=== PATIENT | male | born 1955 | race Caucasian/White ===

== ENCOUNTER → 2020-04-29 09:37 | Outpatient (BNVA) | payer MEDICARE, OTHER, SELFPAY | PROVIDERS: Visit Provider Orthopaedic Surgery | DX: M17.11 Unilateral primary osteoarthritis, right knee (principal) | CPT/HCPCS: 20610; 99212; J1040 ==

== ENCOUNTER → 2020-06-02 09:21 | Outpatient (REF) | payer MEDICARE, OTHER, SELFPAY ==
--- NOTE | 2020-06-02 09:30 | CA_ITS ---
Transthoracic Echocardiogram Patient (Last, First, Middle): Zeb Mcdonald, Gender: Male Date of : 1955 Age: 64 Procedure Date: 06/02/2020 Procedure Type: Transthoracic Echocardiogram Location: OP Height: 187.96 cm Weight: 117.03 kg BSA: 2.42 m2 Heart Rate: bpm BP: 120 / 76 mmHg Handy Man: Referring MD: Raheel York MD Symptoms: I48.0PAF, G47.30 SLEEP APNEA I10 HTN I50.32 HFpEF Study Quality: Fair ECG Rhythm: Sinus Conclusions: - The left ventricular systolic function is low normal. The visually estimated ejection fraction is between 50-55%. - There is mild calcification of the aortic valve. - Top normal ascending aortic size at 3.8 cm. Findings Left Ventricle Normal left ventricular cavity size. There is mildly increased left ventricular wall thickness. The left ventricular systolic function is low normal. The visually estimated ejection fraction is between 50-55%. There is no evidence of regional wall motion abnormalities. Diastolic function is normal for age. Right Ventricle Normal right ventricular cavity size and systolic function. Atria The left atrium is normal in size. The right atrium is normal in size. Aortic Valve There is a normal trileaflet aortic valve. There is mild calcification of the aortic valve. There is no aortic valve stenosis. There is no aortic valve regurgitation. Mitral Valve The mitral valve appears normal. There is trace mitral valve regurgitation. There is no mitral valve stenosis. Pulmonic Valve The pulmonic valve was not well visualized. Tricuspid Valve Normal tricuspid valve structure. There is trace tricuspid valve regurgitation. The pulmonary artery systolic pressure is normal. Great Vessels Top normal ascending aortic size at 3.8 cm. Venous The inferior vena cava is normal in size and collapses greater than 50% with inspiration. Pericardium/Pleural There is no evidence of pericardial effusion. Prior Study Comparison No significant change compared to prior study dated: 05/11/2019. Measurements 2D Linear Measurements RVIDd: 3.51 RVIDd Index: 1.45 IVSd: 1.19 0.6-0.9/0.6-1.0 cm LVIDd: 5.53 3.9-5.3/4.2-5.9 cm LVIDd Index: 2.29 2.4-3.2/2.2-3.1 cm/m2 LVIDs: 3.61 2.0-3.6 cm LVPWd: 1.08 0.7-1.1 cm Ao Root: 3.30 2.1-3.5 cm LA Diam: 3.90 2.7-3.8/3.0-4.0 cm LAIDs Index: 1.61 1.5-2.3 cm/m2 LV Mass: 317.66 67-162/88-224 g LV Mass Index: 131.26 43-95/49-115 g/m2 LVOT Diam: 2.30 3.0+(-)1.3 cm 2D Systolic Function EF 4C: 61.30 >55% EF 2C: 33.70 >55% EF BiP: 50.50 >55% Mitral Valve MV Pk E: 0.57 MV PK A: 0.81 MV Decel Time: 259.00 E/A: 0.70 E'Lateral: 6.09 E'Medial: 5.22 E/E' Med: 10.90 E/E' Lat: 9.30 Aortic Valve AoV Pk Watson: 1.21 AoV Mn Watson: 0.95 AoV VTI: 0.29 AoV Pk Grad: 6.00 Aov Mn Grad: 4.00 NANCY Cont.VTI: 3.41 LVOT LVOT Pk Watson: 1.20 LVOT Mn Watson: 0.80 LVOT VTI: 0.24 LVOT Pk Grad: 6.00 LVOT Mn Grad: 3.00 LVOT Diam: 2.30 LVOT Area: 4.15 Diastolic Function MV Pk E: 0.57 MV Pk A: 0.81 E/A: 0.70 E'Medial: 5.22 E/E' Med: 10.90 E' Laterial: 6.09 E/E' Lat: 9.30 Tricuspid Valve TR Pk Watson: 2.42 TR Pk Grad: 23.00 RA Press: 3.00 RVSP: 26.00 Great Vessels Aorta Ao Root-2D: 3.30 2.0-3.7 cm Ao Asc: 3.80 2.1-3.4 cm Ao Arch: 3.20 Updated in Other Vendor System with Status of Final Liang Donnelly MD electronically signed on 06/02/2020 4:36:20 PM with status of Final
== END ==
LOC: HO.CARD 09:21
PROVIDERS: Visit Provider Internal Medicine Cardiovascular Disease
DX: I48.0 Paroxysmal atrial fibrillation (principal); G47.30 Sleep apnea, unspecified; I50.32 Chronic diastolic (congestive) heart failure; I11.0 Hypertensive heart disease with heart failure
CPT/HCPCS: 93306

== ENCOUNTER → 2020-06-16 08:42 | Outpatient (BNVA) | payer MEDICARE, MEDICAID, OTHER, SELFPAY | PROVIDERS: Visit Provider Internal Medicine Cardiovascular Disease | DX: I48.0 Paroxysmal atrial fibrillation (principal); I50.32 Chronic diastolic (congestive) heart failure; I10 Essential (primary) hypertension | CPT/HCPCS: 93005; 99212 ==

== ENCOUNTER → 2020-10-28 09:29 | Outpatient (BNVA) | payer MEDICARE, OTHER, SELFPAY | PROVIDERS: Visit Provider Orthopaedic Surgery | DX: M17.11 Unilateral primary osteoarthritis, right knee (principal) | CPT/HCPCS: 20610; 99212; J1040 ==

== ENCOUNTER 2021-02-10 08:33 | Outpatient (REF) | payer MEDICARE, OTHER, SELFPAY ==
--- NOTE | ~2021-02-10 | MR_ITS ---
MRI OF THE BRAIN WITH AND WITHOUT IV CONTRAST INDICATION: TINNITUS BILATERAL COMPARISON: None available. TECHNIQUE: Multiplanar multisequence MR imaging of the brain was obtained without and following the administration of 10 ml of Gadavist without complication with dedicated IAC pulse series. FINDINGS: The inner ear structures including the cochlea, vestibules, and semicircular canals exhibit preserved CSF signal intensity with no pathologic enhancement. The vestibular aqueducts are not enlarged. Cranial nerves VII and VIII complexes are normal in morphology. No enhancing CP angle/retrocochlear lesion. There is no pathologic intracranial enhancement. Moderate chronic microangiopathy. No acute infarct on diffusion-weighted imaging. No intracranial hemorrhage on the gradient series. No hydrocephalus, extra-axial surface collection, or herniation. The midline intracranial structures are normal. Cerebellar tonsils are normally positioned. Craniocervical junction is normal. Osseous marrow signal intensity remains homogeneous. No significant soft tissue abnormality is appreciated. MR/MR head/brain wo/w con IMPRESSION: - No retrocochlear pathology. - Moderate chronic microangiopathy.
[2021-02-10 09:10] LABS: Blood Urea Nitrogen 11 mg/dL (9-16); Estimated Glomerular Filt Rate > 60
== END 2021-02-10 08:34 | disposition home or self-care (01) ==
LOC: HO.MRI 08:33
PROVIDERS: Absent Provider Internal Medicine; PCP Internal Medicine; Visit Provider Internal Medicine
DX: I10 Essential (primary) hypertension (principal); H93.13 Tinnitus, bilateral
CPT/HCPCS: 36415; 70553; 82565; 84520; A9585

== ENCOUNTER 2021-05-03 07:35 | Outpatient (REF) | payer MEDICARE, OTHER, SELFPAY ==
--- NOTE | ~2021-05-03 | XR_ITS ---
EXAMINATION: XR KNEE, RIGHT XR KNEE, BILATERAL CLINICAL INFORMATION: Pain COMPARISON: 12/02/2019 TECHNIQUE: AP standing view of both knees. Lateral and sunrise views of the right knee. FINDINGS: Right knee: No fracture or subluxation. Severe medial compartment joint space narrowing with [id number] appearance. This is similar to prior. Mild narrowing at the patellofemoral compartment. Prominent tricompartmental marginal osteophytes. No joint effusion. Vascular calcifications. Left knee: No fracture or subluxation. Mild medial compartment joint space narrowing noted. Small marginal osteophytes at the medial and lateral compartments. XR/XR knee standing BI IMPRESSION: Right knee: Advanced tricompartmental degenerative changes which are greatest at the medial compartment with severe narrowing. Left knee: Mild narrowing of the medial compartment, similar to prior.
--- NOTE | ~2021-05-03 | XR_ITS ---
EXAMINATION: XR KNEE, RIGHT XR KNEE, BILATERAL CLINICAL INFORMATION: Pain COMPARISON: 12/02/2019 TECHNIQUE: AP standing view of both knees. Lateral and sunrise views of the right knee. FINDINGS: Right knee: No fracture or subluxation. Severe medial compartment joint space narrowing with [id number] appearance. This is similar to prior. Mild narrowing at the patellofemoral compartment. Prominent tricompartmental marginal osteophytes. No joint effusion. Vascular calcifications. Left knee: No fracture or subluxation. Mild medial compartment joint space narrowing noted. Small marginal osteophytes at the medial and lateral compartments. XR/XR knee RT 2V IMPRESSION: Right knee: Advanced tricompartmental degenerative changes which are greatest at the medial compartment with severe narrowing. Left knee: Mild narrowing of the medial compartment, similar to prior.
== END 2021-05-03 07:36 | disposition home or self-care (01) ==
LOC: HO.HOSX 07:35
PROVIDERS: Visit Provider Physician Assistant
DX: M17.11 Unilateral primary osteoarthritis, right knee (principal)
CPT/HCPCS: 20610; 73560; 73565; 99212; J1040

== ENCOUNTER 2021-06-17 08:26 | Outpatient (REF) | payer MEDICARE, OTHER, SELFPAY ==
[2021-06-17 10:33] LABS: Anion Gap 10 (12-20); Blood Urea Nitrogen 13 mg/dL (9-16); Calcium 9.6 mg/dL (8.4-10.2); Carbon Dioxide 32 mmol/L (22-29); Chloride 103 mmol/L (96-108); Estimated Glomerular Filt Rate > 60; Glucose Random 92 mg/dL (60-115); Sodium 140 mmol/L (135-145)
[2021-06-17 10:44] LABS: B Type Natriuretic Peptide 41 pg/mL (<100)
== END 2021-06-17 08:27 | disposition home or self-care (01) ==
LOC: HO.LAB 08:26
PROVIDERS: PCP Internal Medicine; Visit Provider Internal Medicine Cardiovascular Disease
DX: I48.0 Paroxysmal atrial fibrillation (principal); I11.0 Hypertensive heart disease with heart failure; I50.32 Chronic diastolic (congestive) heart failure; R00.1 Bradycardia, unspecified; Z79.899 Other long term (current) drug therapy
CPT/HCPCS: 36415; 80048; 83880; 93005; 99212

== ENCOUNTER → 2021-08-09 09:22 | Outpatient (BNVA) | payer MEDICARE, OTHER, SELFPAY | PROVIDERS: PCP Internal Medicine; Visit Provider Physician Assistant | DX: M17.11 Unilateral primary osteoarthritis, right knee (principal) | CPT/HCPCS: 20610; 99212; J1040 ==

== ENCOUNTER → 2021-11-09 08:56 | Outpatient (BNVA) | payer MEDICARE, MEDICAID, SELFPAY | PROVIDERS: PCP Internal Medicine; Visit Provider Physician Assistant | DX: M17.11 Unilateral primary osteoarthritis, right knee (principal) | CPT/HCPCS: 20610; 99212; J1040 ==

== ENCOUNTER → 2022-02-11 09:12 | Outpatient (BNVA) | payer MEDICARE, MEDICAID, SELFPAY | PROVIDERS: PCP Internal Medicine; Visit Provider Physician Assistant | DX: M17.11 Unilateral primary osteoarthritis, right knee (principal) | CPT/HCPCS: 20610; 99212; J1040 ==

== ENCOUNTER → 2022-05-13 09:13 | Outpatient (BNVA) | payer MEDICARE, MEDICAID, SELFPAY | PROVIDERS: PCP Internal Medicine; Visit Provider Physician Assistant | DX: M17.11 Unilateral primary osteoarthritis, right knee (principal) | CPT/HCPCS: 20610; 99212; J1040 ==

== ENCOUNTER → 2022-06-06 08:23 | Outpatient (REF) | payer MEDICARE, MEDICAID, SELFPAY ==
--- NOTE | 2022-06-06 08:27 | CA_ITS ---
Transthoracic Echocardiogram Patient (Last, First, Middle): Zeb Mcdonald, Gender: Male Date of : 1955 Age: 66 Procedure Date: 06/06/2022 Procedure Type: Transthoracic Echocardiogram Location: OP Height: 187.96 cm Weight: 116.12 kg BSA: 2.41 m2 Heart Rate: 56 bpm BP: 134 / 68 mmHg Batch Still Operator: Referring MD: Raheel York MD Symptoms: I48.0 - Paroxysmal atrial fibrillation Study Quality: Adequate ECG Rhythm: Sinus Conclusions: - The left ventricular systolic function is normal. The calculated ejection fraction is 60% by biplane method. - No obvious valvular pathology seen on this study. - There is mild dilatation of the ascending aorta measuring 4.00 cm. Findings Left Ventricle Normal left ventricular cavity size. There is mildly increased left ventricular wall thickness. The left ventricular systolic function is normal. The calculated ejection fraction is 60% by biplane method. There is no evidence of regional wall motion abnormalities. Diastolic function is normal for age. Right Ventricle Normal right ventricular cavity size and systolic function. Atria Both atria are normal in size. Aortic Valve There is a normal trileaflet aortic valve. There is mild calcification of the aortic valve. There is no aortic valve stenosis. There is no aortic valve regurgitation. Mitral Valve The mitral valve appears normal. There is no mitral valve regurgitation. There is no mitral valve stenosis. Pulmonic Valve The pulmonic valve is likely normal. Tricuspid Valve There is trace tricuspid valve regurgitation. There is no evidence of pulmonary hypertension. Great Vessels There is mild dilatation of the ascending aorta measuring 4.00 cm. Venous The inferior vena cava is normal in size and collapses greater than 50% with inspiration. Pericardium/Pleural There is no evidence of pericardial effusion. Prior Study Comparison Changes noted compared to prior study dated: 06/02/2020. Slight change in ascending aortic size. Recommendations, Care & Conclusions No obvious valvular pathology seen on this study. Measurements 2D Linear Measurements IVSd: 1.23 0.6-0.9/0.6-1.0 cm LVIDd: 4.66 3.9-5.3/4.2-5.9 cm LVIDd Index: 1.93 2.4-3.2/2.2-3.1 cm/m2 LVIDs: 3.15 2.0-3.6 cm LVPWd: 1.24 0.7-1.1 cm Ao Root: 4.10 2.1-3.5 cm LA Diam: 3.70 2.7-3.8/3.0-4.0 cm LAIDs Index: 1.54 1.5-2.3 cm/m2 LV Mass: 271.72 67-162/88-224 g LV Mass Index: 112.75 43-95/49-115 g/m2 LVOT Diam: 2.50 3.0+(-)1.3 cm 2D Systolic Function EF 4C: 64.80 >55% EF 2C: 53.30 >55% EF BiP: 60.20 >55% Mitral Valve MV Pk E: 0.44 MV PK A: 0.79 MV Decel Time: 282.00 E/A: 0.60 E'Lateral: 7.94 E'Medial: 5.22 E/E' Med: 8.40 E/E' Lat: 5.50 PHT: 83.00 MVA PHT: 2.65 Decel [place]: 1.55 Aortic Valve AoV Pk Watson: 1.30 AoV Mn Watson: 0.83 AoV VTI: 0.23 AoV Pk Grad: 7.00 Aov Mn Grad: 3.00 NANCY Cont.VTI: 3.94 LVOT LVOT Pk Watson: 0.84 LVOT Mn Watson: 0.57 LVOT VTI: 0.19 LVOT Pk Grad: 3.00 LVOT Mn Grad: 2.00 LVOT Diam: 2.50 LVOT Area: 4.91 Diastolic Function MV Pk E: 0.44 MV Pk A: 0.79 E/A: 0.60 E'Medial: 5.22 E/E' Med: 8.40 E' Laterial: 7.94 E/E' Lat: 5.50 Right Ventricle TAPSE (mm): 26.00 TVS' Watson: 12.00 Tricuspid Valve TR Pk Watson: 1.88 TR Pk Grad: 14.00 RA Press: 3.00 RVSP: 17.00 Great Vessels Aorta Ao Root-2D: 4.10 2.0-3.7 cm Ao Asc: 4.00 2.1-3.4 cm Pulmonary Valve PV Pk Watson: 0.89 Peak PV Grad: 3.00 Updated in Other Vendor System with Status of Final Liang Donnelly MD electronically signed on 06/07/2022 8:44:18 AM with status of Final
== END ==
LOC: HO.CARD 08:23
PROVIDERS: Visit Provider Internal Medicine Cardiovascular Disease
DX: I48.0 Paroxysmal atrial fibrillation (principal)
CPT/HCPCS: 93306

== ENCOUNTER → 2022-06-20 08:42 | Outpatient (BNVA) | payer MEDICARE, MEDICAID, SELFPAY | PROVIDERS: PCP Internal Medicine; Referring Provider Internal Medicine; Visit Provider Internal Medicine Cardiovascular Disease | DX: I48.0 Paroxysmal atrial fibrillation (principal); I50.32 Chronic diastolic (congestive) heart failure; I71.20 Thoracic aortic aneurysm, without rupture, unspecified | CPT/HCPCS: 93005; 99212 ==

== ENCOUNTER → 2022-08-11 09:14 | Outpatient (BNVA) | payer MEDICARE, MEDICAID, SELFPAY | PROVIDERS: PCP Internal Medicine; Visit Provider Physician Assistant | DX: M17.11 Unilateral primary osteoarthritis, right knee (principal) | CPT/HCPCS: 20610; 99212; J1040 ==

== ENCOUNTER → 2022-11-08 09:04 | Outpatient (BNVA) | payer MEDICARE, MEDICAID, SELFPAY | PROVIDERS: PCP Internal Medicine; Visit Provider Physician Assistant | DX: M17.11 Unilateral primary osteoarthritis, right knee (principal) | CPT/HCPCS: 20610; 99212; J1040 ==

== ENCOUNTER 2023-02-10 09:19 | Outpatient (AMB) | payer MEDICARE, MEDICAID, SELFPAY ==
--- NOTE | 2023-02-10 09:26 | A.OFFVIS_ITS ---
Intake Intake Visit Reasons: OV-RT knee injection, last inject-11/08/22 Intake Note: Zeb is a 67 year old male who presents today for a follow up of right knee OA, last injection 11/08/22. Patient report his last injection helped him for 3 months. He states that he would like to repeat. Allergies No Known Allergies [No Known Allergies*] Allergy (Verified 02/10/23 09:30) HPI OV-RT knee injection, last inject-11/08/22 HPI Details 67-year-old male who presents in the off ice today for a follow up of right knee pain. The patient had a cortisone injection in the right knee on 11/08/2022. He reports 3 months of relief with the injection. He would like a repeat injection today. [facility] Medical History Chronic diastolic (congestive) heart failure Hypertension Paroxysmal atrial fibrillation Primary osteoarthritis of right knee Sleep apnea Family History Mother No problems noted. Father No problems noted. Social History Alcohol intake: current Alcohol intake frequency: a few times a week Alcohol type: wine Patient Tobacco Use Status: Current everyday Tobacco user Cigarettes Per Day: 8 Years Smoked: 50 Current occupational status: retired Current occupation: Right Handed Review of Systems Const All systems reviewed & are unremarkable except as noted in HPI and below Physical Exam Const General: cooperative, healthy appearing and no acute distress Resp Effort & Inspection: normal respiratory effort and able to speak in complete sentences Cardio Rate: regular rate Peripheral pulses: Peripheral pulses 2+ throughout GI Palpation (GI): Soft to palpation Skin Lesions: no lesions Rashes: no rashes Extrem Other: Right knee normal to inspection. No ecchymosis, redness or joint effusion. Patient is able to demonstrate full knee flexion extension. Crepitus felt with knee range of motion. Negative Lanie. NVI. Office Procedures Joint Injection/Drain Joint Injection/Drain Primary Site: right knee Prep: site was prepped using aseptic technique, ethochloride spray was applied and injection warnings given Injected: 80 mg of, DepoMedrol, with 8 mL of ( 2% plain lido ) and in the joint Approach Used: anterolateral Procedure: The patient tolerated the procedure well, but had some pain with the injection and there was some relief with the local anesthesia Coding - Large joint Procedure code (CPT) selection complete Assessment & Plan Assessment & Plan (1) Primary osteoarthritis of right knee: Code(s): M17.11 - Unilateral primary osteoarthritis, right knee Plan Mr. Mcdonald is a 67-year-old male who presents in the office today for a follow up of right knee pain. The patient had a cortisone injection in the right knee on 11/08/2022. He reports 3 months of relief with the injection. He would like a repeat injection today. The patient was offered a cortisone injection in the right knee with 80 mg of DepoMedrol. The patient was explained the risk, benefits, and alternatives to re ceiving this injection. After receiving consent for the injection, the patient had the procedure done while in office today. The patient tolerated the procedure well with no complications. Follow up will be PRN, or sooner if needed. Patient Instructions: Scribed for Marta Murray PA-C by Marcia Medina medical secretary receptionist, on 02/10/2023 at 9:21 am EST. Coding Level of Care Code Est Pt Level 3 (96802) Diagnoses Primary osteoarthritis of right knee M17.11 CPT Codes Coding - Large joint: 32966 - Large joint ([id number])
== END 2023-02-10 09:38 | disposition home or self-care (01) ==
PROVIDERS: PCP Internal Medicine; Visit Provider Physician Assistant
DX: M17.11 Unilateral primary osteoarthritis, right knee (principal)
CPT/HCPCS: 20610; 99213

== ENCOUNTER → 2023-02-10 09:19 | Outpatient (BNVA) | payer MEDICARE, MEDICAID, SELFPAY | PROVIDERS: PCP Internal Medicine; Visit Provider Physician Assistant | DX: M17.11 Unilateral primary osteoarthritis, right knee (principal) | CPT/HCPCS: 20610; 99212; J1040 ==

== ENCOUNTER 2023-02-21 09:51 | Outpatient (REF) | payer MEDICARE, MEDICAID, SELFPAY ==
[2023-02-21 15:19] LABS: Alanine Aminotransferase 29 U/L (0-40); Albumin Level 4.3 g/dL (3.5-5.0); Alkaline Phosphatase 82 U/L (39-117); Anion Gap 11 (12-20); Aspartate Amino Transferase 23 U/L (5-37); Bilirubin Direct 0.2 mg/dL (0.0-0.5); Bilirubin Total 0.6 mg/dL (0.0-1.0); Blood Urea Nitrogen 14 mg/dL (9-16); Calcium 9.5 mg/dL (8.4-10.2); Carbon Dioxide 26 mmol/L (22-29); Chloride 103 mmol/L (96-108); Cholesterol 155 mg/dL (<200); Estimated Glomerular Filt Rate > 60; Glucose Fasting 88 mg/dL (60-99); HDL Cholesterol 39 mg/dL (>40); LDL Cholesterol Calculated 102 mg/dL (<100); Potassium 4.2 mmol/L (3.3-5.1); Sodium 136 mmol/L (135-145); Total Protein 7.5 g/dL (6.5-8.0); Triglycerides 72 mg/dL (<150)
[2023-02-21 15:32] LABS: Estimated Average Glucose 120 mg/dL; Hemoglobin A1c % 5.8 % (<6.0); Prostate Specific Antigen 1.21 ng/mL (<0.05-4.0)
[2023-02-21 15:36] LABS: TSH reflex Free T4 1.58 uIU/mL (0.32-4.0)
[2023-02-22 04:20] LABS: ~HepC Num1 13.04 S/CO (0.00-0.79); ~Hepatitis C Antibody Reactive (Nonreactive)
[2023-02-25 21:38] LABS: HIV RNA PCR Qn Copies Not Detected Copies/mL; HIV RNA PCR Qn Log Copies Not Detected Log cps/mL
== END 2023-02-21 09:52 | disposition home or self-care (01) ==
LOC: HO.CHCLDS 09:51
PROVIDERS: Visit Provider Internal Medicine
DX: Z12.5 Encounter for screening for malignant neoplasm of prostate (principal); I48.21 Permanent atrial fibrillation; I10 Essential (primary) hypertension; E78.2 Mixed hyperlipidemia; N42.9 Disorder of prostate, unspecified; E88.81 Metabolic syndrome and other insulin resistance
CPT/HCPCS: 36415; 80048; 80061; 80076; 83036; 84153; 84443; 86803; 87522; 87536; 87900

== ENCOUNTER 2023-05-12 09:24 | Outpatient (AMB) | payer MEDICARE, MEDICAID, SELFPAY ==
--- NOTE | 2023-05-12 09:34 | A.OFFVIS_ITS ---
Intake Intake Visit Reasons: OV-RT knee injection, last inject-02/10/23 Intake Note: Zeb is a 67 year old male who presents today for a follow up of right knee OA, last injection 02/10/23. Patient report Allergies No Known Allergies [No Known Allergies*] Allergy (Verified 02/10/23 09:30) HPI OV-RT knee injection, last inject-02/10/23 HPI Details 67-year-old male who presents in the off ice today for a follow up of right knee pain. I last saw the patient in the office on 02/10/2023 where he received a cortisone injection in the right knee. [facility] Medical History Chronic diastolic (congestive) heart failure Hypertension Paroxysmal atrial fibrillation Primary osteoarthritis of right knee Sleep apnea Family History Mother No problems noted. Father No problems noted. Social History Alcohol intake: current Alcohol intake frequency: a few times a week Alcohol type: wine Patient Tobacco Use Status: Current everyday Tobacco user Cigarettes Per Day: 8 Years Smoked: 50 Current occupational status: retired Current occupation: Right Handed Review of Systems Const All systems reviewed & are unremarkable except as noted in HPI and below Physical Exam Const General: cooperative, healthy appearing and no acute distress Resp Effort & Inspection: normal respiratory effort and able to speak in complete sentences Cardio Rate: regular rate Peripheral pulses: Peripheral pulses 2+ throughout GI Palpation (GI): Soft to palpation Skin Lesions: no lesions Rashes: no rashes Extrem Other: Right knee normal to inspection. No ecchymosis, redness or joint effusion. Patient is able to demonstrate full knee flexion extension. Crepitus felt with knee range of motion. Negative Lanie. NVI. Office Procedures Joint Injection/Drain Joint Injection/Drain Primary Site: right knee Prep: site was prepped using aseptic technique, ethochloride spray was applied and injection warnings given Injected: 80 mg of, DepoMedrol, with 8 mL of (2% plain lido ) and in the joint Approach Used: anterolateral Procedure: The patient tolerated the procedure well, but had some pain with the injection and there was some relief with the local anesthesia Coding 79440 - Large joint Procedure code (CPT) selection complete Assessment & Plan Assessment & Plan (1) Primary osteoarthritis of right knee: Code(s): M17.11 - Unilateral primary osteoarthritis, right knee Plan Mr. Mcdonald is a 67-year-old male who presents in the office today for a follow up of right knee pain. I last saw the patient in the office on 02/10/2023 where he received a cortisone injection in the right knee. The patient was offered a cortisone injection in the right knee with 80 mg of DepoMedrol. The patient was explained the risk, benefits, and alternatives to receiving this injection. After receiving consent for the injection, the patient had the procedure done while in office today. The patient tolerated the procedure well with no complications. Follow up will be PRN, or sooner if needed. Patient Instructions: Scribed for Marta Murray PA-C by Marcia Medina medical collections specialist, on 05/12/2023 at 9:25 am, EST. Coding Level of Care Code Est Pt Level 3 (39832) Diagnoses Primary osteoarthritis of right knee M17.11 CPT Codes Coding - 34276 Large joint: 07235 - Large joint ([id number])
== END 2023-05-12 09:44 | disposition home or self-care (01) ==
PROVIDERS: PCP Internal Medicine; Visit Provider Physician Assistant
DX: M17.11 Unilateral primary osteoarthritis, right knee (principal)
CPT/HCPCS: 20610

== ENCOUNTER → 2023-05-12 09:24 | Outpatient (BNVA) | payer MEDICARE, MEDICAID, SELFPAY | PROVIDERS: PCP Internal Medicine; Visit Provider Physician Assistant | DX: M17.11 Unilateral primary osteoarthritis, right knee (principal) | CPT/HCPCS: 20610; J1040 ==

== ENCOUNTER → 2023-06-07 10:02 | Outpatient (REF) | payer MEDICARE, MEDICAID, SELFPAY ==
--- NOTE | 2023-06-07 10:05 | CA_ITS ---
Transthoracic Echocardiogram Patient (Last, First, Middle): Zeb Mcdonald, Gender: Male Date of : 1955 Age: 67 Procedure Date: 06/07/2023 Procedure Type: Transthoracic Echocardiogram Location: OP Height: 187.96 cm Weight: 115.67 kg BSA: 2.41 m2 Heart Rate: 80 bpm BP: 128 / 80 mmHg Drafter [employer] Layout: [email or web address] Referring MD: Raheel York MD Vehicle Maintenance Supervisor: Raheel York MD Symptoms: I71.20 - Thoracic aortic aneurysm, without rupture, unspecified Study Quality: Fair but adequate ECG Rhythm: Bradycardia Conclusions: - 1. Normal LV ejection fraction of 60-65% with impaired relaxation filling pattern 2. Normal cardiac valvular Doppler 3. Mildly dilated ascending aorta at 4.2 cm 4. No gross pericardial effusion Findings Left Ventricle Normal left ventricular size, thickness, and systolic function. The visually estimated ejection fraction is between 60-65%. Spectral Doppler is indicative of an impaired relaxation filling pattern. E/E prime ratio is between 8 and 15 consistent with indeterminate filling pressures. Right Ventricle Normal right ventricular cavity size and systolic function. Atria The left atrium is likely dilated. There is lipomatous hypertrophy of the interatrial septum. There is no evidence of interatrial shunt. The right atrium was not well visualized. Aortic Valve The aortic valve was not well visualized. There is mild calcification of the aortic valve. There is no aortic valve stenosis. There is no aortic valve regurgitation. Mitral Valve There is mild anterior and posterior mitral leaflet thickening. There is trace mitral valve regurgitation. There is no mitral valve stenosis. Tricuspid Valve Likely normal tricuspid valve structure and function. Tricuspid regurgitation envelope is inadequate for calculation of right ventricular systolic pressure. Normal right atrial pressure. Great Vessels The pulmonary artery was not well visualized. There is mild dilatation of the ascending aorta measuring 4.20 cm. Venous The inferior vena cava is normal in size and collapses greater than 50% with inspiration. Pericardium/Pleural There is no evidence of pericardial effusion. Prior Study Comparison Changes noted compared to prior study dated: 06/06/2022. ascending aorta is minimally enlarged compared to prior study with measured size at 4.2 cm Measurements 2D Linear Measurements IVSd: 1.01 0.6-0.9/0.6-1.0 cm LVIDd: 5.44 3.9-5.3/4.2-5.9 cm LVIDd Index: 2.26 2.4-3.2/2.2-3.1 cm/m2 LVIDs: 4.20 2.0-3.6 cm LVPWd: 0.92 0.7-1.1 cm LA Diam: 3.80 2.7-3.8/3.0-4.0 cm LAIDs Index: 1.58 1.5-2.3 cm/m2 LV Mass: 280.33 67-162/88-224 g LV Mass Index: 116.32 43-95/49-115 g/m2 LVOT Diam: 2.30 3.0+(-)1.3 cm 2D Systolic Function EF 4C: 65.20 >55% EF 2C: 68.60 >55% EF BiP: 65.20 >55% Mitral Valve MV Pk E: 0.50 MV PK A: 0.75 MV Decel Time: 227.00 E/A: 0.70 E'Lateral: 6.85 E'Medial: 5.44 E/E' Med: 9.10 E/E' Lat: 7.30 PHT: 66.00 MVA PHT: 3.33 Decel [place]: 2.19 Aortic Valve AoV Pk Watson: 0.98 AoV Pk Grad: 4.00 NANCY: 3.90 LVOT LVOT Pk Watson: 0.90 LVOT Mn Watson: 0.61 LVOT VTI: 0.19 LVOT Pk Grad: 3.00 LVOT Mn Grad: 2.00 LVOT Diam: 2.30 LVOT Area: 4.15 Diastolic Function MV Pk E: 0.50 MV Pk A: 0.75 E/A: 0.70 E'Medial: 5.44 E/E' Med: 9.10 E' Laterial: 6.85 E/E' Lat: 7.30 Right Ventricle TAPSE (mm): 18.00 TVS' Watson: 10.00 Tricuspid Valve RA Press: 3.00 Great Vessels Aorta Sinus of Valsalva: 4.30 2.0-3.5 cm Ao Asc: 4.20 2.1-3.4 cm Ao Arch: 3.40 Pulmonary Veins Pulm Vein S/D 1.80 Pulmonary Valve PV Pk Watson: 0.90 Peak PV Grad: 3.00 Updated in Other Vendor System with Status of Final Raheel York MD electronically signed on 06/08/2023 11:22:40 AM with status of Final
== END ==
LOC: HO.CARD 10:02
PROVIDERS: PCP Internal Medicine; Visit Provider Internal Medicine Cardiovascular Disease
DX: I71.20 Thoracic aortic aneurysm, without rupture, unspecified (principal)
CPT/HCPCS: 93306

== ENCOUNTER → 2023-06-07 10:05 | Outpatient (BNV) | payer MEDICARE, MEDICAID, SELFPAY | PROVIDERS: PCP Internal Medicine; Visit Provider Internal Medicine Cardiovascular Disease | DX: I35.8 Other nonrheumatic aortic valve disorders (principal); I34.89 Other nonrheumatic mitral valve disorders | CPT/HCPCS: 93306 ==

== ENCOUNTER 2023-06-15 10:07 | Outpatient (AMB) | payer MEDICARE, MEDICAID, SELFPAY ==
[2023-06-15 10:23] VITALS: BP 122/76; PULSE 55; BMI 34.0
--- NOTE | 2023-06-15 10:23 | MHC.OFFVIS ---
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 He has been doing well from cardiac perspective. Denies any prolonged palpitations, irregular heartbeat, fast heart rate. Blood pressure is generally well controlled. Denies exertional chest pain or shortness of breath. Denies any orthopnea, PND, leg edema. No bleeding issues or neurologic events. Recent echocardiogram shows stable ascending aortic aneurysm at 4.2 cm, with normal LV systolic function with impaired relaxation filling pattern [facility] Medical History Primary osteoarthritis of right knee Chronic diastolic (congestive) heart failure Hypertension Sleep apnea Paroxysmal atrial fibrillation Family History Mother No problems noted. Father No problems noted. Social History Alcohol intake: current Alcohol intake frequency: a few times a week Alcohol type: wine Patient Tobacco Use Status: Current everyday Tobacco user Cigarettes Per Day: 8 Years Smoked: 50 Current occupational status: retired Current occupation: Right Handed Review of Systems Const Denies chills, Denies fatigue, Denies fever(s), Denies frequent falls, Denies weakness, Denies weight gain and Denies weight loss ENT Denies dizziness Card Denies chest pain, Denies leg edema, Denies lightheadedness, Denies palpitations, Denies dyspnea, Denies dyspnea on exertion, Denies orthopnea and Denies other (loss of consciousness) Resp Denies cough, Denies dyspnea and Denies dyspnea on exertion GI Denies hematochezia and Denies change in stool character Musc Denies abnormal gait, Denies muscle weakness, Denies numbness, Denies radiating pain into limb and Denies tingling Neuro Denies abnormal gait, Denies dizziness, Denies frequent falls, Denies numbness, Denies tingling and Denies weakness Endo Denies fatigue and Denies palpitations Physical Exam Vital Signs: Last Vital Signs Pulse 55 06/15/23 10:23 BP 122/76 06/15/23 10:23 BMI result Body Mass Index 34.0 Const General: cooperative, comfortable, alert and awake Nutritional Appearance: obese Orientation/consciousness: patient oriented x3 Limitations: no limitations HEENT Head: Yes normocephalic and Yes atraumatic Neck Neck: Yes trachea midline, Yes supple and Yes no JVD Chest Chest palpation & inspection: normal inspection of the chest Resp Effort & Inspection: normal respiratory effort Auscultation: clear to auscultation bilaterally Cardio Jugular venous distension: no JVD Palpation: normal PMI Rate: regular rate Rhythm: regular rhythm Heart sounds: S1 normal heart sound present, S2 normal heart sound present and Other heart sounds present (Soft S4) GI Auscultation: normal bowel sounds Skin General skin exam: no rashes or lesions noted Neuro General: patient oriented x3 and no focal motor deficits Extrem General: Yes no clubbing, cyanosis or edema Psych Appearance: grossly normal Office Procedures EKG Details: EKG shows sinus bradycardia 55 beats per minute with low-voltage QRS with poor R-wave progression most likely due to body habitus 43681-[id number], Complete Assessment & Plan Assessment & Plan (1) Paroxysmal atrial fibrillation: Code(s): I48.0 - Paroxysmal atrial fibrillation Plan: Paroxysmal atrial fibrillation which has remained suppressed and has done well with rhythm control approach. Continue pursue rhythm control approach. Continue metoprolol therapy. Advised to call me with new symptoms. No indication for antiarrhythmic drug therapy. Continue aggressive control blood pressure. CHADSVASc score of 3. Continue full oral anticoagulation, currently on Xarelto. Semi annual renal function test should be pursued. (2) Chronic diastolic (congestive) heart failure: Code(s): I50.32 - Chronic diastolic (congestive) heart failure Plan: Heart failure in the setting of atrial fibrillation. Has done well with rhythm control approach will continue pursue rhythm control approach. Continue aggressive control blood pressure which is well optimized. Signs and symptoms of heart failure were discussed. Daily weight monitoring avoidance of salt loading was discussed. Continue spironolactone for neurohormonal modulation. No indication for loop diuretics at clinically appears to be euvolemic and well compensated. (3) Thoracic aortic aneurysm: Code(s): I71.20 - Thoracic aortic aneurysm, without rupture, unspecified Plan: Thoracic aortic aneurysm which has remained stable 4.2 cm. Continue monitor annually by echocardiogram. Continue aggressive blood pressure control as above. Target goal blood pressure less than 130/84. Advised to avoid sudden strenuous isometric exercise. No indication for surgical intervention. Will follow up in the clinic in 1 year's time, sooner p.r.n.. Thank you for allowing me to partake in his care Orders: Orders Basic Metabolic Panel Today I48.0 - Paroxysmal atrial fibrillation Complete Blood Count no Diff Today I48.0 - Paroxysmal atrial fibrillation CA echo transthoracic complete 50 Weeks I71.20 - Thoracic aortic aneurysm, without rupture, unspecified Coding Level of Care Code Est Pt Level 4 (01740) Diagnoses Paroxysmal atrial fibrillation I48.0 Chronic diastolic (congestive) heart failure I50.32 Thoracic aortic aneurysm I71.20 CPT Codes EKG - CPT: 93349-[id number], Complete ([id number])
== END 2023-06-15 10:44 | disposition home or self-care (01) ==
PROVIDERS: PCP Internal Medicine; Visit Provider Internal Medicine Cardiovascular Disease
DX: I48.0 Paroxysmal atrial fibrillation (principal); I50.32 Chronic diastolic (congestive) heart failure; I71.20 Thoracic aortic aneurysm, without rupture, unspecified
CPT/HCPCS: 93010; 99214

== ENCOUNTER 2023-06-15 10:07 | Outpatient (REF) | payer MEDICARE, MEDICAID, SELFPAY ==
[2023-06-15 11:33] LABS: Hematocrit 46.7 % (42.0-52.0); Hemoglobin 16.2 g/dl (14.0-18.0); Mean Corpuscular HGB Conc 34.7 g/dl (31.0-36.0); Mean Corpuscular Hemoglobin 31.8 pg (27.0-33.0); Mean Corpuscular Volume 91.6 fL (80.0-98.0); Mean Platelet Volume 9.1 fL (9.4-12.4); Platelet Count 191 X10*3/uL (160-400); Red Cell Distribution Width 12.8 % (11.0-16.0); White Blood Count 9.6 X10*3/uL (4.8-10.8)
[2023-06-15 11:54] LABS: Anion Gap 12 (12-20); Blood Urea Nitrogen 14 mg/dL (9-16); Calcium 9.8 mg/dL (8.4-10.2); Carbon Dioxide 28 mmol/L (22-29); Chloride 104 mmol/L (96-108); Estimated Glomerular Filt Rate > 60; Glucose Random 88 mg/dL (60-115); Potassium 4.6 mmol/L (3.3-5.1); Sodium 139 mmol/L (135-145)
== END 2023-06-15 10:08 | disposition home or self-care (01) ==
LOC: HO.LAB 10:07
PROVIDERS: PCP Internal Medicine; Visit Provider Internal Medicine Cardiovascular Disease
DX: I48.0 Paroxysmal atrial fibrillation (principal); I50.32 Chronic diastolic (congestive) heart failure; I71.20 Thoracic aortic aneurysm, without rupture, unspecified
CPT/HCPCS: 36415; 80048; 85027; 93005; 99212

== ENCOUNTER 2023-08-15 09:17 | Outpatient (AMB) | payer MEDICARE, MEDICAID, SELFPAY ==
--- NOTE | 2023-08-15 09:20 | A.OFFVIS_ITS ---
Intake Intake Visit Reasons: OV-RT knee injection, last inject 05/12/23 Intake Note: Zeb is a 67 year old male who presents today for a follow up of right knee OA, last injection 05/12/23. Patient reports his last injection gave him 3 months of relief. He would like to repeat. Allergies No Known Allergies [No Known Allergies*] Allergy (Verified 08/15/23 09:22) HPI OV-RT knee injection, last inject 05/12/23 HPI Details 67-year-old male who presents in the off ice today for a follow up of right knee pain. I last saw the patient in the office on 05/12/2023 where he received a cortisone injection in the right knee. While in the office today the patient reports the last injection gave him 3 months of relief and he would like to repeat the injection today. [facility] Medical History Primary osteoarthritis of right knee Chronic diastolic (congestive) heart failure Hypertension Sleep apnea Paroxysmal atrial fibrillation Family History Mother No problems noted. Father No problems noted. Social History Alcohol intake: current Alcohol intake frequency: a few times a week Alcohol type: wine Patient Tobacco Use Status: Current everyday Tobacco user Cigarettes Per Day: 8 Years Smoked: 50 Current occupational status: retired Current occupation: Right Handed Review of Systems Const All systems reviewed & are unremarkable except as noted in HPI and below Physical Exam Const General: cooperative, healthy appearing and no acute distress Resp Effort & Inspection: normal respiratory effort and able to speak in complete sentences Cardio Rate: regular rate Peripheral pulses: Peripheral pulses 2+ throughout GI Palpation (GI): Soft to palpation Skin Lesions: no lesions Rashes: no rashes Extrem Other: Right knee normal to inspection. No ecchymosis, redness or joint effusion. Patient is able to demonstrate full knee flexion extension. Crepitus felt with knee range of motion. Negative Lanie. NVI. Office Procedures Joint Injection/Drain Joint Injection/Drain Primary Site: right knee Prep: site was prepped using aseptic technique, ethochloride spray was applied and injection warnings given Injected: 80 mg of, DepoMedrol, with 8 mL of (2% plain lido ) and in the joint Approach Used: anterolateral Procedure: The patient tolerated the procedure well, but had some pain with the injection and there was some relief with the local anesthesia Coding - Large joint Procedure code (CPT) selection complete Assessment & Plan Assessment & Plan (1) Primary osteoarthritis of right knee: Code(s): M17.11 - Unilateral primary osteoarthritis, right knee Plan Mr. Mcdonald is a 67-year-old male who presents in the office today for a follow up of right knee pain. I last saw the patient in the office on 05/12/2023 where he received a cortisone injection in the right knee. While in the office today the patient reports the last injection gave him 3 months of relief and he would like to repeat the injection today. The patient was offered a cortisone injection in the right knee with 80 mg of DepoMedrol. The patient was explained the risk, benefits, and alternatives to receiving this injection. After receiving consent for the injection, the patient had the procedure done while in office today. The patient tolerated the procedure well with no complications. Follow up will be PRN, or sooner if needed. Patient Instructions: Scribed by Marcia Medina medical physics researcher, for Marta Murray PA-C on 08/15/2023 at 9:25 am, EST. Coding Level of Care Code Est Pt Level 3 (76564) Diagnoses Primary osteoarthritis of right knee M17.11 CPT Codes Coding - Large joint: 74818 - Large joint ([id number])
== END 2023-08-15 09:53 | disposition home or self-care (01) ==
PROVIDERS: PCP Internal Medicine; Visit Provider Physician Assistant
DX: M17.11 Unilateral primary osteoarthritis, right knee (principal)
CPT/HCPCS: 20610; 99213

== ENCOUNTER → 2023-08-15 09:17 | Outpatient (BNVA) | payer MEDICARE, MEDICAID, SELFPAY | PROVIDERS: PCP Internal Medicine; Visit Provider Physician Assistant | DX: M17.11 Unilateral primary osteoarthritis, right knee (principal) | CPT/HCPCS: 20610; 99212; J1040 ==

== ENCOUNTER 2023-11-06 12:56 | Outpatient (AMB) | payer MEDICARE, MEDICAID, SELFPAY ==
--- NOTE | 2023-11-06 13:10 | MHC.OFFVIS ---
Intake Visit Reasons: OV-RT knee injection, last inject 08/15/2023 Intake Note: Zeb is a 68 year old male who presents today for a repeat injection for his right knee, last injection was on 08/15/23. Patient reports his last injection gave him a good amount relief. Allergies No Known Allergies [No Known Allergies*] Allergy (Verified 11/06/23 13:12) HPI HPI OV-RT knee injection, last inject 08/15/2023: Details: 68-year-old male who presents in the office today for a follow-up of right knee osteoarthritis. I last saw the patient in the office on 08/15/2023 when he was given a cortisone injection in the right knee. While in the office today the patient reports his last cortisone injection gave him a good amount of relief. He would like to repeat the injection today. [facility] Medical History Primary osteoarthritis of right knee Chronic diastolic (congestive) heart failure Hypertension Sleep apnea Paroxysmal atrial fibrillation Family History Mother No problems noted. Father No problems noted. Social History Alcohol intake: current Alcohol intake frequency: a few times a week Alcohol type: wine Patient Tobacco Use Status: Current everyday Tobacco user Cigarettes Per Day: 8 Years Smoked: 50 Current occupational status: retired Current occupation: Right Handed Review of Systems Const All systems reviewed & are unremarkable except as noted in HPI and below Physical Exam Const General: cooperative, healthy appearing and no acute distress Resp Effort & Inspection: normal respiratory effort and able to speak in complete sentences Cardio Rate: regular rate Peripheral pulses: Peripheral pulses 2+ throughout GI Palpation (GI): Soft to palpation Skin Lesions: no lesions Rashes: no rashes Extrem Other: Right knee: Normal to inspection. No ecchymosis, redness or joint effusion. Patient is able to demonstrate full knee flexion extension. Crepitus felt with knee range of motion. Negative Lanie. NVI. Office Procedures Joint Injection/Drain Joint Injection/Drain Primary Site: right knee Prep: site was prepped using aseptic technique, ethochloride spray was applied and injection warnings given Injected: 80 mg of, DepoMedrol, with 8 mL of (2% plain lido) and in the joint Approach Used: anterolateral Procedure: The patient tolerated the procedure well, but had some pain with the injection and there was some relief with the local anesthesia Coding - Large joint Procedure code (CPT) selection complete Assessment & Plan Assessment & Plan (1) Primary osteoarthritis of right knee: Code(s): M17.11 - Unilateral primary osteoarthritis, right knee Category: Medical Plan Mr. Mcdonald is a 68-year-old male who presents in the office today for a follow-up of right knee osteoarthritis. I last saw the patient in the office on 08/15/2023 when he was given a cortisone injection in the right knee. While in the office today the patient reports his last cortisone injection gave him a good amount of relief. He would like to repeat the injection today. The patient was offered a cortisone injection in the right knee with 80 mg of DepoMedrol. The patient was explained the risk, benefits, and alternatives to receiving this injection. After receiving consent for the injection, the patient had the procedure done while in the office today. The patient tolerated the procedure well with no complications. Follow up will be PRN, or sooner if needed. Patient Instructions: Scribed by Marcia Medina certified court/medical interpreter, for Marta Murray PA-C on 11/06/2023 at 12:57 pm, EST. Coding Level of Care Code Est Pt Level 3 (41939) Diagnoses Primary osteoarthritis of right knee M17.11 CPT Codes Coding - Large joint: 22791 - Large joint ([id number])
== END 2023-11-06 13:22 | disposition home or self-care (01) ==
LOC: HO.HOS 12:56
PROVIDERS: PCP Internal Medicine; Visit Provider Physician Assistant
DX: M17.11 Unilateral primary osteoarthritis, right knee (principal)
CPT/HCPCS: 20610; 99213

== ENCOUNTER → 2023-11-06 12:56 | Outpatient (BNVA) | payer MEDICARE, MEDICAID, SELFPAY | PROVIDERS: PCP Internal Medicine; Visit Provider Physician Assistant | DX: M17.11 Unilateral primary osteoarthritis, right knee (principal) | CPT/HCPCS: 20610; 99212; J1010 ==

== ENCOUNTER 2023-12-27 09:38 | Outpatient (REF) | payer MEDICARE, MEDICAID, SELFPAY ==
[2023-12-27 14:39] LABS: MANUAL DIFF FLAG NO
[2023-12-27 14:43] LABS: Basophils Absolute Auto 0.1 X10*3/uL (0.0-0.2); Basophils Percent Auto 0.8 % (0-2); Eosinophils Absolute Auto 0.2 X10*3/uL (0.0-0.4); Hematocrit 49.8 % (42.0-52.0); Hemoglobin 17.1 g/dl (14.0-18.0); Imm Gran Abs Auto 0.07 X10*3/uL (0.00-0.03); Imm Gran Pct Auto 0.8 % (0.0-0.4); Lymphocytes Absolute Auto 1.9 X10*3/uL (1.2-4.9); Lymphocytes Percent Auto 21.1 % (20-40); Mean Corpuscular HGB Conc 34.3 g/dl (31.0-36.0); Mean Corpuscular Hemoglobin 31.3 pg (27.0-33.0); Mean Corpuscular Volume 91.2 fL (80.0-98.0); Mean Platelet Volume 9.7 fL (9.4-12.4); Monocytes Absolute Auto 0.8 X10*3/uL (0.1-1.2); Monocytes Percent Auto 8.6 % (2-11); Neutrophils Absolute Auto 6.1 x10*3/uL (2.0-8.3); Neutrophils Percent Auto 66.7 % (45-73); Platelet Count 199 X10*3/uL (160-400); Red Blood Count 5.46 X10*6/uL (4.60-5.80); Red Cell Distribution Width 12.8 % (11.0-16.0); White Blood Count 9.1 X10*3/uL (4.8-10.8)
[2023-12-27 15:01] LABS: Alanine Aminotransferase 23 U/L (0-40); Albumin Level 4.2 g/dL (3.5-5.0); Alkaline Phosphatase 67 U/L (39-117); Anion Gap 11 (12-20); Aspartate Amino Transferase 23 U/L (5-37); Bilirubin Total 0.8 mg/dL (0.0-1.0); Blood Urea Nitrogen 11 mg/dL (9-16); Calcium 10.1 mg/dL (8.4-10.2); Carbon Dioxide 28 mmol/L (22-29); Chloride 98 mmol/L (96-108); Cholesterol 200 mg/dL (<200); Estimated Glomerular Filt Rate > 60; Glucose Random 96 mg/dL (60-115); HDL Cholesterol 38 mg/dL (>40); LDL Cholesterol Calculated 142 mg/dL (<100); Potassium 4.3 mmol/L (3.3-5.1); Sodium 133 mmol/L (135-145); Total Protein 7.3 g/dL (6.5-8.0); Triglycerides 101 mg/dL (<150)
[2023-12-27 15:18] LABS: TSH reflex Free T4 1.38 uIU/mL (0.32-4.0)
== END 2023-12-27 09:39 | disposition home or self-care (01) ==
LOC: HO.CHCLDS 09:38
PROVIDERS: Visit Provider Internal Medicine
DX: I10 Essential (primary) hypertension (principal)
CPT/HCPCS: 36415; 80053; 80061; 84443; 85025

== ENCOUNTER 2024-02-13 09:05 | Outpatient (AMB) | payer MEDICARE, MEDICAID, SELFPAY ==
--- NOTE | 2024-02-13 09:08 | MHC.OFFVIS ---
Intake Visit Reasons: right knee injection, last inj 11/06/23 Intake Note: Zeb is a 68 year old male who presents today for a repeat injection for his right knee, last injection was on 11/06/23. Patient reports his last injection gave him 2 months and a half of relief. He mentions that he might think about getting gel injections if this cortisone doesnt work. Allergies No Known Allergies [No Known Allergies*] Allergy (Verified 02/13/24 09:14) [facility] right knee injection, last inj 11/06/23: Details: 68-year-old male who presents in the office today for a follow-up of right knee osteoarthritis. I last saw the patient in the office on 11/06/23 when he received a cortisone injection in the right knee. ? ?? While in the office today, the patient reports his last injection gave him two months and a half of relief. He is interested in discussing injection options today if another cortisone injection does work.? [facility] Medical History Primary osteoarthritis of right knee Chronic diastolic (congestive) heart failure Hypertension Sleep apnea Paroxysmal atrial fibrillation Family History Mother No problems noted. Father No problems noted. Social History Alcohol intake: current Alcohol intake frequency: a few times a week Alcohol type: wine Patient Tobacco Use Status: Current everyday Tobacco user Cigarettes Per Day: 8 Years Smoked: 50 Current occupational status: retired Current occupation: Right Handed Review of Systems Const All systems reviewed & are unremarkable except as noted in HPI and below Physical Exam Const General: cooperative, healthy appearing and no acute distress Resp Effort & Inspection: normal respiratory effort and able to speak in complete sentences Cardio Rate: regular rate Peripheral pulses: Peripheral pulses 2+ throughout GI Palpation (GI): Soft to palpation Skin Lesions: no lesions Rashes: no rashes Extrem Other: Right knee: Normal to inspection. No ecchymosis, redness or joint effusion. Patient is able to demonstrate full knee flexion extension. Crepitus felt with knee range of motion. Negative Lanie. NVI. Office Procedures Joint Injection/Aspiration Joint Injection/Aspiration Primary Site: right knee Prep: site was prepped using aseptic technique, ethochloride spray was applied and injection warnings given Injected: 80 mg of, DepoMedrol, with 8 mL of (2% plain lido ) and in the joint Approach Used: anterolateral Procedure: The patient tolerated the procedure well, but had some pain with the injection and there was some relief with the local anesthesia Coding - Large joint Procedure code (CPT) selection complete Assessment & Plan Assessment & Plan (1) Primary osteoarthritis of right knee: Code(s): M17.11 - Unilateral primary osteoarthritis, right knee Category: Medical Plan Mr. Mcdonald is a 68-year-old male who presents in the office today for a follow-up of right knee osteoarthritis. I last saw the patient in the office on 11/06/23 when he received a cortisone injection in the right knee. ? ?? While in the office today, the patient reports his last injection gave him two months and a half of relief. He is interested in discussing injection options today if another cortisone injection does work.? ?? The patient was offered a cortisone injection in the right knee with 80 mg of DepoMedrol. The patient was explained the risk, benefits, and alternatives to receiving this injection. After receiving consent for the injection, the patient had the procedure done while in the office today. The patient tolerated the procedure well with no complications.? ? Follow-up will be PRN, or sooner if needed.?? Patient Instructions: Scribed by Marcia Medina medical research scientist, for Marta Murray PA-C on 02/13/2024 at 9:12 am, EST.? Coding Level of Care Code Est Pt Level 3 (91665) Complex EM visit Add On G2211 Diagnoses Primary osteoarthritis of right knee M17.11 CPT Codes Coding - Large joint: 23513 - Large joint ([id number])
== END 2024-02-13 09:30 | disposition home or self-care (01) ==
PROVIDERS: PCP Internal Medicine; Visit Provider Physician Assistant
DX: M17.11 Unilateral primary osteoarthritis, right knee (principal)
CPT/HCPCS: 20610; 99213

== ENCOUNTER → 2024-02-13 09:05 | Outpatient (BNVA) | payer MEDICARE, MEDICAID, SELFPAY | PROVIDERS: PCP Internal Medicine; Visit Provider Physician Assistant | DX: M17.11 Unilateral primary osteoarthritis, right knee (principal) | CPT/HCPCS: 20610; 99212; J1010 ==

== ENCOUNTER 2024-05-14 09:04 | Outpatient (AMB) | payer MEDICARE, MEDICAID, SELFPAY ==
--- NOTE | 2024-05-14 09:08 | MHC.OFFVIS ---
Intake Visit Reasons: right knee injection, last inj 02/13/24 Intake Note: Zeb is a 68 year old male who presents to the office today for a right knee injection, last injection was 02/13/24. Pt states it gave him relief and would like to repeat. Allergies No Known Allergies [No Known Allergies*] Allergy (Verified 05/14/24 09:10) HPI HPI right knee injection, last inj 02/13/24: Details: 68-year-old male who presents in the office today for a follow-up of right knee injection. I last saw the patient in the office on 02/13/24, when he was offered a cortisone injection in the right knee. While in the office today, the patient reports ongoing right knee pain. He mentions that his last cortisone injection provided him relief. He is interested in having a repeat injection today. [facility] Medical History Primary osteoarthritis of right knee Chronic diastolic (congestive) heart failure Hypertension Sleep apnea Paroxysmal atrial fibrillation Family History Mother No problems noted. Father No problems noted. Social History Alcohol intake: current Alcohol intake frequency: a few times a week Alcohol type: wine Patient Tobacco Use Status: Current everyday Tobacco user Cigarettes Per Day: 8 Years Smoked: 50 Current occupational status: retired Current occupation: Right Handed Review of Systems Const All systems reviewed & are unremarkable except as noted in HPI and below Physical Exam Const General: cooperative, healthy appearing and no acute distress Resp Effort & Inspection: normal respiratory effort and able to speak in complete sentences Cardio Rate: regular rate Peripheral pulses: Peripheral pulses 2+ throughout GI Palpation (GI): Soft to palpation Skin Lesions: no lesions Rashes: no rashes Extrem Other: Right knee: Normal to inspection. No ecchymosis, redness or joint effusion. Patient is able to demonstrate full knee flexion extension. Crepitus felt with knee range of motion. Negative Lanie. NVI. Office Procedures AMB Joint Injection/Aspiration Joint Injection/Aspiration Primary Site: right knee Prep: site was prepped using aseptic technique, ethochloride spray was applied and injection warnings given Injected: 80 mg of, DepoMedrol, with 8 mL of (2% plain lido ) and in the joint Approach Used: anterolateral Procedure: The patient tolerated the procedure well, but had some pain with the injection and there was some relief with the local anesthesia Coding 61942 - Large joint Procedure code (CPT) selection complete Assessment & Plan Assessment & Plan (1) Primary osteoarthritis of right knee: Code(s): M17.11 - Unilateral primary osteoarthritis, right knee Category: Medical Plan Mr. Mcdonald is a 68-year-old male who presents in the office today for a follow-up of right knee injection. I last saw the patient in the office on 02/13/24, when he was offered a cortisone injection in the right knee. While in the office today, the patient reports ongoing right knee pain. He mentions that his last cortisone injection provided him relief. He is interested in having a repeat injection today. The patient was offered a cortisone injection in the right knee with 80 mg of DepoMedrol. The patient was explained the risks, benefits, and alternatives to receiving this injection. After receiving consent for the injection, the patient had the procedure done while in the office today. The patient tolerated the procedure well with no complications. Follow-up will be PRN, or sooner if needed. Patient Instructions: Scribed by Roseline Gold manager medical device, for Marta Murray PA-C on 05/14/24 at 10:15 am EST. Coding Level of Care Code Est Pt Level 3 (57910) Diagnoses Primary osteoarthritis of right knee M17.11 CPT Codes Coding - 85221 Large joint: 51464 - Large joint ([id number])
== END 2024-05-14 09:17 | disposition home or self-care (01) ==
PROVIDERS: PCP Internal Medicine; Visit Provider Physician Assistant
DX: M17.11 Unilateral primary osteoarthritis, right knee (principal)
CPT/HCPCS: 20610; 99213

== ENCOUNTER → 2024-05-14 10:29 | Outpatient (REF) | payer MEDICARE, MEDICAID, SELFPAY ==
--- NOTE | 2024-05-14 10:31 | CA_ITS ---
Transthoracic Echocardiogram Patient (Last, First, Middle): Zeb Mcdonald, Gender: Male Date of : 1955 Age: 68 Procedure Date: 05/14/2024 Procedure Type: Transthoracic Echocardiogram Location: OP Height: 187.96 cm Weight: 113.4 kg BSA: 2.39 m2 Heart Rate: 61 bpm BP: 124 / 78 mmHg Salt Washer: JERICHO Referring MD: Raheel York MD Symptoms: I71.20 - Thoracic aortic aneurysm, without rupture, unspecified Study Quality: Fair but adequate ECG Rhythm: Sinus Conclusions: - The left ventricular systolic function is normal. The visually estimated ejection fraction is between 55-60%. - No obvious valvular pathology seen on this study. - There is mild dilatation of the sinuses of Valsalva measuring 4.10 cm and mild dilatation of the ascending aorta measuring 4.10 cm. Findings Procedure Information The quality of the study was technically difficult. The study quality is limited by patients body habitus. Left Ventricle Normal left ventricular cavity size. The left ventricular systolic function is normal. The visually estimated ejection fraction is between 55-60%. There is no evidence of regional wall motion abnormalities. Diastolic function is normal for age. There is mild septal asymmetric hypertrophy. Right Ventricle Normal right ventricular cavity size and systolic function. Atria Both atria are normal in size. Aortic Valve There is a normal trileaflet aortic valve. There is mild calcification of the aortic valve. There is no aortic valve stenosis. There is no aortic valve regurgitation. Mitral Valve The mitral valve appears normal. There is no mitral valve regurgitation. There is no mitral valve stenosis. Pulmonic Valve The pulmonic valve is likely normal. Tricuspid Valve There is trace tricuspid valve regurgitation. There is no evidence of pulmonary hypertension. Great Vessels There is mild dilatation of the sinuses of Valsalva measuring 4.10 cm and mild dilatation of the ascending aorta measuring 4.10 cm. Small plaque is seen in the sino tubular ridge. Venous The inferior vena cava is mildly dilated and collapses less than 50% with inspiration. Pericardium/Pleural There is no evidence of pericardial effusion. Prior Study Comparison No significant change compared to prior study dated: 06/07/2023. Recommendations, Care & Conclusions No obvious valvular pathology seen on this study. Measurements 2D Linear Measurements IVSd: 1.12 0.6-0.9/0.6-1.0 cm LVIDd: 4.83 3.9-5.3/4.2-5.9 cm LVIDd Index: 2.02 2.4-3.2/2.2-3.1 cm/m2 LVIDs: 2.87 2.0-3.6 cm LA Diam: 3.50 2.7-3.8/3.0-4.0 cm LAIDs Index: 1.46 1.5-2.3 cm/m2 LVOT Diam: 2.50 3.0+(-)1.3 cm 2D Systolic Function EF 4C: 49.10 >55% EF 2C: 56.90 >55% EF BiP: 53.00 >55% Mitral Valve MV Pk E: 0.51 MV PK A: 0.58 MV Decel Time: 261.00 E/A: 0.90 E'Lateral: 5.77 E'Medial: 5.44 E/E' Med: 9.30 E/E' Lat: 8.80 PHT: 76.00 MVA PHT: 2.89 Decel Lassen: 1.94 Aortic Valve AoV Pk Watson: 1.06 AoV Pk Grad: 4.00 NANCY: 4.30 LVOT LVOT Pk Watson: 0.91 LVOT Mn Watson: 0.66 LVOT VTI: 0.20 LVOT Pk Grad: 3.00 LVOT Mn Grad: 2.00 LVOT Diam: 2.50 LVOT Area: 4.91 Diastolic Function MV Pk E: 0.51 MV Pk A: 0.58 E/A: 0.90 E'Medial: 5.44 E/E' Med: 9.30 E' Laterial: 5.77 E/E' Lat: 8.80 Right Ventricle TAPSE (mm): 22.80 TVS' Watson: 14.60 Tricuspid Valve TR Pk Watson: 2.44 TR Pk Grad: 24.00 RA Press: 3.00 RVSP: 27.00 Great Vessels Aorta Sinus of Valsalva: 4.10 2.0-3.5 cm Ao Asc: 4.10 2.1-3.4 cm Pulmonary Valve PV Pk Watson: 0.92 Peak PV Grad: 3.00 Updated in Other Vendor System with Status of Final Liang Donnelly MD electronically signed on 05/16/2024 12:29:43 PM with status of Final
== END ==
LOC: HO.CARD 10:29
PROVIDERS: PCP Internal Medicine; Visit Provider Internal Medicine Cardiovascular Disease
DX: I71.20 Thoracic aortic aneurysm, without rupture, unspecified (principal)
CPT/HCPCS: 93306

== ENCOUNTER → 2024-05-14 10:31 | Outpatient (BNV) | payer MEDICARE, MEDICAID, SELFPAY | PROVIDERS: PCP Internal Medicine; Visit Provider Internal Medicine | DX: I42.2 Other hypertrophic cardiomyopathy (principal); I35.8 Other nonrheumatic aortic valve disorders; I71.21 Aneurysm of the ascending aorta, without rupture | CPT/HCPCS: 93306 ==

== ENCOUNTER 2024-06-06 09:50 | Outpatient (AMB) | payer MEDICARE, MEDICAID, SELFPAY ==
[2024-06-06 09:54] VITALS: BP 120/80; PULSE 66; BMI 32.6
--- NOTE | 2024-06-06 09:54 | MHC.OFFVIS ---
Vital Signs 06/06/24 09:54 Height 6 ft 1 in Weight 246 lb 14.684 oz BMI 32.6 BP 120/80 Blood Pressure Location Lt brachial Position Sitting Pulse 66 Intake Visit Reasons: 1 year after echo Intake Note: 1 year follow-up with ekg after echo feeling good Clinical Social Work Aide Required: No Allergies No Known Allergies [No Known Allergies*] Allergy (Verified 05/14/24 09:10) Medication List - Last Reconciled 06/06/24 by Raheel York MD atorvastatin 10 mg PO DAILY ibuprofen mg PO metoprolol tartrate 50 mg PO BID 90 days rivaroxaban (Xarelto) 20 mg PO DAILY spironolactone 25 mg PO DAILY tramadol 50 mg PO BID PRN HPI Comments Details: Zeb comes for follow-up. He has been doing very well from cardiac perspective. He is accompanied by his . Has cut down his smoking significantly. He denies any symptoms of chest pain. No symptoms of progressive irregular heartbeat or palpitations or prolonged palpitations. Denies any heart failure symptoms. No orthopnea, PND, leg edema. Taking all his medications. Blood pressure is well optimized. No bleeding issues or neurologic events. COUNT INCLUDES THE [facility] Medical History Primary osteoarthritis of right knee Chronic diastolic (congestive) heart failure Hypertension Sleep apnea Paroxysmal atrial fibrillation Family History Mother No problems noted. Father No problems noted. Social History Alcohol intake: current Alcohol intake frequency: a few times a week Alcohol type: wine Patient Tobacco Use Status: Current everyday Tobacco user Cigarettes Per Day: 8 Years Smoked: 50 Current occupational status: retired Current occupation: Right Handed Review of Systems Const Denies chills, Denies fatigue, Denies fever(s), Denies frequent falls, Denies weakness, Denies weight gain and Denies weight loss ENT Denies dizziness Card Denies chest pain, Denies leg edema, Denies lightheadedness, Denies palpitations, Denies dyspnea, Denies dyspnea on exertion, Denies orthopnea and Denies other (loss of consciousness) Resp Denies cough, Denies dyspnea and Denies dyspnea on exertion GI Denies hematochezia and Denies change in stool character Musc Denies abnormal gait, Denies muscle weakness, Denies numbness, Denies radiating pain into limb and Denies tingling Neuro Denies abnormal gait, Denies dizziness, Denies frequent falls, Denies numbness, Denies tingling and Denies weakness Endo Denies fatigue and Denies palpitations Physical Exam Vital Signs: Last Vital Signs Pulse 66 06/06/24 09:54 BP 120/80 06/06/24 09:54 BMI result Body Mass Index 32.6 Const General: cooperative, comfortable, alert and awake Nutritional Appearance: obese Orientation/consciousness: patient oriented x3 Limitations: no limitations HEENT Head: Yes normocephalic and Yes atraumatic Neck Neck: Yes trachea midline, Yes supple and Yes no JVD Chest Chest palpation & inspection: normal inspection of the chest Resp Effort & Inspection: normal respiratory effort Auscultation: clear to auscultation bilaterally Cardio Jugular venous distension: no JVD Palpation: normal PMI Rate: regular rate Rhythm: regular rhythm Heart sounds: S1 normal heart sound present, S2 normal heart sound present and Other heart sounds present (Soft S4) GI Auscultation: normal bowel sounds Skin General skin exam: no rashes or lesions noted Neuro General: patient oriented x3 and no focal motor deficits Extrem General: Yes no clubbing, cyanosis or edema Psych Appearance: grossly normal Office Procedures EKG Details: EKG shows normal sinus rhythm with low-voltage QRS with poor R-wave progression most likely lead placement body habitus. 85200-[id number], Complete Assessment & Plan Assessment & Plan (1) Chronic diastolic (congestive) heart failure: Code(s): I50.32 - Chronic diastolic (congestive) heart failure Category: Medical Plan: Chronic heart failure preserved ejection fraction clinically euvolemic and well compensated has done well with rhythm control approach as well as control of his blood pressure. He has increase his salt intake and I have advised to kind of cut back on his salt intake. Also advised to cut back on his water intake given his low sodium levels. Continue current spironolactone therapy for neurohormonal modulation. Does not require loop diuretic therapy. There was no clear increased wall thickness on echocardiogram that would suggest infiltrative disorder. Will continue monitor for the same. (2) Paroxysmal atrial fibrillation: Code(s): I48.0 - Paroxysmal atrial fibrillation Category: Medical Plan: Paroxysmal atrial fibrillation has maintain rhythm since cardioversion. Has done well with rhythm control approach will continue pursue rhythm control approach. No indication for antiarrhythmic drug therapy at this point time. Avoidance of stimulants was discussed. Advised to call me with new symptoms. Continue full oral anticoagulation, currently on Xarelto 20 mg daily. Semi annual renal function test should be pursued. (3) Thoracic aortic aneurysm: Code(s): I71.20 - Thoracic aortic aneurysm, without rupture, unspecified Category: Medical Plan: Mild thoracic aortic aneurysm doing well. Clinically no interventions from surgical perspective required. Continue aggressive vascular risk factor modification. Continue aggressive blood pressure control. Advised to avoid sudden strenuous isometric exercise. Will follow up in the clinic in 1 year's time after an echocardiogram. Thank you for allowing me to partake in his care Orders: Orders CA echo transthoracic complete 1 Year I71.20 - Thoracic aortic aneurysm, without rupture, unspecified Coding Level of Care Code Est Pt Level 4 (29024) Complex EM visit Add On G2211 Diagnoses Chronic diastolic (congestive) heart failure I50.32 Paroxysmal atrial fibrillation I48.0 Thoracic aortic aneurysm I71.20 CPT Codes EKG - CPT: 38324-[id number], Complete ([id number])
== END 2024-06-06 10:44 | disposition home or self-care (01) ==
PROVIDERS: PCP Internal Medicine; Visit Provider Internal Medicine Cardiovascular Disease
DX: I50.32 Chronic diastolic (congestive) heart failure (principal); I48.0 Paroxysmal atrial fibrillation; I71.20 Thoracic aortic aneurysm, without rupture, unspecified
CPT/HCPCS: 93010; 99214; G2211

== ENCOUNTER → 2024-06-06 09:50 | Outpatient (BNVA) | payer MEDICARE, MEDICAID, SELFPAY | PROVIDERS: PCP Internal Medicine; Visit Provider Internal Medicine Cardiovascular Disease | DX: I50.32 Chronic diastolic (congestive) heart failure (principal); I48.0 Paroxysmal atrial fibrillation; I71.20 Thoracic aortic aneurysm, without rupture, unspecified | CPT/HCPCS: 93005; 99212 ==

== ENCOUNTER 2024-07-16 09:08 | Outpatient (REF) | payer MEDICARE, MEDICAID, SELFPAY ==
--- OUTSIDE RECORDS SUMMARY | 2024-07-16 09:44 | XMS_ITS | Encounter Summary ---
Author Organization [employer] Address [address] [facility] 7 [place] [address] Care Team Providers Care Inspector Barrel Name Role Phone Tremaine Renee MD Primary Care Prov ider Reason for Visit * Reason Onset Date Comments Med Refill 07/29/2022 Encounter Details Date Type Department Care Team ([facility] st Contact Info) Description 07/29/2022 Telephone [facility] MEDICINE [address] [place] [address] Tremaine Renee MD [address] [place] [address] Med Refill Social History Tobacco Use Types Packs/Day Years Used Date Smoking Tobacco: Every Day Cigarettes 0.5 40 Smokeless Tobacco: Never Alcohol Use Standard Drinks/Week Comments Yes 0 (1 standard drink = 0.6 oz pur e alcohol) occasional Sex and Gender Information Value Date Recorded Sex Assigned at Male 03/28/2022 10:36 AM EDT Legal Sex Male 10:36 AM EDT Gender Identity Male 03/28/2022 10:36 AM EDT Sexual Orientation Straight 03/28/2022 10 :36 AM EDT COVID-19 Exposure Response Date Recorded In the last 10 days, have yo u been in contact with someone who was confirmed or suspected to have Coronavirus/COVID-19? No / Unsure 07/20/2022 9:26 AM EST documented as of this encounter Miscellaneous Notes * Telephone Encounter - Dominic Trejo - 07/29/2022 3:57 PM EST Tc from pt requesting med refill Tramadol 50 mg documented in this encounter Plan of Treatment Upcoming Encounters Date Type Department Care Team (Late st Contact Info) Description 07/23/2024 9:45 AM EST Telemedicine [facility] MED & PEDS [address] [place] [address] Tremaine Renee MD [address] [place] [address] 08/22/2024 9:00 AM EDT Clinical Support [facility] MED & PEDS [address] [place] [address] Deena Prince, SHI [address] [place] [address] documented as of this encounter Visit Diagnoses Not on filedocumented in this encounter Care Teams Inspector Barrel Relationship Specialty Start Date End Date Tremaine Renee MD [address] [place] [address] PCP - General Internal Medicine 05/20/19 documented as of this encounter
--- OUTSIDE RECORDS SUMMARY | 2024-07-16 09:45 | XMS_ITS | Encounter Summary ---
Author Organization [employer] Address [address] [facility] 7 [place] [address] Care Team Providers Care Clinical Program Director Name Role Phone Tremaine Renee MD Primary Care Prov ider Reason for Visit * Reason Onset Date Comments Med Refill 06/13/2024 Encounter Details Date Type Department Care Team ([facility] st Contact Info) Description 06/13/2024 Refill [facility] MED & PEDS [address] [place] [address] Tremaine Renee MD [address] [place] [address] Primary osteoarthritis of right knee Social History Tobacco Use Types Packs/Day Years Used Date Smoking Tobacco: Every Day Cigarettes 0.5 40 Smokeless Tobacco: Never Alcohol Use Standard Drinks/Week Comments Yes 0 (1 standard drink = 0.6 oz pur e alcohol) occasional Depression Answer Date Recorded Patient Health Questionnaire-9 Score 0 12/26/2022 Housing Stability Answer Date Recorded What is your housing situation today? I have austin rinaldi 03/13/[address] you li ve. Do you have problems with any of the following? None of the above 03/13/2023 Food Insecurity Answer Date Recorded Within the past 12 months, y ou worried that your food would run out before you got money to buy more: Never True 03/13/2023 Within the past 12 months,th e food you bought just didn't last and you didn't have enough money to get more: Never True Transportation Answer Date Recorded In the past 12 months, has l ack of transportation kept you from medical appts, meetings, work or from getting things needed for daily living? No 03/13/2023 Utilities Answer Date Recorded In the past 12 months, has t he electric, gas, oil or water company threatened to shut off services in your home? No 03/13/2023 Depression Answer Date Recorded Patient Health Questionnaire-2 Score 0 12/26/2022 Sex and Gender Information Value Date Recorded Sex Assigned at Male 03/28/2022 10:36 AM EDT Legal Sex Male 10:36 AM EDT Gender Identity Male 03/28/2022 10:36 AM EDT Sexual Orientation Straight 03/28/2022 10 :36 AM EDT documented as of this encounter Plan of Treatment Upcoming Encounters Date Type Department Care Team (Late st Contact Info) Description 07/23/2024 9:45 AM EST Telemedicine [facility] MED & PEDS [address] [place] [address] Tremaine Renee MD [address] [place] [address] 08/22/2024 9:00 AM EDT Clinical Support [facility] MED & PEDS [address] [place] [address] Deena Prince, SHI [address] [place] [address] documented as of this encounter Visit Diagnoses Diagnosis Primary osteoarthritis of right knee documented in this encounter Additional Health Concerns Assessment Noted Time PHQ-9 Depression Total Score: 0 12/27/19 23 9:36 AM EDT documented as of this encounter Care Teams Clinical Program Director Relationship Specialty Start Date End Date Tremaine Renee MD [address] [place] [address] PCP - General Internal Medicine 05/20/19 documented as of this encounter
--- OUTSIDE RECORDS SUMMARY | 2024-07-16 09:45 | XMS_ITS | Encounter Summary ---
Author Organization [employer] Address [address] [facility] 7 [place] [address] Care Team Providers Care Continuous Washer Operator Name Role Phone Tremaine Renee MD Primary Care Prov ider Reason for Visit * Reason Onset Date Comments Med Refill 07/03/2024 Encounter Details Date Type Department Care Team ([facility] st Contact Info) Description 07/03/2024 Refill [facility] MED & PEDS [address] [place], [place] [phone] Tremaine Renee MD [address] [place] [address] Permanent atrial fibrillation (CMS/HCC) Social History Tobacco Use Types Packs/Day Years [...] Info) Description 07/23/2024 9:45 AM EST Telemedicine [facility] MED & PEDS [address] [place] [address] Tremaine Renee MD [address] [place] [address] 08/22/2024 9:00 AM EDT Clinical Support [facility] MED & PEDS [address] [place] [address] Deena Prince, SHI [address] [place] [address] documented as of this encounter Visit Diagnoses Diagnosis Permanent atrial fibrillation (CMS/HCC) Atrial fibrillation documented in this encounter Additional Health Concerns Assessment Noted Time PHQ-9 Depression Total Score: 0 12/27/19 23 9:36 AM EDT documented as of this encounter Care Teams Continuous Washer Operator Relationship Specialty Start Date End Date Tremaine Renee MD [address] [place] [address] PCP - General Internal Medicine 05/20/19 documented as of this encounter
--- OUTSIDE RECORDS SUMMARY | 2024-07-16 09:45 | XMS_ITS | Encounter Summary ---
Author Organization [employer] Address [address] [facility] [address]t [place] [address] Care Team Providers Care Textile Knitter Name Role Phone Tremaine Renee MD Primary Care Prov ider Reason for Visit * Reason Onset Date Comments medical clearance 11/17/2023 Encounter Details Date Type Department Care Team ([facility] st Contact Info) Description 11/17/2023 Telephone [facility] ADULT DENTAL [address] [place], [place] [phone] Manjit Horvath DDS [address] [place] [address] medical clearance Social History Tobacco Use Types Packs/Day Years Used Date Smoking Tobacco: Every Day Cigarettes 0.5 40 Smokeless Tobacco: Never Alcohol Use Standard Drinks/Week Comments Yes 0 (1 standard drink = 0.6 oz pur e alcohol) occasional Depression Answer Date Recorded Patient Health Questionnaire-9 Score 0 12/26/2022 Housing Stability Answer Date Recorded What is your housing situation today? I have austin rinadli 03/13/[address] you li [...] AM EDT documented as of this encounter Miscellaneous Notes * Telephone Encounter - Opal Graham - 11/17/2023 8:47 AM EDT Patient states that he has not been scheduled. He understands that medical clearance was sent to provider. However, we have not received back from provider. When I informed the patient, he stated that PCP is in the same building. Patient informed that although it is in the same building, the PCP brand s have to fill out and return to us. Can this be resent? Or is it in office and not scanned in? documented in this encounter Plan of Treatment Upcoming Encounters Date Type Department Care Team (Late st Contact Info) Description 07/23/2024 9:45 AM EST Telemedicine [facility] MED & PEDS [address] [place] [address] Tremaine Renee MD [address] [place] [address] 08/22/2024 9:00 AM EDT Clinical Support [facility] MED & PEDS [address] [place] [address] Deena Prince RN [address] [place] [address] documented as of this encounter Visit Diagnoses Not on filedocumented in this encounter Additional Health Concerns Assessment Noted Time PHQ-9 Depression Total Score: 0 12/27/19 9:36 AM EDT documented as of this encounter Care Teams Textile Knitter Relationship Specialty Start Date End Date DohertyTremaine Hawkins MD [address] [place] [address] PCP - General Internal Medicine 05/20/19 documented as of this encounter
--- OUTSIDE RECORDS SUMMARY | 2024-07-16 09:45 | XMS_ITS | Encounter Summary ---
Author Organization [employer] Address [address] [facility] 7t [place] [address] Care Team Providers Care Dining Manager Name Role Phone Tremaine Renee MD Primary Care Prov ider Reason for Visit * Reason Comments Med Refill Encounter Details Date Type Department Care Team ([facility] st Contact Info) Description 06/21/2024 Refill [facility] MED & PEDS [address] [place], [place] [phone] Tremaine Renee MD [address] [place] [address] Essential hypertension Social History Tobacco Use Types Packs/Day Years [...] Description 07/23/2024 9:45 AM EST Telemedicine [facility] MED & PEDS [address] [place] [address] Tremaine Renee MD [address] [place] [address] 08/22/2024 9:00 AM EDT Clinical Support [facility] MED & PEDS [address] [place] [address] Deena Prince RN [address] [place] [address] documented as of this encounter Visit Diagnoses Diagnosis Essential hypertension Unspecified essential hypertension documented in this encounter Additional Health Concerns Assessment Noted Time PHQ-9 Depression Total Score: 0 12/27/19 23 9:36 AM EDT documented as of this encounter Care Teams Dining Manager Relationship Specialty Start Date End Date Tremaine Renee MD [address] [place] [address] PCP - General Internal Medicine 05/20/19 documented as of this encounter
--- OUTSIDE RECORDS SUMMARY | 2024-07-16 09:45 | XMS_ITS | Encounter Summary ---
Author Organization [employer] Address [address] [facility] [address]t [place] [address] Care Team Providers Care Grease Rack Worker Name Role Phone Tremaine Renee MD Primary Care Prov ider Reason for Visit * Reason Comments Med Refill Encounter Details Date Type Department Care Team (Late st Contact Info) Description 07/03/2023 Refill [facility] MEDICINE [address] [place] [address] Tremaine Renee MD [address] [place], [place] [phone] Primary osteoarthritis of right knee Social History [...] Info) Description 07/23/2024 9:45 AM EST Telemedicine [facility] MED & PEDS [address] [place] [address] Tremaine Renee MD [address] [place] [address] 08/22/2024 9:00 AM EDT Clinical Support [facility] MED & PEDS [address] [place] [address] Deena Prince RN [address] [place] [address] documented as of this encounter Visit Diagnoses Diagnosis Primary osteoarthritis of right knee documented in this encounter Additional Health Concerns Assessment Noted Time PHQ-9 Depression Total Score: 0 12/27/19 23 9:36 AM EDT documented as of this encounter Care Teams Grease Rack Worker Relationship Specialty Start Date End Date Tremaine Renee MD [address] [place] [address] PCP - General Internal Medicine 05/20/19 documented as of this encounter
--- OUTSIDE RECORDS SUMMARY | 2024-07-16 09:45 | XMS_ITS | Encounter Summary ---
Author Organization [employer] Address [address] [facility] 7 [place] [address] Care Team Providers Care Rope Maker Name Role Phone Tremaine Renee MD Primary Care Prov ider Reason for Visit * Reason Onset Date Comments Med Refill 04/11/2023 Encounter Details Date Type Department Care Team ([facility] st Contact Info) Description 04/11/2023 Telephone [facility] MEDICINE [address] [place] [address] Tremaine Renee MD [address] [place] [address] Med Refill Social History Tobacco Use Types [...] encounter Miscellaneous Notes * Telephone Encounter - Amado Chou - 04/11/2023 8:30 AM EST Tc from patient requesting medication refill for traMADol (Ultram) 50 MG tablet. documented in this encounter Plan of Treatment Upcoming Encounters Date Type Department Care Team (Late st Contact Info) Description 07/23/2024 9:45 AM EST Telemedicine [facility] MED & PEDS [address] [place] [address] Tremaine Renee MD [address] [place] [address] 08/22/2024 9:00 AM EDT Clinical Support [facility] MED & PEDS [address] [place] [address] Deena Prince, SHI [address] [place] [address] documented as of this encounter Visit Diagnoses Not on filedocumented in this encounter Additional Health Concerns Assessment Noted Time PHQ-9 Depression Total Score: 0 12/27/19 9:36 AM EDT documented as of this encounter Care Teams Rope Maker Relationship Specialty Start Date End Date Tremaine Renee MD [address] [place] [address] PCP - General Internal Medicine 05/20/19 documented as of this encounter
--- OUTSIDE RECORDS SUMMARY | 2024-07-16 09:45 | XMS_ITS | Encounter Summary ---
Author Organization [employer] Address 75 [facility] 7 [place] [address] Care Team Providers Care Licensed Mortician Name Role Phone Tremaine Renee MD Primary Care Prov ider Reason for Visit * Reason Onset Date Comments Med Refill 02/02/2024 Encounter Details Date Type Department Care Team (Late st Contact Info) Description 02/02/2024 Telephone [facility] MEDICINE [address] [place] [address] Tremaine Renee MD [address] [place] [address] Med Refill Social History Tobacco Use Types [...] * Telephone Encounter - Amado Chou - 02/02/2024 8:19 AM EDT TC from pt requesting medication refill. Medications needing refill : traMADol (Ultram) 50 MG tablet To be sent to: [facility]/pharmacy #[id number] - [place], [place] - [address] documented in this encounter Plan of Treatment Upcoming Encounters Date Type Department Care Team (Late st Contact Info) Description 07/23/2024 9:45 AM EST Telemedicine [facility] MED & PEDS [address] [place] [address] Tremaine Renee MD [address] [place] [address] 08/22/2024 9:00 AM EDT Clinical Support [facility] MED & PEDS [address] [place] [address] Deena Prince RN [address] [place] [address] documented as of this encounter Visit Diagnoses Not on filedocumented in this encounter Additional Health Concerns Assessment Noted Time PHQ-9 Depression Total Score: 0 12/27/19 23 9:36 AM EDT documented as of this encounter Care Teams Licensed Mortician Relationship Specialty Start Date End Date Tremaine Renee MD [address] [place] [address] PCP - General Internal Medicine 05/20/19 documented as of this encounter
--- OUTSIDE RECORDS SUMMARY | 2024-07-16 09:45 | XMS_ITS | Encounter Summary ---
Author Organization [employer] Address 75 [facility] 7 [place] [address] Care Team Providers Care Torch Brazer Name Role Phone Trmeaine Renee MD Primary Care Prov ider Reason for Visit * Reason Onset Date Comments Paperwork/Forms 11/23/2023 Encounter Details Date Type Department Care Team ([facility] st Contact Info) Description 11/23/2023 Telephone [facility] CHC MED & PEDS [address] [place], [place] [phone] Tremaine Renee MD [address] [place] [address] Paperwork/Forms Social History Tobacco Use Types Packs/Day Years [...] encounter Miscellaneous Notes * Telephone Encounter - Olivia Connell - 11/23/2023 11:14 AM EDT Tc from pt requesting status on medical clearance form sent by [facility] dental. Please contact pt at [phone] documented in this encounter Plan of Treatment Upcoming Encounters Date Type Department Care Team (Late st Contact Info) Description 07/23/2024 9:45 AM EST Telemedicine [facility] MED & PEDS [address] [place] [address] Tremaine Renee MD [address] [place] [address] 08/22/2024 9:00 AM EDT Clinical Support [facility] MED & PEDS [address] [place] [address] Deena Prince, SHI [address] [place] [address] documented as of this encounter Visit Diagnoses Not on filedocumented in this encounter Additional Health Concerns Assessment Noted Time PHQ-9 Depression Total Score: 0 12/27/19 23 9:36 AM EDT documented as of this encounter Care Teams Torch Brazer Relationship Specialty Start Date End Date Tremaine Renee MD [address] [place] [address] PCP - General Internal Medicine 05/20/19 documented as of this encounter
--- OUTSIDE RECORDS SUMMARY | 2024-07-16 09:45 | XMS_ITS | Encounter Summary ---
Author Organization [employer] Address 75 [facility] 7t [place] [address] Care Team Providers Care Brush Machine Setter Name Role Phone Tremaine Renee MD Primary Care Prov ider Reason for Visit * Reason Onset Date Comments Med Refill 07/11/2024 Encounter Details Date Type Department Care Team (Late st Contact Info) Description 07/11/2024 Refill [facility] MEDICINE [address] [place] [address] Tremaine Renee MD [address] [place] [address] Primary osteoarthritis of right knee Social History [...] encounter Miscellaneous Notes * Telephone Encounter - Reshma Kamara - 07/11/2024 11:55 AM EST TC from pt requesting medication refill. Medications needing refill : traMADol (Ultram) 50 MG tablet To be sent to: [facility]/pharmacy #[id number] [facility], [place] - [address] documented in this encounter Plan of Treatment Upcoming Encounters Date Type Department Care Team (Late st Contact Info) Description 07/23/2024 9:45 AM EST Telemedicine [facility] MED & PEDS [address] [place] [address] Tremaine Renee MD [address] [place] [address] 08/22/2024 9:00 AM EDT Clinical Support [facility] MED & PEDS [address] [place] [address] Deena Prince RN [address] [place] [address] documented as of this encounter Visit Diagnoses Diagnosis Primary osteoarthritis of right knee documented in this encounter Additional Health Concerns Assessment Noted Time PHQ-9 Depression Total Score: 0 12/27/19 23 9:36 AM EDT documented as of this encounter Care Teams Brush Machine Setter Relationship Specialty Start Date End Date Tremaine Renee MD [address] [place] [address] PCP - General Internal Medicine 05/20/19 documented as of this encounter
--- OUTSIDE RECORDS SUMMARY | 2024-07-16 09:45 | XMS_ITS | Encounter Summary ---
Author Organization [employer] Address 75 [facility] 7 [place] [address] Care Team Providers Care Hydroelectric Component Machinist Name Role Phone Tremaine Renee MD Primary Care Prov ider Reason for Visit * Reason Onset Date Comments Med Refill 07/08/2024 Encounter Details Date Type Department Care Team ([facility] st Contact Info) Description 07/08/2024 Refill [facility] CHC MED & PEDS [address] [place], [place] [phone] Tremaine Renee MD [address] [place] [address] Permanent atrial fibrillation (CMS/HCC) Social History Tobacco [...] Description 07/23/2024 9:45 AM EST Telemedicine [facility] MED & PEDS [address] [place] [address] Tremaine Renee MD [address] [place] [address] 08/22/2024 9:00 AM EDT Clinical Support [facility] MED & PEDS [address] [place] [address] Deena Prince, SHI [address] [place] [address] documented as of this encounter Visit Diagnoses Diagnosis Permanent atrial fibrillation (CMS/HCC) Atrial fibrillation documented in this encounter Additional Health Concerns Assessment Noted Time PHQ-9 Depression Total Score: 0 12/27/19 23 9:36 AM EDT documented as of this encounter Care Teams Hydroelectric Component Machinist Relationship Specialty Start Date End Date Tremaine Renee MD [address] [place] [address] PCP - General Internal Medicine 05/20/19 documented as of this encounter
--- OUTSIDE RECORDS SUMMARY | 2024-07-16 09:45 | XMS_ITS | Encounter Summary ---
Author Organization [employer] Address 75 [facility] 7t [place] [address] Care Team Providers Care President Finance Company Name Role Phone Tremaine Renee MD Primary Care Prov ider Reason for Visit * Reason Comments Med Refill Encounter Details Date Type Department Care Team (Late st Contact Info) Description 06/03/2023 Refill [facility] MEDICINE [address] [place] [address] Tremaine Renee MD [address] [place], [place] [phone] Primary osteoarthritis of right knee Social History [...] Info) Description 07/23/2024 9:45 AM EST Telemedicine [facility] MED & PEDS [address] [place] [address] Tremaine Renee MD [address] [place] [address] 08/22/2024 9:00 AM EDT Clinical Support [facility] MED & PEDS [address] [place] [address] Deena Prince RN [address] [place] [address] documented as of this encounter Visit Diagnoses Diagnosis Primary osteoarthritis of right knee documented in this encounter Additional Health Concerns Assessment Noted Time PHQ-9 Depression Total Score: 0 12/27/19 23 9:36 AM EDT documented as of this encounter Care Teams President Finance Company Relationship Specialty Start Date End Date Tremaine Renee MD [address] [place] [address] PCP - General Internal Medicine 05/20/19 documented as of this encounter
--- OUTSIDE RECORDS SUMMARY | 2024-07-16 09:45 | XMS_ITS | Encounter Summary ---
Author Organization [employer] Address 75 [facility] 7 [place] [address] Care Team Providers Care Special Forces Engineer Sergeant Name Role Phone Tremaine Renee MD Primary Care Prov ider Reason for Visit * Reason Comments Med Refill Encounter Details Date Type Department Care Team ([facility] st Contact Info) Description 07/01/2024 Refill [facility] CHC MED & PEDS [address], [place] [phone] Tremaine Renee MD [address] [place] [address] Permanent atrial fibrillation (CMS/HCC) Social History Tobacco [...] Info) Description 07/23/2024 9:45 AM EST Telemedicine [facility] MED & PEDS [address] [place] [address] Tremaine Renee MD [address] [place] [address] 08/22/2024 9:00 AM EDT Clinical Support [facility] MED & PEDS [address] [place] [address] Deena Prince RN [address] [place] [address] documented as of this encounter Visit Diagnoses Diagnosis Permanent atrial fibrillation (CMS/HCC) Atrial fibrillation documented in this encounter Additional Health Concerns Assessment Noted Time PHQ-9 Depression Total Score: 0 12/27/19 23 9:36 AM EDT documented as of this encounter Care Teams Special Forces Engineer Sergeant Relationship Specialty Start Date End Date Tremaine Renee MD [address] [place] [address] PCP - General Internal Medicine 05/20/19 documented as of this encounter
--- OUTSIDE RECORDS SUMMARY | 2024-07-16 09:45 | XMS_ITS | Encounter Summary ---
Author Organization [employer] Address 75 [facility] 7 [place] [address] Care Team Providers Care Sub Arc Operator Name Role Phone Tremaine Renee MD Primary Care Prov ider Reason for Visit * Reason Onset Date Comments Med Refill 07/11/2024 Encounter Details Date Type Department Care Team ([facility] st Contact Info) Description 07/11/2024 Refill [facility] CHC MED & PEDS [address] [place] [address] Tremaine Renee MD [address] [place] [address] Primary osteoarthritis of right knee Social History [...] Description 07/23/2024 9:45 AM EST Telemedicine [facility] MED & PEDS [address] [place] [address] Tremaine Renee MD [address] [place] [address] 08/22/2024 9:00 AM EDT Clinical Support [facility] MED & PEDS [address] [place] [address] Deena Prince, SHI [address] [place] [address] documented as of this encounter Visit Diagnoses Diagnosis Primary osteoarthritis of right knee documented in this encounter Additional Health Concerns Assessment Noted Time PHQ-9 Depression Total Score: 0 12/27/19 23 9:36 AM EDT documented as of this encounter Care Teams Sub Arc Operator Relationship Specialty Start Date End Date Tremaine Renee MD [address] [place] [address] PCP - General Internal Medicine 05/20/19 documented as of this encounter
--- OUTSIDE RECORDS SUMMARY | 2024-07-16 09:45 | XMS_ITS | Encounter Summary ---
Author Organization [employer] Address 75 [facility] 7t [place] [address] Care Team Providers Care Motor Operator Name Role Phone Tremaine Renee MD Primary Care Prov ider Encounter Details Date Type Department Care Team ([facility] st Contact Info) Description 07/12/2024 Orders Only [facility] CHC MED & PEDS [address] [place], [place] [phone] Tremaine Renee MD [address] [place] [address] Social History Tobacco Use Types Packs/Day Years [...] Info) Description 07/23/2024 9:45 AM EST Telemedicine [facility] MED & PEDS [address] [place] [address] Tremaine Renee MD [address] [place] [address] 08/22/2024 9:00 AM EDT Clinical Support [facility] MED & PEDS [address] [place] [address] Deena Prince, SHI [address] [place] [address] documented as of this encounter Visit Diagnoses Not on filedocumented in this encounter Additional Health Concerns Assessment Noted Time PHQ-9 Depression Total Score: 0 12/27/19 23 9:36 AM EDT documented as of this encounter Care Teams Motor Operator Relationship Specialty Start Date End Date Tremaine Renee MD [address] [place] [address] PCP - General Internal Medicine 05/20/19 documented as of this encounter
--- OUTSIDE RECORDS SUMMARY | 2024-07-16 09:45 | XMS_ITS | Clinical Summary ---
Author Organization [employer] Address [address] [place] [address] 7t [place] [address] Care Team Providers Care Legislative Analyst Name Role Phone Tremaine Renee MD Primary Care Prov ider Allergies No known active allergies Medications naloxone (Narcan) 4 mg/0.1 mL nasal spray Administer 0.1 mL into affected nostril(s). 022 Active metoprolol tartrate (Lopressor) 50 MG tablet TAKE 1 TABLET BY MOUTH EVERY 12 HOURS. 180 tablet 3 024 Active albuterol 108 (90 Base) MCG/ACT inhaler INHALE 2 PUFFS EVERY 4 HOURS IF NEEDED FOR WHEEZING. 18 g 3 024 Active chlorhexidine (Peridex) 0.12 % solution Please use 15 ml orally as mouthwash twice daily. Swish for 60 seconds and spit. Do not rinse. 473 mL 1 024 Active Additional Information Patient not taking.Reported on 02/21/2024 azithromycin (Zithromax) 250 MG tablet Take 2 tabs orally on day 1, then 1 tab orally daily x 4 more days 6 tablet 024 Active atorvastatin (Lipitor) 10 MG tabletIndications :Mixed hyperlipidemia TAKE 1 TABLET BY MOUTH EVERY DAY IN THE MORNING 90 tablet 024 Active ibuprofen 400 MG tablet Take 1 tablet (400 mg) by mouth every 6 (six) hours if needed (pain or fever). 60 tablet 025 Active spironolactone (Aldactone) 25 MG tabletIndications :Essential hypertension TAKE 1 TABLET BY MOUTH EVERY DAY IN THE MORNING 90 tablet 1 025 Active rivaroxaban (Xarelto) 20 MG tabletIndications :Permanent atrial fibrillation (CMS/HCC) Take 1 tablet (20 mg) by mouth at bedtime. Take with food. 90 tablet 2 025 Active traMADol (Ultram) 50 MG tabletIndications :Primary osteoarthritis of right knee Take 1 tablet (50 mg) by mouth every 12 (twelve) hours if needed for severe pain for up to 28 days. 56 tablet 025 2024 Active rivaroxaban (Xarelto) 20 MG tabletIndications :Permanent atrial fibrillation (CMS/HCC) Take 1 tablet (20 mg) by mouth at bedtime. Take with food. 90 tablet 2 024 2024 Discontinued(R eorder (will not trigger notification to Pharmacy)) spironolactone (Aldactone) 25 MG tabletIndications :Essential hypertension TAKE 1 TABLET BY MOUTH EVERY DAY IN THE MORNING 90 tablet 1 024 2024 Discontinued traMADol (Ultram) 50 MG tabletIndications :Primary osteoarthritis of right knee Take 1 tablet (50 mg) by mouth every 12 (twelve) hours if needed for severe pain for up to 28 days. 56 tablet 025 2024 Discontinued(R eorder (will not trigger notification to Pharmacy)) Active Problems Problem Noted Date Diagnosed Date Viral URI 09/14/2023 Assessment & Plan (09/14/2023 9:38 AM EDT): Patient refers symptoms started last Monday, complains of cough/congestion, denied current fever/chills, will send rx for prednisone and albuterol inhaler, call back if worsening Smoker 03/16/2023 Assessment & Plan (03/16/2023 1:54 PM EDT): Will start on nicotine patches, he is currently smoking 5-6 cig a day, discussed importance of smoking cessation Hyperopia of both eyes 12/26/2022 Assessment & Plan (12/26/2022 10:17 AM EDT): Patient refers having far sighted eye vision loss, refers having headaches, last eye exam done about 4 years ago, will place referal for to [facility] eye care Screening for lung cancer 06/16/2022 Assessment & Plan (05/31/2023 10:28 AM EST): Will refer for lung cancer screening Screening for prostate cancer 06/16/2022 Atrial fibrillation 04/12/2022 Assessment & Plan (09/14/2023 9:33 AM EDT): Followed by cardiology, on xarelto, no changes will be made Assessment & Plan (09/06/2022 9:13 AM EDT): Followed by cardiology on xarelto, no bleeding episode reported, continue current management Assessment & Plan (06/16/2022 9:22 AM EST): Patient had echocardiogram done past week, has appointment with parts expediter 06/17/22, on Xarelto, no reported episode of bleeding, continue same treatment Essential hypertension 04/12/2022 Assessment & Plan (01/30/2024 12:05 AM EDT): Controlled, continue spironolactone, metoprolol, follow up cardiology, continue low sodium diet, new labs will be ordered for further evaluation Assessment & Plan (09/14/2023 9:33 AM EDT): Controlled, on spironolactone and metoprolol, keep low sodium diet and exercise as tolerated Assessment & Plan (05/31/2023 10:28 AM EST): Controlled, on metoprolol and spironolactone, no chest pain/shortness of breath reported, will leave on current therapy, reinforced importance of low sodium diet and exercise as tolerated, will follow up in 3-4 months bp target< 140/90 Assessment & Plan (03/16/2023 1:53 PM EDT): Controlled, no changes will be made, encouraged low sodium diet and exercise as tolerated Assessment & Plan (09/06/2022 9:13 AM EDT): Controlled, reinforced low sodium diet and exercise as tolerated, continue current treatment Assessment & Plan (06/16/2022 9:21 AM EST): Controlled, his bp ranges in the 120-130's over 75-85's, no changes will be made, reinforced , low sodium diet and exercise as tolerated. Will order new blood work for follow up, will see him in 3 months Hyperlipidemia 04/12/2022 Assessment & Plan (09/14/2023 9:34 AM EDT): On atorvastatin, continue same treatment, last lipid result were WNL Assessment & Plan (03/16/2023 1:53 PM EDT): Controlled last ldl was 102, continue atorvastatin 10mg Assessment & Plan (09/06/2022 9:14 AM EDT): Labs ordered previously, pending, continue atorvastatin, will follow results for guidance of therapy Assessment & Plan (06/16/2022 9:22 AM EST): Will order new labs for guidance of therapy Primary osteoarthritis of right knee 04/12/2022 Resolved Problems Problem Noted Date Diagnosed Date Resolved Date Screening for prostate cancer 06/16/2022 06/16/2022 Encounters Date Type Department Care Team Description 07/12/2024 Orders Only [facility] MED & PEDS [address] [place] [address] Tremaine Renee MD 07/11/2024 Refill [facility] MED [facility] PEDS [address] [place] [address] Tremaine Renee MD Primary osteoarthritis of right knee 07/11/2024 Refill [facility] MEDICINE [address] [place] [address] Tremaine Renee MD Primary osteoarthritis of right knee 07/08/2024 Refill [facility] MED & PEDS [address] [place] [address] Tremaine Renee MD Permanent atrial fibrillation (CMS/HCC) 07/04/2024 Telephone [facility] MEDICINE [address] [place] [address] Tremaine Renee MD Medication Question 07/03/2024 Refill [facility] [address] [place] [address] Tremaine Renee MD Permanent atrial fibrillation ([facility]) 07/01/2024 Refill [facility] [address] [place] [address] Tremaine Renee MD Permanent atrial fibrillation ([facility]) 06/21/2024 Refill [facility] [address] [place] [address] Tremaine Renee MD Essential hypertension 06/14/2024 Refill [facility] [address] [place] [address] Mirlande Gonzalez, CASTING PLUG ASSEMBLER 06/14/2024 Refill [facility] [address] [place] [address] Tremaine Renee MD Primary osteoarthritis of right knee 06/13/2024 Refill [facility] [address] [place] [address] Tremaine Renee MD Primary osteoarthritis of right knee 06/12/2024 Refill [facility] [address] [place] [address] Tremaine Renee MD Primary osteoarthritis of right knee 05/27/2024 9:00 AM EST Telemedicine [facility] [address] [place] [address] Deena Prince RN Back pain, unspecified back location, unspecified back pain laterality, unspecified chronicity 05/27/2024 Travel 05/24/2024 Refill [facility] [address] [place] [address] Tremaine Renee MD Mixed hyperlipidemia 05/17/2024 Refill [facility] [address] [place] [address] Tremaine Renee MD Primary osteoarthritis of right knee 04/22/2024 1:00 PM EST Office Visit [facility] [address] [place] [address] Sharron Lamas 04/22/2024 Refill [facility] [address] [place] [address] Deena Prince RN Primary osteoarthritis of right knee 04/22/2024 Telephone [facility] MEDICINE [address] [place] [address] Tremaine Renee MD Med Refill 04/18/2024 11:15 AM EST Office Visit [facility] [address] [place] [address] Fani Mishra MD Longstanding persistent atrial fibrillation (CMS/HCC) (Primary Dx); Congestion of nasal sinus; Bronchitis 04/18/2024 Travel 04/18/2024 Telephone [facility] MEDICINE [address] [place] [address] Tremaine Renee MD Nurse Triage from Last 3 Months Immunizations Name Administration Dates Next Due Influenza High-dose Quadriva lent Preservative Free 03/03/2022,04/08/2021,04/14/2020 Influenza injectable quadriv alent preservative free 05/11/2019 Pfizer Covid-19 Vaccine 12+ 03/25/2021,,08/15/2020 Pneumococcal Conjugate PCV 20 05/10/2022 Pneumococcal Polysaccharide PPSV23 05/11/2019 Zoster, Recombinant 05/10/2022,03/03/2022 Family History Medical History Relation Name Comments Heart disease Brother Heart disease Father Pancreatic cancer Mother Relation Name Status Comments Brother Father Mother Social History Tobacco Use Types Packs/Day Years Used Date Smoking Tobacco: Every Day Cigarettes 0.5 40 Smokeless Tobacco: Never Tobacco Cessation:Ready to Q uit: Yes; Counseling Given: Yes Alcohol Use Standard Drinks/Week Comments Yes 0 [...] Orientation Straight 03/28/2022 10 :36 AM EDT Last Filed Vital Signs Vital Sign Reading Time Taken Comments Blood Pressure 102/68 04/18/2024 11:17 AM EST Pulse 80 04/18/2024 11:17 AM EST Temperature 36.2 ??C (97.2 ??F) 04/18/2024 11:[address] Respiratory Rate 20 04/18/2024 11:17 AM EST Oxygen Saturation 96% 04/18/2024 11:17 AM EST Inhaled Oxygen Concentration - - Weight 113 kg (249 lb) 04/18/2024 11:17 AM EST Height 180.3 cm (5' 11 ) 04/18/2024 11:17 AM EST Body Mass Index 34.73 04/18/2024 11:17 AM EST Plan of Treatment Upcoming Encounters Date Type Department Care Team (Late st Contact Info) Description 07/23/2024 9:45 AM EST Telemedicine [facility] MED & PEDS [address] [place], [place] [phone] Tremaine Renee MD [address] [place], [place] [phone] 08/22/2024 9:00 AM EDT Clinical Support [facility] MED & PEDS [address] [place] [address] Deena Prince, RN [address] [place] [address] Health Maintenance Due Date Last Done Comments CT Colonography 1953 Colonoscopy 1953 Colorectal Cancer Screening 1953 Dental X-Ray: Full Mouth 1953 FIT DNA/Cologuard 1953 FIT 1953 FOBT 1953 Sigmoidoscopy 1953 Alcohol/Substance Use Screening 1965 DTaP/Tdap/Td Vaccines (1 - Tdap) 1972 Lung Cancer Screening 10/10/2003 Depression Screening 12/27/2023 12/26/2022, 12/27/19 23 SDOH Screening 12/27/2023 12/26/2022 COVID-19 Vaccine ( season) 2024 05/17/2022, 03/25/2021, 09/06/2020, Additional history exists Influenza Vaccine (#1) 2024 , 04/08/2021, 04/14/2020, Additional history exists Dental Oral Exam 08/21/2024 02/21/2024 Dental Prophylaxis 08/21/2024 02/21/2024 Dental X-Ray: Bitewings 10/26/2024 10/26/2023 Tobacco Screening 04/22/2025 04/22/2024 RSV Patients and Patients Aged 60 years or older (1 - 1-dose 75+ series) 2028 Lipid Panel 12/26/2028 12/27/2023, 01/28, 12/08/2021, Additional history exists Pneumococcal Vaccine: 50+ Years Completed 05/10/2022, 05/11/2019 Zoster Vaccines Completed 05/10/2022, 03/03/2022 Hepatitis C Screening Completed 02/21/2023 , 02/21/2023, 12/08/2021 HIB Vaccines Aged Out No longer eligi ble based on patient's age to complete this topic HPV Vaccines Aged Out No longer eligi ble based on patient's age to complete this topic Hepatitis A Vaccines Aged Out No long er eligible based on patient's age to complete this topic Hepatitis B Vaccines Aged Out No long er eligible based on patient's age to complete this topic IPV Vaccines Aged Out No longer eligi ble based on patient's age to complete this topic Meningococcal Vaccine Aged Out No tammi kaylyn eligible based on patient's age to complete this topic RSV under 20 months Aged Out No longe r eligible based on patient's age to complete this topic Rotavirus Vaccines Aged Out No longer eligible based on patient's age to complete this topic Procedures Procedure Name Priority Date/Time Associated Diagnosis Comments CASE PRESENTATION, DETAILED AND EXTENSIVE TREATMENT PLANNING Routine 04/22/2024 1:00 PM EST LIMITED ORAL EVALUATION - PROBLEM FOCUSED Routine 04/22/2024 1:00 PM EST POCT INFLUENZA A (ID NOW RAPID MOLECULAR) Routine 04/18/2024 11:37 AM EST Congestion of nasal sinus POCT INFLUENZA B (ID NOW RAPID MOLECULAR) Routine 04/18/2024 11:36 AM EST Congestion of nasal sinus POCT RAPID COVID ANTIGEN Routine 04/18/2024 11:33 AM EST Congestion of nasal sinus PROPHYLAXIS - ADULT Routine 02/21/2024 1 0:00 AM EDT PERIODIC ORAL EVALUATION - ESTABLISHED PATIENT Routine 02/21/2024 10:00 AM EDT LIPID PANEL, STANDARD Routine 12/27/2023 9:39 AM EDT Essential hypertension BITEWING - SINGLE RADIOGRAPHIC IMAGE Routine 10/26/2023 1:00 PM EDT HEPATITIS C AB W/REFL TO HCV RNA, QN, PCR Routine 02/21/2023 9:59 AM EDT from Last 3 Months or Most Recently Relevant to Health Maintenance Results * POCT Rapid Influenza A MUHAMMAD ID NOW (04/18/2024 11:37 AM EST) Influenza A Negative Negative, Indeterminate [facility] QC Media Lot # [id number] [facility] Lot# Expiration Date [facility] Swab 04/18/2024 11:3 7 AM EST Fani Mishra MD POINT OF CARE TEST ENTER/EDIT ORDERABLES Final Result Performing Organization Address City/[facility]/ZIP Co de Phone Number [facility] [address] [place] [address] [phone] * POCT Rapid Influenza B MUHAMMAD ID NOW (04/18/2024 11:36 AM EST) Pathologist [facility] Influenza B Negative Negative, Indeterminate [facility] QC Media Lot # [id number] [facility] Lot# Expiration Date [facility] Swab 04/18/2024 11:3 6 AM EST Fani Mishra MD POINT OF CARE TEST ENTER/EDIT ORDERABLES Final Result Performing Organization Address City/[facility]/ZIP Co de Phone Number [facility] [address] [place] [phone] * POCT Rapid Covid-19 BinaxNOW (04/18/2024 11:33 AM EST) Pathologist [facility] Rapid COVID Ag Negative QC Media Lot # [id number] Lot# Expiration Date [id number] Swab 04/18/2024 11:3 3 AM EST Fani Mishra MD POINT OF CARE TEST ENTER/EDIT ORDERABLES Final Result * (ABNORMAL) Lipid Panel, Standard (12/27/2023 9:39 AM EDT) Triglycerides 101 <150 mg/dL [facility] Comment:Desirable Triglyceri de: less than 150 mg/dLBorderline High Triglyceride 150-199 mg/dLHigh Triglyceride: 200-499 mg/dLVery High Triglyceride: greater than or equal to 5OO mg/dL Cholesterol 200(H) <200 mg/dL [facility] Comment:Desirable Cholestero l: less than 200 mg/dLBorderline High Cholesterol: 200-239 mg/dLHigh Cholesterol: greater than 239 mg/dL LDL Cholesterol Calculated 142(H) <100 mg/dL [facility] Comment:Desirable LDL: less than 100 mg/dLNear Optimal/Above Optimal LDL: 110- 129 mg/dLBorderline High LDL: 130-159 mg/dLHigh LDL: 160-189 mg/dLVery High LDL: greater than or equal to 190 mg/dL HDL Cholesterol 38(L) >40 mg/dL [facility] Comment:Desirable HDL: great er than 40 mg/dL Note: This HDL assay may give artificially low results in patients with liver disease. Blood Venous blood specimen / Unknown 12/27/2023 9:39 AM EDT 12/27/2023 2:24 PM EDT us Tremaine Lazaro MD LAB BLOOD ORDERABL ES Final Result Performing Organization Address [facility]/ZIP Co de Phone Number [facility] [address] [place] [phone] * (ABNORMAL) Hepatitis C Antibody with Reflex to HCV, RNA, Quantitative, Real- Time PCR (02/21/2023 9:59 AM EDT) Hepatitis C Antibody Reactive( A) Nonreactive [facility] Comment:Presumptive evidence of antibodies to HCV. 02/21/2023 9:59 AM EDT 02/21/2023 2:50 PM EDT us Tremaine Lazaro MD LAB BLOOD ORDERABL ES Final Result Performing Organization Address [facility] Co de Phone Number [facility] [address] [place] [phone] from Last 3 Months or Most Recently Relevant to Health Maintenance Insurance [facility] STANDARD MEDICARE DENTAL - HSN FULL (MEDICAID) Care Teams Legislative Analyst Relationship Specialty Start Date End Date DohertyTremaine Talavera MD [address] [place] [address] [place] [address] PCP - General Internal Medicine 05/20/19
--- OUTSIDE RECORDS SUMMARY | 2024-07-16 09:45 | XMS_ITS | Encounter Summary ---
Author Organization [employer] Address [address] [facility] 7t [place] [address] Care Team Providers Care Centrifugal Machine Tender Name Role Phone Tremaine Renee MD Primary Care Prov ider Encounter Details Date Type Department Care Team ([facility] st Contact Info) Description 12/19/2023 Telephone [facility] MED & PEDS [address] [place], [place] [phone] Tremaine Renee MD [address] [place] [address] Social History Tobacco Use Types Packs/Day Years Used Date Smoking Tobacco: Every Day Cigarettes 0.5 40 Smokeless Tobacco: Never Alcohol Use Standard Drinks/Week Comments Yes 0 (1 standard drink = 0.6 oz pur e alcohol) occasional Depression Answer Date Recorded Patient Health Questionnaire-9 Score 0 12/26/2022 Housing Stability Answer Date Recorded What is your housing situation today? I have austinlyla rinaldi 03/13/[address] you [...] Info) Description 07/23/2024 9:45 AM EST Telemedicine [facility] MED & PEDS [address] [place] [address] Tremaine Renee MD [address] [place] [address] 08/22/2024 9:00 AM EDT Clinical Support [facility] MED & PEDS [address] [place] [address] Deena Prince, SHI [address] [place] [address] documented as of this encounter Visit Diagnoses Not on filedocumented in this encounter Additional Health Concerns Assessment Noted Time PHQ-9 Depression Total Score: 0 12/27/19 23 9:36 AM EDT documented as of this encounter Care Teams Centrifugal Machine Tender Relationship Specialty Start Date End Date Tremaine Renee MD [address] [place] [address] PCP - General Internal Medicine 05/20/19 documented as of this encounter
--- OUTSIDE RECORDS SUMMARY | 2024-07-16 09:45 | XMS_ITS | Encounter Summary ---
Author Organization [employer] Address [address] [facility] 7 [place] [address] Care Team Providers Care Mailer Apprentice Name Role Phone Tremaine Renee MD Primary Care Prov ider Reason for Visit * Reason Onset Date Comments Medication Question 07/04/2024 Encounter Details Date Type Department Care Team ([facility] st Contact Info) Description 07/04/2024 Telephone [facility] MEDICINE [address] [place] [address] Tremaine Renee MD [address] [place], [place] [phone] Medication Question Social History Tobacco Use Types Packs/Day Years [...] encounter Miscellaneous Notes * Telephone Encounter - Kirti Gurrola RN - 07/08/2024 2:25 PM EST TC from patient stating he has been able to refill his Xarelto and has not taken it since the end of week. Patient denies any s/s of chest discomfort. Medication refilled and sent to pharmacy. * Telephone Encounter - Darlene Moulton - 07/08/2024 2:02 PM EST Tc from pt requesting a call back from nurses regarding med. [phone] * Telephone Encounter - Chandler Cisneros - 07/04/2024 9:53 AM EST Tc from pt requesting status rivaroxaban (Xarelto) 20 MG tablet. Pt states that they are currently out of medication. documented in this encounter Plan of Treatment Upcoming Encounters Date Type Department Care Team (Late st Contact Info) Description 07/23/2024 9:45 AM EST Telemedicine [facility] MED & PEDS [address] [place], [place] [phone] Tremaine Renee MD [address] [place], [place] [phone] 08/22/2024 9:00 AM EDT Clinical Support [facility] MED & PEDS [address] [place] [address] Deena Prince, SHI [address] [place] [address] documented as of this encounter Visit Diagnoses Diagnosis Permanent atrial fibrillation (CMS/HCC) Atrial fibrillation documented in this encounter Additional Health Concerns Assessment Noted Time PHQ-9 Depression Total Score: 0 12/27/19 9:36 AM EDT documented as of this encounter Care Teams Mailer Apprentice Relationship Specialty Start Date End Date Tremaine Renee MD [address] [place] [address] PCP - General Internal Medicine 05/20/19 documented as of this encounter
--- OUTSIDE RECORDS SUMMARY | 2024-07-16 09:45 | XMS_ITS | Encounter Summary ---
Author Organization [employer] Address [address] [facility] 7 [place] [address] Care Team Providers Care Mental Telepathist Name Role Phone Tremaine Renee MD Primary Care Prov ider Reason for Visit * Reason Onset Date Comments Med Refill 10/25/2022 Encounter Details Date Type Department Care Team (Late st Contact Info) Description 10/25/2022 Telephone [facility] [address] [place] [address] Tremaine Renee MD [address] [place] [address] Med Refill Social History Tobacco Use Types [...] suspected to have Coronavirus/COVID-19? No / Unsure 11/01/2022 8:41 AM EDT documented as of this encounter Miscellaneous Notes * Telephone Encounter - Eliceo Amaya - 10/25/2022 8:09 AM EDT Tc from pt requesting a med refill for tramadol 50 mg documented in this encounter Plan of Treatment Upcoming Encounters Date Type Department Care Team (Late st Contact Info) Description 07/23/2024 9:45 AM EST Telemedicine [facility] MED & PEDS [address] [place] [address] Tremaine Renee MD [address] [place] [address] 08/22/2024 9:00 AM EDT Clinical Support [facility] PED[facility] [address] [place] [address] Deena Prince RN [address] [place] [address] documented as of this encounter Visit Diagnoses Not on filedocumented in this encounter Care Teams Mental Telepathist Relationship Specialty Start Date End Date Tremaine Renee MD [address] [place] [address] PCP - General Internal Medicine 05/20/19 documented as of this encounter
--- OUTSIDE RECORDS SUMMARY | 2024-07-16 09:45 | XMS_ITS | Encounter Summary ---
Author Organization [employer] Address [address] [facility] 7 [place] [address] Care Team Providers Care Quarry Plant Crusher Operator Name Role Phone Tremaine Renee MD Primary Care Prov ider Reason for Visit * Reason Onset Date Comments Med Refill 04/22/2024 Encounter Details Date Type Department Care Team ([facility] st Contact Info) Description 04/22/2024 Telephone [facility] MEDICINE [address] [place] [address] Tremaine Renee MD [address] [place] [address] Med Refill Social History Tobacco Use Types [...] * Telephone Encounter - Reshma Kamara - 04/22/2024 8:45 AM EST TC from pt requesting medication refill. Medications needing refill : traMADol (Ultram) 50 MG tablet To be sent to: [facility]/pharmacy #[id number] [facility], [place] documented in this encounter Plan of Treatment Upcoming Encounters Date Type Department Care Team (Late st Contact Info) Description 07/23/2024 9:45 AM EST Telemedicine [facility] MED & PEDS [address] [place] [address] Tremaine Renee MD [address] [place] [address] 08/22/2024 9:00 AM EDT Clinical Support [facility] MED & PEDS [address] [place] [address] Deena Prince, SHI [address] [place] [address] documented as of this encounter Visit Diagnoses Not on filedocumented in this encounter Additional Health Concerns Assessment Noted Time PHQ-9 Depression Total Score: 0 12/27/19 23 9:36 AM EDT documented as of this encounter Care Teams Quarry Plant Crusher Operator Relationship Specialty Start Date End Date Tremaine Renee MD [address] [place] [address] PCP - General Internal Medicine 05/20/19 documented as of this encounter
--- OUTSIDE RECORDS SUMMARY | 2024-07-16 09:45 | XMS_ITS | Encounter Summary ---
Author Organization [employer] Address 75 [facility] 7t [place] [address] Care Team Providers Care Tissue Recovery Technician Name Role Phone Tremaine Renee MD Primary Care Prov ider Reason for Visit * Reason Comments Med Refill Encounter Details Date Type Department Care Team ([facility] st Contact Info) Description 06/14/2024 Refill [facility] CHC MED & PEDS [address] [place], [place] [phone] Tremaine Renee MD [address] [place] [address] Primary osteoarthritis of right knee Social History [...] [facility] MED & PEDS [address] [place] [address] Tremaine Renee MD [address] [place] [address] 08/22/2024 9:00 AM EDT Clinical Support [facility] MED & PEDS [address] [place] [address] Deena Prince, HSI [address] [place] [address] documented as of this encounter Visit Diagnoses Diagnosis Primary osteoarthritis of right knee documented in this encounter Additional Health Concerns Assessment Noted Time PHQ-9 Depression Total Score: 0 12/27/19 9:36 AM EDT documented as of this encounter Care Teams Tissue Recovery Technician Relationship Specialty Start Date End Date Tremaine Renee MD [address] [place] [address] PCP - General Internal Medicine 05/20/19 documented as of this encounter
--- OUTSIDE RECORDS SUMMARY | 2024-07-16 09:46 | XMS_ITS | Encounter Summary ---
Author Organization [employer] Address 75 [facility] 7t [place] [address] Care Team Providers Care Coroner Name Role Phone Tremaine Renee MD Primary Care Prov ider Reason for Visit * Reason Comments Med Refill Encounter Details Date Type Department Care Team ([facility] st Contact Info) Description 07/31/[address] [facility] CHC MED & PEDS [address] [place], [place] [phone] Treamine Renee MD [address] [place] [address] Primary osteoarthritis of right knee Social History [...] [facility] [address] [place] [address] Tremaine Renee MD [address] [place] [address] 08/22/2024 9:00 AM EDT Clinical Support [facility] MED & PEDS [address] [place] [address] Deena Prince, SHI [address] [place] [address] documented as of this encounter Visit Diagnoses Diagnosis Primary osteoarthritis of right knee documented in this encounter Additional Health Concerns Assessment Noted Time PHQ-9 Depression Total Score: 0 12/27/19 9:36 AM EDT documented as of this encounter Care Teams Coroner Relationship Specialty Start Date End Date Tremaine Renee MD [address] [place] [address] PCP - General Internal Medicine 05/20/19 documented as of this encounter
--- OUTSIDE RECORDS SUMMARY | 2024-07-16 09:46 | XMS_ITS | Encounter Summary ---
Author Organization [employer] Address 75 [facility] 7 [place] [address] Care Team Providers Care Electrical Project Manager Name Role Phone Tremaine Renee MD Primary Care Prov ider Reason for Visit * Reason Onset Date Comments Med Refill 12/16/2022 Encounter Details Date Type Department Care Team ([facility] st Contact Info) Description 12/16/2022 Telephone [facility] MEDICINE [address] [place] [address] Tremaine Renee MD [address] [place] [address] Med Refill Social History Tobacco Use Types [...] * Telephone Encounter - Eliceo Amaya - 12/16/2022 9:47 AM EDT Tc from pt requesting a refill for traMADol (Ultram) 50 MG tablet documented in this encounter Plan of Treatment Upcoming Encounters Date Type Department Care Team (Late st Contact Info) Description 07/23/2024 9:45 AM EST Telemedicine [facility] MED & PEDS [address] [place] [address] Tremaine Renee MD [address] [place] [address] 08/22/2024 9:00 AM EDT Clinical Support [facility] MED & PEDS [address] [place] [address] Deena Prince RN [address] [place] [address] documented as of this encounter Visit Diagnoses Not on filedocumented in this encounter Care Teams Electrical Project Manager Relationship Specialty Start Date End Date Tremaine Renee MD [address] [place] [address] PCP - General Internal Medicine 05/20/19 documented as of this encounter
--- OUTSIDE RECORDS SUMMARY | 2024-07-16 09:46 | XMS_ITS | Encounter Summary ---
Author Organization [employer] Address 75 [facility] 7t [place] [address] Care Team Providers Care Call Center Director Name Role Phone Tremaine Renee MD Primary Care Prov ider Reason for Visit * Reason Comments Med Refill Encounter Details Date Type Department Care Team ([facility] st Contact Info) Description 08/28/2023 Refill [facility] CHC MED & PEDS [address] [place], [place] [phone] Tremaine Renee MD 505 [place] [address] Primary osteoarthritis of right knee Social History [...] Info) Description 07/23/2024 9:45 AM EST Telemedicine [facility] MED & PEDS [address] [place] [address] Tremaine Renee MD [address] [place] [address] 08/22/2024 9:00 AM EDT Clinical Support [facility] MED & PEDS [address] [place] [address] Deena Prince, SHI [address] [place] [address] documented as of this encounter Visit Diagnoses Diagnosis Primary osteoarthritis of right knee documented in this encounter Additional Health Concerns Assessment Noted Time PHQ-9 Depression Total Score: 0 12/27/19 9:36 AM EDT documented as of this encounter Care Teams Call Center Director Relationship Specialty Start Date End Date Tremaine Renee MD [address] [place] [address] PCP - General Internal Medicine 05/20/19 documented as of this encounter
--- OUTSIDE RECORDS SUMMARY | 2024-07-16 09:46 | XMS_ITS | Encounter Summary ---
Author Organization [employer] Address 75 [facility] 7 [place] [address] Care Team Providers Care Wet Wheeler Name Role Phone Tremaine Renee MD Primary Care Prov ider Reason for Visit * Reason Onset Date Comments Med Refill 01/08/2024 Encounter Details Date Type Department Care Team (Late st Contact Info) Description 01/08/2024 Telephone [facility] MEDICINE [address] [place] [address] Tremaine Renee MD [address] [place] [address] Med Refill Social History Tobacco Use Types [...] encounter Miscellaneous Notes * Telephone Encounter - Cat Purdy - 01/08/2024 8:29 AM EDT TC from pt requesting medication refill. Medications needing refill : traMADol (Ultram) 50 MG tablet To be sent to: [facility]/pharmacy #[id number] - [place], [place] - [address] documented in this encounter Plan of Treatment Upcoming Encounters Date Type Department Care Team (Late st Contact Info) Description 07/23/2024 9:45 AM EST Telemedicine [facility] MED & PEDS [address] [place] [address] Tremaine Renee MD [address] [place] [address] 08/22/2024 9:00 AM EDT Clinical Support [facility] MED & PEDS [address] [place] [address] Deena Prince RN [address] [place] [address] documented as of this encounter Visit Diagnoses Not on filedocumented in this encounter Additional Health Concerns Assessment Noted Time PHQ-9 Depression Total Score: 0 12/27/19 23 9:36 AM EDT documented as of this encounter Care Teams Wet Wheeler Relationship Specialty Start Date End Date Tremaine Renee MD [address] [place] [address] PCP - General Internal Medicine 05/20/19 documented as of this encounter
--- OUTSIDE RECORDS SUMMARY | 2024-07-16 09:46 | XMS_ITS | Encounter Summary ---
Author Organization [employer] Address [address] [place] [address] 7 [place] [address] Care Team Providers Care Ada Accommodation Consultant Name Role Phone Tremaine Renee MD Primary Care Prov ider Reason for Visit * Reason Comments Med Refill Encounter Details Date Type Department Care Team ([facility] Contact Info) Description 01/14/2023 Refill [facility] MED & PEDS [address] [place], [place] [phone] Fani Mishra MD [address] [place] [address] Primary osteoarthritis of right knee Social History Tobacco Use Types Packs/Day Years Used Date Smoking Tobacco: Every Day Cigarettes 0.5 40 Smokeless Tobacco: Never Alcohol Use Standard Drinks/Week Comments Yes 0 (1 standard drink = 0.6 oz pur e alcohol) occasional Depression Answer Date Recorded Patient Health Questionnaire-9 Score 0 12/26/2022 Depression Answer Date Recorded Patient Health Questionnaire-2 Score 0 12/26/2022 Sex and Gender Information Value Date Recorded Sex Assigned at Male 03/28/2022 10:36 AM EDT Legal Sex Male 10:36 AM EDT Gender Identity Male 03/28/2022 10:36 AM EDT Sexual Orientation Straight 03/28/2022 10 :36 AM EDT documented as of this encounter Plan of Treatment Upcoming Encounters Date Type Department Care Team ([facility] Contact Info) Description 07/23/2024 9:45 AM EST Telemedicine [facility] CHC MED & PEDS [address] [place] [address] Tremaine Renee MD [address] [place], [place] [phone] 08/22/2024 9:00 AM EDT Clinical Support [facility] CHC MED & PEDS [address] [place] [address] Deena Prince, SHI [address] [place] [address] documented as of this encounter Visit Diagnoses Diagnosis Primary osteoarthritis of right knee documented in this encounter Additional Health Concerns Assessment Noted Time PHQ-9 Depression Total Score: 0 12/27/19 9:36 AM EDT documented as of this encounter Care Teams Ada Accommodation Consultant Relationship Specialty Start Date End Date Tremaine Renee MD [address] [place] [address] PCP - General Internal Medicine 05/20/19 documented as of this encounter
--- OUTSIDE RECORDS SUMMARY | 2024-07-16 09:46 | XMS_ITS | Encounter Summary ---
Author Organization [employer] Address 75 [facility] 7 [place] [address] Care Team Providers Care Valve Grinder Name Role Phone Tremaine Renee MD Primary Care Prov ider Reason for Visit * Reason Onset Date Comments Med Refill 07/31/2023 Encounter Details Date Type Department Care Team (Late st Contact Info) Description 07/31/2023 Telephone [facility] MEDICINE [address] [place] [address] Tremaine Renee MD [address] [place] [address] Med Refill Social History Tobacco Use Types [...] * Telephone Encounter - Amado Chou - 07/31/2023 8:20 AM EST TC from pt requesting medication refill. Medications needing refill : traMADol (Ultram) 50 MG tablet To be sent to: [facility]/PHARMACY #[id number] - [place], [place] - [address] documented in this encounter Plan of Treatment Upcoming Encounters Date Type Department Care Team (Late st Contact Info) Description 07/23/2024 9:45 AM EST Telemedicine [facility] MED & PEDS [address] [place] [address] Tremaine Renee MD [address] [place] [address] 08/22/2024 9:00 AM EDT Clinical Support [facility] MED & PEDS [address] [place] [address] Deena Prince RN [address] [place] [address] documented as of this encounter Visit Diagnoses Not on filedocumented in this encounter Additional Health Concerns Assessment Noted Time PHQ-9 Depression Total Score: 0 12/27/19 23 9:36 AM EDT documented as of this encounter Care Teams Valve Grinder Relationship Specialty Start Date End Date Tremaine Renee MD [address] [place] [address] PCP - General Internal Medicine 05/20/19 documented as of this encounter
[2024-07-16 14:47] LABS: Alanine Aminotransferase 34 U/L (0-40); Alkaline Phosphatase 72 U/L (39-117); Anion Gap 12 (12-20); Aspartate Amino Transferase 36 U/L (5-37); Bilirubin Total 0.5 mg/dL (0.0-1.0); Blood Urea Nitrogen 13 mg/dL (9-16); Calcium 9.3 mg/dL (8.4-10.2); Carbon Dioxide 27 mmol/L (22-29); Chloride 104 mmol/L (96-108); Cholesterol 169 mg/dL (<200); Estimated Glomerular Filt Rate > 60; Glucose Random 91 mg/dL (60-115); HDL Cholesterol 45 mg/dL (>40); LDL Cholesterol Calculated 109 mg/dL (<100); Potassium 4.2 mmol/L (3.3-5.1); Sodium 139 mmol/L (135-145); Total Protein 7.3 g/dL (6.5-8.0); Triglycerides 77 mg/dL (<150)
== END 2024-07-16 09:09 | disposition home or self-care (01) ==
LOC: HO.CHCLDS 09:08
PROVIDERS: Visit Provider Internal Medicine
DX: E78.2 Mixed hyperlipidemia (principal)
CPT/HCPCS: 36415; 80053; 80061

== ENCOUNTER 2024-08-15 09:28 | Outpatient (AMB) | payer MEDICARE, MEDICAID, SELFPAY ==
--- NOTE | 2024-08-15 09:41 | A.OFFVIS_ITS ---
Intake Visit Reasons: right knee injection, last inj 05/14/24 Allergies No Known Allergies [No Known Allergies*] Allergy (Verified 05/14/24 09:10) [facility] HPI right knee injection, last inj 05/14/24: Details: Mr. Mcdonald is a 68-year-old male who presents to the office today for repeat right knee injection for osteoarthritis. His last injection was 05/14/2024. He had good relief with this injection up until recently and noticed some soreness. [facility] Medical History Primary osteoarthritis of right knee Chronic diastolic (congestive) heart failure Hypertension Sleep apnea Paroxysmal atrial fibrillation Family History Mother No problems noted. Father No problems noted. Social History Alcohol intake: current Alcohol intake frequency: a few times a week Alcohol type: wine Patient Tobacco Use Status: Current everyday Tobacco user Cigarettes Per Day: 8 Years Smoked: 50 Current occupational status: retired Current occupation: Right Handed Review of Systems Const All systems reviewed & are unremarkable except as noted in HPI and below Physical Exam Const General: cooperative, healthy appearing and no acute distress Resp Effort & Inspection: normal respiratory effort and able to speak in complete sentences Cardio Rate: regular rate Peripheral pulses: Peripheral pulses 2+ throughout Skin Lesions: no lesions Rashes: no rashes Extrem Other: Right knee: Normal to inspection. No ecchymosis, redness or joint effusion. Patient is able to demonstrate full knee flexion extension. Crepitus felt with knee range of motion. Negative Lanie. NVI. Office Procedures AMB Joint Injection/Aspiration Joint Injection/Aspiration Primary Site: right knee Prep: site was prepped using aseptic technique, ethochloride spray was applied and injection warnings given Injected: 80 mg of, DepoMedrol, with 8 mL of (2% plain lido ) and in the joint Approach Used: anterolateral Procedure: The patient tolerated the procedure well, but had some pain with the injection and there was some relief with the local anesthesia Coding 84571 - Large joint Procedure code (CPT) selection complete Assessment & Plan Assessment & Plan (1) Primary osteoarthritis of right knee: Code(s): M17.11 - Unilateral primary osteoarthritis, right knee Category: Medical Plan The patient was offered a cortisone injection in the right knee with 80 mg of DepoMedrol. The patient was explained the risks, benefits, and alternatives to receiving this injection. After receiving consent for the injection, the patient had the procedure done while in the office today. The patient tolerated the procedure well with no complications. Follow-up will be p.r.n., or sooner if needed Coding Level of Care Code Est Pt Level 3 (67290) Diagnoses Primary osteoarthritis of right knee M17.11 CPT Codes Coding - 88289 Large joint: 46937 - Large joint ([id number])
--- OUTSIDE RECORDS SUMMARY | 2024-08-15 10:22 | XMS_ITS | Encounter Summary ---
Author Organization [employer] Address 75 [facility] 7 [place] [address] Care Team Providers Care Malt Specifications Control Assistant Name Role Phone Tremaine Renee MD Primary Care Prov ider Reason for Visit * Reason Onset Date Comments Med Refill 04/22/2024 Encounter Details Date Type Department Care Team ([facility] st Contact Info) Description 04/22/2024 Telephone [facility] MEDICINE [address] [place] [address] Tremaine Renee MD [address] [place] [address] Med Refill Social History Tobacco Use Types [...] 50 MG tablet [id number] [place] documented in this encounter Plan of Treatment Upcoming Encounters Date Type Department Care Team (Late st Contact Info) Description 08/22/2024 9:00 AM EDT Clinical Support [facility] MED & PEDS [address] [place] [address] Deena Prince RN [address] [place] [address] documented as of this encounter Visit Diagnoses Not on filedocumented in this encounter Additional Health Concerns Assessment Noted Time PHQ-9 Depression Total Score: 0 12/27/19 9:36 AM EDT documented as of this encounter Care Teams Malt Specifications Control Assistant Relationship Specialty Start Date End Date Tremaine Renee MD [address] [place] [address] PCP - General Internal Medicine 05/20/19 documented as of this encounter
--- OUTSIDE RECORDS SUMMARY | 2024-08-15 10:22 | XMS_ITS | Encounter Summary ---
Author Organization [employer] Address 75 [facility] 7t [place] [address] Care Team Providers Care Access Services Representative Name Role Phone Tremaine Renee MD Primary Care Prov ider Reason for Visit * Reason Comments Med Refill Encounter Details Date Type Department Care Team ([facility] st Contact Info) Description 06/14/2024 Refill [facility] CHC MED & PEDS [address] [place], [place] [phone] Tremaine Renee MD [address] [place] [address] Primary osteoarthritis of right knee Social History [...] Description 08/22/2024 9:00 AM EDT Clinical Support [facility] CHC MED & PEDS [address] [place] [address] Deena Prince RN [address] [place] [address] documented as of this encounter Visit Diagnoses Diagnosis Primary osteoarthritis of right knee documented in this encounter Additional Health Concerns Assessment Noted Time PHQ-9 Depression Total Score: 0 12/27/19 9:36 AM EDT documented as of this encounter Care Teams Access Services Representative Relationship Specialty Start Date End Date Tremaine Renee MD [address] [place] [address] PCP - General Internal Medicine 05/20/19 documented as of this encounter
--- OUTSIDE RECORDS SUMMARY | 2024-08-15 10:22 | XMS_ITS | Encounter Summary ---
Author Organization [employer] Address 75 [facility] 7 [place] [address] Care Team Providers Care Superintendent [employer] Name Role Phone Tremaine Renee MD Primary Care Prov ider Reason for Visit * Reason Onset Date Comments Med Refill 02/02/2024 Encounter Details Date Type Department Care Team (Late st Contact Info) Description 02/02/2024 Telephone [facility] MEDICINE [address] [place] [address] Tremaine Renee MD [address] [place] [address] Med Refill Social History Tobacco Use Types [...] MG tablet To be sent to: [facility]/pharmacy #[id number] - [place], [place] - [address] documented in this encounter Plan of Treatment Upcoming Encounters Date Type Department Care Team (Late st Contact Info) Description 08/22/2024 9:00 AM EDT Clinical Support [facility] CHC MED & PEDS [address] [place] [address] Deena Prince, SHI [address] [place] [address] documented as of this encounter Visit Diagnoses Not on filedocumented in this encounter Additional Health Concerns Assessment Noted Time PHQ-9 Depression Total Score: 0 12/27/19 9:36 AM EDT documented as of this encounter Care Teams Superintendent [employer] Relationship Specialty Start Date End Date Tremaine Renee MD [address] [place] [address] PCP - General Internal Medicine 05/20/19 documented as of this encounter
--- OUTSIDE RECORDS SUMMARY | 2024-08-15 10:22 | XMS_ITS | Encounter Summary ---
Author Organization [employer] Address 75 [facility] 7 [place] [address] Care Team Providers Care Multimedia Coordinator Name Role Phone Tremaine Renee MD Primary Care Prov ider Reason for Visit * Reason Onset Date Comments Med Refill 07/08/2024 Encounter Details Date Type Department Care Team ([facility] st Contact Info) Description 07/08/2024 Refill [facility] CHC MED & PEDS [address] [place], [place] [phone] Tremaine Renee MD [address] [place] [address] Permanent atrial fibrillation (CMS/HCC) Social History Tobacco [...] Description 08/22/2024 9:00 AM EDT Clinical Support [facility] CHC MED & PEDS [address] [place] [address] Deena Prince RN 505 [place], [place] [phone] documented as of this encounter Visit Diagnoses Diagnosis Permanent atrial fibrillation (CMS/HCC) Atrial fibrillation documented in this encounter Additional Health Concerns Assessment Noted Time PHQ-9 Depression Total Score: 0 12/27/19 9:36 AM EDT documented as of this encounter Care Teams Multimedia Coordinator Relationship Specialty Start Date End Date Tremaine Renee MD [address] [place] [address] PCP - General Internal Medicine 05/20/19 documented as of this encounter
--- OUTSIDE RECORDS SUMMARY | 2024-08-15 10:22 | XMS_ITS | Encounter Summary ---
Author Organization [employer] Address 75 [facility] 7 [place] [address] Care Team Providers Care Clinical Partner Name Role Phone Tremaine Renee MD Primary Care Prov ider Reason for Visit * Reason Onset Date Comments Med Refill 06/13/2024 Encounter Details Date Type Department Care Team ([facility] st Contact Info) Description 06/13/2024 Refill [facility] CHC MED & PEDS [address] [place] [address] Tremaine Renee MD [address] [place] [address] Primary osteoarthritis of right knee Social History [...] Description 08/22/2024 9:00 AM EDT Clinical Support [facility] CHC MED & PEDS [address] [place] [address] Deena Prince, RN [address] [place] [address] documented as of this encounter Visit Diagnoses Diagnosis Primary osteoarthritis of right knee documented in this encounter Additional Health Concerns Assessment Noted Time PHQ-9 Depression Total Score: 0 12/27/19 9:36 AM EDT documented as of this encounter Care Teams Clinical Partner Relationship Specialty Start Date End Date Tremaine Renee MD [address] [place] [address] PCP - General Internal Medicine 05/20/19 documented as of this encounter
--- OUTSIDE RECORDS SUMMARY | 2024-08-15 10:22 | XMS_ITS | Encounter Summary ---
Author Organization [employer] Address 75 [facility] 7t [place] [address] Care Team Providers Care Hollow Core Door Frame Assembler Name Role Phone Tremaine Renee MD Primary Care Prov ider Encounter Details Date Type Department Care Team ([facility] st Contact Info) Description 07/12/2024 Orders Only [facility] CHC MED & PEDS [address] [place], [place] [phone] Tremaine Renee MD [address] [place] [address] Social History Tobacco Use Types Packs/Day Years [...] Description 08/22/2024 9:00 AM EDT Clinical Support [facility] MED & PEDS [address] [place] [address] Deena Prince, SHI [address] [place] [address] documented as of this encounter Visit Diagnoses Not on filedocumented in this encounter Additional Health Concerns Assessment Noted Time PHQ-9 Depression Total Score: 0 12/27/19 9:36 AM EDT documented as of this encounter Care Teams Hollow Core Door Frame Assembler Relationship Specialty Start Date End Date Tremaine Renee MD [address] [place] [address] PCP - General Internal Medicine 05/20/19 documented as of this encounter
--- OUTSIDE RECORDS SUMMARY | 2024-08-15 10:22 | XMS_ITS | Encounter Summary ---
Author Organization [employer] Address 75 [facility] 7 [place] [address] Care Team Providers Care Community Support Associate Name Role Phone Tremaine Renee MD Primary Care Prov ider Reason for Visit * Reason Onset Date Comments Med Refill 07/29/2022 Encounter Details Date Type Department Care Team ([facility] st Contact Info) Description 07/29/2022 Telephone [facility] MEDICINE [address] [place] [address] Tremaine Renee MD [address] [place] [address] Med Refill Social History Tobacco Use Types [...] Upcoming Encounters Date Type Department Care Team ([facility] st Contact Info) Description 08/22/2024 9:00 AM EDT Clinical Support [facility] MED & PEDS [address] [place] [address] Deena Prince, RN [address] [place] [address] documented as of this encounter Visit Diagnoses Not on filedocumented in this encounter Care Teams Community Support Associate Relationship Specialty Start Date End Date Tremaine Renee MD [address] [place] [address] PCP - General Internal Medicine 05/20/19 documented as of this encounter
--- OUTSIDE RECORDS SUMMARY | 2024-08-15 10:22 | XMS_ITS | Encounter Summary ---
Author Organization [employer] Address 75 [facility] 7 [place] [address] Care Team Providers Care Superintendent Renting Managing Name Role Phone Tremaine Renee MD Primary Care Prov ider Reason for Visit * Reason Onset Date Comments Med Refill 07/11/2024 Encounter Details Date Type Department Care Team ([facility] st Contact Info) Description 07/11/2024 Refill [facility] [address] [place] [address] Tremaine Renee MD [address] [place] [address] Primary osteoarthritis of right knee Social History [...] Description 08/22/2024 9:00 AM EDT Clinical Support [facility] [address] [place] [address] Deena Prince, RN [address] [place] [address] documented as of this encounter Visit Diagnoses Diagnosis Primary osteoarthritis of right knee documented in this encounter Additional Health Concerns Assessment Noted Time PHQ-9 Depression Total Score: 0 12/27/19 9:36 AM EDT documented as of this encounter Care Teams Superintendent Renting Managing Relationship Specialty Start Date End Date Tremaine Renee MD [address] [place] [address] PCP - General Internal Medicine 05/20/19 documented as of this encounter
--- OUTSIDE RECORDS SUMMARY | 2024-08-15 10:22 | XMS_ITS | Clinical Summary ---
Author Organization [employer] Address [address] [place] [address] 7t [place] [address] Care Team Providers Care Drier And Pulverizer Tender Name Role Phone Tremaine Renee MD [...] Additional Information Patient not taking.Reported on 02/21/2024 atorvastatin (Lipitor) 10 MG tabletIndications :Mixed hyperlipidemia TAKE 1 TABLET BY MOUTH EVERY DAY IN THE MORNING 90 tablet 024 Active ibuprofen 400 MG tablet Take 1 tablet (400 mg) by mouth every 6 (six) hours if needed (pain or fever). 60 tablet 025 Active rivaroxaban (Xarelto) 20 MG tabletIndications :Permanent atrial fibrillation (CMS/HCC) Take 1 tablet (20 mg) by mouth at bedtime. Take with food. 90 tablet 2 025 Active spironolactone (Aldactone) 25 MG tabletIndications :Essential hypertension Take 1 tablet (25 mg) by mouth in the morning. 90 tablet 3 025 2025 Active traMADol (Ultram) 50 MG tabletIndications :Primary osteoarthritis of right knee Take 1 tablet (50 mg) by mouth every 12 (twelve) hours if needed for severe pain for up to 28 days. 56 tablet 025 2024 Active azithromycin (Zithromax) 250 MG tablet Take 2 tabs orally on day 1, then 1 tab orally daily x 4 more days 6 tablet 024 2024 Discontinued(T herapy completed) spironolactone (Aldactone) 25 MG tabletIndications :Essential hypertension TAKE 1 TABLET BY MOUTH EVERY DAY IN THE MORNING 90 tablet 1 025 2024 Discontinued(R eorder (will not trigger notification to Pharmacy)) traMADol (Ultram) 50 MG tabletIndications :Primary osteoarthritis [...] years ago, will place referal for to [facility] eye care Screening for lung cancer 06/16/2022 Assessment & Plan (07/23/2024 10:04 AM EST): Will place lung cancer screening referral Assessment & Plan (05/31/2023 10:28 AM EST): Will refer for lung cancer screening Screening for prostate cancer 06/16/2022 Atrial fibrillation 04/12/2022 Assessment & Plan (07/23/2024 10:03 AM EST): Followed by cardiology, he is on xarelto and metoprolol, no chest pain or palpitations Assessment & Plan (09/14/2023 9:33 AM EDT): Followed by cardiology, on xarelto, no changes will be made Assessment & Plan (09/06/2022 9:13 AM EDT): Followed by cardiology on xarelto, no bleeding episode reported, continue current management Assessment & Plan (06/16/2022 9:22 AM EST): Patient had echocardiogram done past week, has appointment with specifications writer 06/17/22, on Xarelto, no reported episode of bleeding, continue same treatment Essential hypertension 04/12/2022 Assessment & Plan (07/23/2024 10:03 AM EST): Controlled, continue low sodium diet and exercise as tolerated, labs reviewed Assessment & Plan (01/30/2024 12:05 AM EDT): [...] 3 months Hyperlipidemia 04/12/2022 Assessment & Plan (07/23/2024 10:05 AM EST): On atorvastatin 10mg, cholesterol/ldl Assessment & Plan (09/14/2023 9:34 AM EDT): [...] Encounters Date Type Department Care Team Description 08/08/2024 Refill [facility] [address] [place] [address] Tremaine Renee MD Primary osteoarthritis of right knee 08/07/2024 Refill [facility] [address] [place] [address] Tremaine Renee MD Primary osteoarthritis of right knee 07/23/2024 9:45 AM EST Telemedicine [facility] [address] [place] [address] Tremaine Renee MD Screening for colon cancer (Primary Dx); Dietary counseling; Exercise counseling; Essential hypertension; Permanent atrial fibrillation (CMS/HCC); Screening for lung cancer; Mixed hyperlipidemia 07/23/2024 Travel 07/22/2024 Telephone [facility] [address] [place] [address] Tremaine Renee MD chart prep 07/12/2024 Orders Only [facility] [address] [place] [address] Tremaine Renee MD 07/11/2024 Refill [facility] [address] [place] [address] Tremaine Renee MD Primary osteoarthritis of right knee 07/11/2024 Refill [facility] [address] [place] [address] Tremaine Renee MD Primary osteoarthritis of right knee 07/08/2024 Refill [facility] [address] [place] [address] Tremaine Renee MD Permanent atrial fibrillation (CMS/HCC) 07/04/2024 Telephone [facility] [address] [place] [address] Tremaine Renee MD Medication Question 07/03/2024 Refill [facility] [address] [place] [address] Trmeaine Renee MD Permanent atrial fibrillation (CMS/HCC) 07/01/2024 Refill [facility] [address] [place] [address] Tremaine Renee MD Permanent atrial fibrillation (CMS/HCC) 06/21/2024 Refill [facility] [address] [place] [address] Tremaine Renee MD Essential hypertension 06/14/2024 Refill [facility] [address] [place] [address] Mirlande Gonzalez, WELLNESS INSTRUCTOR 06/14/2024 Refill [facility] [address] [place] [address] Tremaine Renee MD Primary osteoarthritis of right knee 06/13/2024 Refill [facility] [address] [place] [address] Tremaine Renee MD Primary osteoarthritis of right knee 06/12/2024 Refill [facility] [address] [place] [address] Tremaine Renee MD Primary osteoarthritis of right knee 05/27/2024 9:00 AM EST Telemedicine [facility] [address] [place] [address] Deena Prince RN Back pain, unspecified back location, unspecified back pain laterality, unspecified chronicity 05/27/2024 Travel 05/24/2024 Refill [facility] [address] [place] [address] Tremaine Renee MD Mixed hyperlipidemia 05/17/2024 Refill [facility] [address] [place] [address] Tremaine Renee MD Primary osteoarthritis of right knee from Last 3 Months Immunizations Name Administration [...] Date Recorded Patient Health Questionnaire-9 Score 0 07/23/2024 Patient Health Questionnaire-9 Score 0 07/23/2024 Last PHQ-9: Questionnaire Data Not on file 0 07/23/2024 Housing Stability Answer Date Recorded What is your housing situation today? I have austin rinaldi 07/23/[address] you li ve. Do you have problems with any of the following? None of the above 07/23/2024 Food Insecurity Answer Date Recorded Within the past 12 months, y ou worried that your food would run out before you got money to buy more: Never True 07/23/2024 Within the past 12 months,th e food you bought just didn't last and you didn't have enough money to get more: Never True Transportation Answer Date Recorded In the past 12 months, has l ack of transportation kept you from medical appts, meetings, work or from getting things needed for daily living? No 07/23/2024 Utilities Answer Date Recorded In the past 12 months, has t he electric, gas, oil or water company threatened to shut off services in your home? No 07/23/2024 Depression Answer Date Recorded Patient Health Questionnaire-2 Score 0 07/23/2024 Internet Access Answer Date Recorded Internet Access Q1 Yes 07/23/2024 Internet Access Q2 Not on file 07/23/2024 Sex and Gender Information Value Date Recorded [...] Upcoming Encounters Date Type Department Care Team ([facility] st Contact Info) Description 08/22/2024 9:00 AM EDT Clinical Support [facility] [address] [place] [address] Deena Prince, RN [address] [place] [address] Health Maintenance Due Date Last Done Comments CT Colonography 1953 Colonoscopy 1953 Colorectal Cancer Screening 1953 Dental X-Ray: Full Mouth 1953 FIT DNA/Cologuard 1953 FIT 1953 FOBT 1953 Sigmoidoscopy 1953 DTaP/Tdap/Td Vaccines (1 - Tdap) 1972 Lung Cancer Screening 10/10/2003 COVID-19 Vaccine ( - 2023- season) 2024 05/17/2022, 03/25/2021, 09/06/2020, Additional history exists Influenza Vaccine (#1) 2024 , 04/08/2021, 04/14/2020, Additional history exists Dental Oral Exam 08/21/2024 02/21/2024 Dental Prophylaxis 08/21/2024 02/21/2024 Dental X-Ray: Bitewings 10/26/2024 10/26/2023 Alcohol/Substance Use Screening 07/23/2025 07/23/2024 Depression Screening 07/23/2025 07/23/2024, 07/23/19 SDOH Screening 07/23/2025 07/23/2024 Tobacco Screening 07/23/2025 07/23/2024 RSV Patients and Patients Aged 60 years or older (1 - 1-dose 75+ series) 2028 Lipid Panel 07/16/2029 07/16/2024, 11/28, 02/21/2023, Additional history exists Pneumococcal Vaccine: 50+ Years [...] Procedure Name Priority Date/Time Associated Diagnosis Comments LIPID PANEL, STANDARD Routine 07/16/2024 9:18 AM EST Mixed hyperlipidemia COMPREHENSIVE METABOLIC PANEL Routine 07/16/2024 9:18 AM EST Mixed hyperlipidemia PROPHYLAXIS - ADULT Routine 02/21/2024 1 0:00 AM EDT PERIODIC ORAL EVALUATION - ESTABLISHED PATIENT Routine 02/21/2024 10:00 AM EDT BITEWING - SINGLE RADIOGRAPHIC IMAGE Routine 10/26/2023 1:00 PM EDT HEPATITIS C AB W/REFL TO HCV RNA, QN, PCR Routine 02/21/2023 9:59 AM EDT from Last 3 Months or Most Recently Relevant to Health Maintenance Results * (ABNORMAL) Lipid Panel, Standard (07/16/2024 9:18 AM EST) Triglycerides 77 <150 mg/dL [facility] Comment:Desirable Triglyceri de: less than 150 mg/dLBorderline High Triglyceride 150-199 mg/dLHigh Triglyceride: 200-499 mg/dLVery High Triglyceride: greater than or equal to 5OO mg/dL Cholesterol 169 <200 mg/dL [facility] Comment:Desirable Cholestero l: less than 200 mg/dLBorderline High Cholesterol: 200-239 mg/dLHigh Cholesterol: greater than 239 mg/dL LDL Cholesterol Calculated 109(H) <100 mg/dL [facility] Comment:Desirable LDL: less than 100 mg/dLNear Optimal/Above Optimal LDL: 110- 129 mg/dLBorderline High LDL: 130-159 mg/dLHigh LDL: 160-189 mg/dLVery High LDL: greater than or equal to 190 mg/dL HDL Cholesterol 45 >40 mg/dL [facility] Comment:Desirable HDL: great er than 40 mg/dL Note: This HDL assay may give artificially low results in patients with liver disease. Blood Venous blood specimen / Unknown 07/16/2024 9:18 AM EST 07/16/2024 2:14 PM EST Tremaine Lazaro MD LAB BLOOD ORDERABL ES Final Result [facility] [address] [place] [address] [phone] * Comprehensive Metabolic Panel (07/16/2024 9:18 AM EST) Sodium 139 135 - 145 mmol/L [facility] Potassium 4.2 3.3 - 5.1 mmol/L [facility] Chloride 104 96 - 108 mmol/L [facility] Carbon Dioxide 27 22 - 29 mmol/L [facility] Anion Gap 12 12 - 20 [facility] Urea Nitrogen (BUN) 13 9 - 16 mg/dL [facility] Creatinine, Serum 0.90 0.5 - 1.4 mg/dL [facility] Estimated Glomerular Filt Rate >60 [facility] Comment:Chronic Kidney Disea se: Estimated GFR < 60 mL/min/1.28x3Hbaimg Kidney Disease: Estimated GFR < 15 mL/min/1.73m2 Glucose 91 60 - 115 mg/dL [facility] Calcium 9.3 8.4 - 10.2 mg/dL [facility] Bilirubin, Total 0.5 0.0 - 1.0 mg/dL [facility] Aspartate Amino Transferase 36 5 - 37 U/L [facility] Alanine Aminotransferase 34 0 - 40 U/L [facility] Total Protein 7.3 6.5 - 8.0 g/dL [facility] Albumin Level 4.0 3.5 - 5.0 g/dL [facility] Alkaline Phosphatase 72 39 - 117 U/L [facility] Blood Venous blood specimen / Unknown 07/16/2024 9:18 AM EST 07/16/2024 2:14 PM EST Tremaine Lazaro MD LAB BLOOD ORDERABL ES Final Result Performing Organization Address [facility] Co de Phone Number [facility] [address] [place] [address] [phone] * (ABNORMAL) Hepatitis C Antibody with Reflex to HCV, RNA, Quantitative, Real- Time PCR (02/21/2023 9:59 AM EDT) Hepatitis C Antibody Reactive( A) Nonreactive [facility] Comment:Presumptive evidence of antibodies to HCV. 02/21/2023 9:59 AM EDT 02/21/2023 2:50 PM EDT Tremaine Lazaro MD LAB BLOOD ORDERABL ES Final Result Performing Organization Address [facility] Co de Phone Number [facility] [address] [place] [address] [phone] from Last 3 Months or Most Recently Relevant to Health Maintenance Insurance [facility] STANDARD [place] [phone] DENTAL - HSN FULL (MEDICAID) Care Teams Drier And Pulverizer Tender Relationship Specialty Start Date End Date Tremaine Renee MD [address] [place] [address] PCP - General Internal Medicine 05/20/19
--- OUTSIDE RECORDS SUMMARY | 2024-08-15 10:22 | XMS_ITS | Encounter Summary ---
Author Organization [employer] Address 75 [facility] 7 [place] [address] Care Team Providers Care Sales Product Specialist Name Role Phone Tremaine Renee MD Primary Care Prov ider Reason for Visit * Reason Onset Date Comments Med Refill 07/03/2024 Encounter Details Date Type Department Care Team ([facility] st Contact Info) Description 07/03/2024 Refill [facility] [address] [place], [place] [phone] Tremaine Renee MD [address] [place] [address] Permanent atrial fibrillation (CMS/HCC) Social History Tobacco [...] Description 08/22/2024 9:00 AM EDT Clinical Support [facility] [address] [place] [address] Deena Prince RN [address] [place], [place] [phone] documented as of this encounter Visit Diagnoses Diagnosis Permanent atrial fibrillation (CMS/HCC) Atrial fibrillation documented in this encounter Additional Health Concerns Assessment Noted Time PHQ-9 Depression Total Score: 0 12/27/19 9:36 AM EDT documented as of this encounter Care Teams Sales Product Specialist Relationship Specialty Start Date End Date Tremaine Renee MD [address] [place] [address] PCP - General Internal Medicine 05/20/19 documented as of this encounter
--- OUTSIDE RECORDS SUMMARY | 2024-08-15 10:22 | XMS_ITS | Encounter Summary ---
Author Organization [employer] Address 75 [facility] 7 [place] [address] Care Team Providers Care Educational Technology Specialist Name Role Phone Tremaine Renee MD Primary Care Prov ider Reason for Visit * Reason Comments Med Refill Encounter Details Date Type Department Care Team ([facility] st Contact Info) Description 07/01/2024 Refill [facility] [address] [place], [place] [phone] Tremaine Renee MD [address] [place] [address] Permanent atrial fibrillation (CMS/HCC) Social History Tobacco [...] Description 08/22/2024 9:00 AM EDT Clinical Support [facility] MED & PEDS [address] [place] [address] Deena Prince RN [address] [place] [address] documented as of this encounter Visit Diagnoses Diagnosis Permanent atrial fibrillation (CMS/HCC) Atrial fibrillation documented in this encounter Additional Health Concerns Assessment Noted Time PHQ-9 Depression Total Score: 0 12/27/19 9:36 AM EDT documented as of this encounter Care Teams Educational Technology Specialist Relationship Specialty Start Date End Date Tremaine Renee MD [address] [place] [address] PCP - General Internal Medicine 05/20/19 documented as of this encounter
--- OUTSIDE RECORDS SUMMARY | 2024-08-15 10:23 | XMS_ITS | Encounter Summary ---
Author Organization [employer] Address 75 [facility] 7 [place] [address] Care Team Providers Care Tie Tape Machine Operator Name Role Phone Tremaine Renee MD Primary Care Prov ider Reason for Visit * Reason Onset Date Comments Paperwork/Forms 11/23/2023 Encounter Details Date Type Department Care Team ([facility] st Contact Info) Description 11/23/2023 Telephone [facility] MED & PEDS [address] [place], [place] [phone] Tremaine Renee MD [address] [place] [address] Paperwork/Forms Social History Tobacco Use Types Packs/Day [...] status on medical clearance form sent by [facility] dental. Please contact pt at [phone] documented in this encounter Plan of Treatment Upcoming Encounters Date Type Department Care Team (Late st Contact Info) Description 08/22/2024 9:00 AM EDT Clinical Support [facility] MED & PEDS [address] [place] [address] Deena Prince RN [address] [place] [address] documented as of this encounter Visit Diagnoses Not on filedocumented in this encounter Additional Health Concerns Assessment Noted Time PHQ-9 Depression Total Score: 0 12/27/19 23 9:36 AM EDT documented as of this encounter Care Teams Tie Tape Machine Operator Relationship Specialty Start Date End Date Tremaine Renee MD [address] [place] [address] PCP - General Internal Medicine 05/20/19 documented as of this encounter
--- OUTSIDE RECORDS SUMMARY | 2024-08-15 10:23 | XMS_ITS | Encounter Summary ---
Author Organization [employer] Address 75 [facility] 7 [place] [address] Care Team Providers Care Premises Technician Name Role Phone Tremaine Renee MD Primary Care Prov ider Reason for Visit * Reason Onset Date Comments Med Refill 08/07/2024 Encounter Details Date Type Department Care Team ([facility] st Contact Info) Description 08/07/[address] [facility] PEDS [address] [place] [address] Tremaine Renee MD [address] [place] [address] Primary osteoarthritis of right knee Social History [...] encounter Miscellaneous Notes * Telephone Encounter - Renee Lockett - 08/07/2024 9:57 AM EDT TC from pt requesting medication refill. Medications needing refill : traMADol (Ultram) 50 MG tablet To be sent to: [facility]/pharmacy #[id number] [facility], [place] - [address] documented in this encounter Plan of Treatment Upcoming Encounters Date Type Department Care Team (Late st Contact Info) Description 08/22/2024 9:00 AM EDT Clinical Support [facility] PEDS [address] [place] [address] Deena Prince RN [address] [place] [address] documented as of this encounter Visit Diagnoses Diagnosis Primary osteoarthritis of right knee documented in this encounter Additional Health Concerns Assessment Noted Time PHQ-9 Depression Total Score: 0 07/23/19 9:20 AM EST documented as of this encounter Care Teams Premises Technician Relationship Specialty Start Date End Date Tremaine Renee MD [address] [place] [address] PCP - General Internal Medicine 05/20/19 documented as of this encounter
--- OUTSIDE RECORDS SUMMARY | 2024-08-15 10:23 | XMS_ITS | Encounter Summary ---
Author Organization [employer] Address 75 [facility] 7t [place] [address] Care Team Providers Care Teachers Aide Name Role Phone Tremaine Renee MD Primary Care Prov ider Reason for Visit * Reason Comments Med Refill Encounter Details Date Type Department Care Team (Late st Contact Info) Description 06/03/2023 Refill [facility] [address] [place] [address] Tremaine Renee MD [address] [place], [place] [phone] Primary osteoarthritis of right knee Social History [...] Description 08/22/2024 9:00 AM EDT Clinical Support [facility] [address] [place] [address] Deena Prince, SHI [address] [place] [address] documented as of this encounter Visit Diagnoses Diagnosis Primary osteoarthritis of right knee documented in this encounter Additional Health Concerns Assessment Noted Time PHQ-9 Depression Total Score: 0 12/27/19 9:36 AM EDT documented as of this encounter Care Teams Teachers Aide Relationship Specialty Start Date End Date Tremaine Renee MD [address] [place] [address] PCP - General Internal Medicine 05/20/19 documented as of this encounter
--- OUTSIDE RECORDS SUMMARY | 2024-08-15 10:23 | XMS_ITS | Encounter Summary ---
Author Organization [employer] Address 75 [facility] 7t [place] [address] Care Team Providers Care Net Developer Contract Name Role Phone Tremaine Renee MD Primary Care Prov ider Encounter Details Date Type Department Care Team (Latest Contact Info) Description 07/23/2024 Travel Social History Tobacco Use Types Packs/Day Years [...] Description 08/22/2024 9:00 AM EDT Clinical Support [facility] & PED[facility] [address] [place] [address] Deena Prince RN [address] [place] [address] documented as of this encounter Visit Diagnoses Not on filedocumented in this encounter Additional Health Concerns Assessment Noted Time PHQ-9 Depression Total Score: 0 07/23/19 9:20 AM EST documented as of this encounter Care Teams Net Developer Contract Relationship Specialty Start Date End Date Tremaine Renee MD [address] [place] [address] PCP - General Internal Medicine 05/20/19 documented as of this encounter
--- OUTSIDE RECORDS SUMMARY | 2024-08-15 10:23 | XMS_ITS | Encounter Summary ---
Author Organization [employer] Address 75 [facility] 7t [place] [address] Care Team Providers Care Insurance Agency Sales Manager Name Role Phone Tremaine Renee MD Primary Care Prov ider Reason for Visit * Reason Comments Med Refill Encounter Details Date Type Department Care Team ([facility] st Contact Info) Description 08/28/2023 Refill [facility] [address] [place], [place] [phone] Tremaine Renee MD [address] [place] [address] Primary osteoarthritis of right knee Social History [...] Description 08/22/2024 9:00 AM EDT Clinical Support [facility] [address] [place] [address] Deena Prince RN [address] [place] [address] documented as of this encounter Visit Diagnoses Diagnosis Primary osteoarthritis of right knee documented in this encounter Additional Health Concerns Assessment Noted Time PHQ-9 Depression Total Score: 0 12/27/19 9:36 AM EDT documented as of this encounter Care Teams Insurance Agency Sales Manager Relationship Specialty Start Date End Date Tremaine Renee MD [address] [place] [address] PCP - General Internal Medicine 05/20/19 documented as of this encounter
--- OUTSIDE RECORDS SUMMARY | 2024-08-15 10:23 | XMS_ITS | Encounter Summary ---
Author Organization [employer] Address [address] [facility] 7 [place] [address] Care Team Providers Care Kitchen Steward Name Role Phone Tremaine Renee MD Primary Care Prov ider Reason for Visit * Reason Onset Date Comments Med Refill 01/08/2024 Encounter Details Date Type Department Care Team (Late st Contact Info) Description 01/08/2024 Telephone [facility] MEDICINE [address] [place] [address] Tremaine Renee MD 505 [place] [address] Med Refill Social History Tobacco Use Types [...] 50 MG tablet To be sent to: [facility]/pharmacy #[id number] - [place], [place] - [id number] documented in this encounter Plan of Treatment Upcoming Encounters Date Type Department Care Team (Late st Contact Info) Description 08/22/2024 9:00 AM EDT Clinical Support [facility] CHC MED & PEDS [address] [place] [address] Deena Prince, SHI 505 [place] [address] documented as of this encounter Visit Diagnoses Not on filedocumented in this encounter Additional Health Concerns Assessment Noted Time PHQ-9 Depression Total Score: 0 12/27/19 9:36 AM EDT documented as of this encounter Care Teams Kitchen Steward Relationship Specialty Start Date End Date Tremaine Renee MD [address] [place] [address] PCP - General Internal Medicine 05/20/19 documented as of this encounter
--- OUTSIDE RECORDS SUMMARY | 2024-08-15 10:23 | XMS_ITS | Encounter Summary ---
Author Organization [employer] Address [address] [facility] 7t [place] [address] Care Team Providers Care Director Clinical Information Services Name Role Phone Tremaine Renee MD Primary Care Prov ider Reason for Visit * Reason Onset Date Comments medical clearance 11/17/2023 Encounter Details Date Type Department Care Team ([facility] st Contact Info) Description 11/17/2023 Telephone [facility] ADULT DENTAL [address] [place], [place] [phone] Manjit Horvath DDS [address] [place] [address] medical clearance Social History Tobacco Use Types [...] 08/22/2024 9:00 AM EDT Clinical Support [facility] MED & PEDS [address] [place] [address] Deena Prince RN 505 [place] [address] documented as of this encounter Visit Diagnoses Not on filedocumented in this encounter Additional Health Concerns Assessment Noted Time PHQ-9 Depression Total Score: 0 12/27/19 9:36 AM EDT documented as of this encounter Care Teams Director Clinical Information Services Relationship Specialty Start Date End Date Tremaine Renee MD 505 [place] [address] PCP - General Internal Medicine 05/20/19 documented as of this encounter
--- OUTSIDE RECORDS SUMMARY | 2024-08-15 10:23 | XMS_ITS | Encounter Summary ---
Author Organization [employer] Address [address] [facility] 7 [place] [address] Care Team Providers Care Foundry Engineer Name Role Phone Tremaine Renee MD Primary Care Prov ider Reason for Visit * Reason Onset Date Comments Med Refill 08/08/2024 Encounter Details Date Type Department Care Team (Late st Contact Info) Description 08/08/2024 Refill [facility] MEDICINE [address] [place] [address] Tremaine Renee MD 505 [place] [address] Primary osteoarthritis of right knee Social History [...] enough money to get more: Never True 02/ Transportation Answer Date Recorded In the past [...] Description 08/22/2024 9:00 AM EDT Clinical Support [facility] MED & PEDS [address] [place] [address] Deena Prince, SHI [address] [place] [address] documented as of this encounter Visit Diagnoses Diagnosis Primary osteoarthritis of right knee documented in this encounter Additional Health Concerns Assessment Noted Time PHQ-9 Depression Total Score: 0 07/23/19 9:20 AM EST documented as of this encounter Care Teams Foundry Engineer Relationship Specialty Start Date End Date Tremaine Renee MD [address] [place] [address] PCP - General Internal Medicine 05/20/19 documented as of this encounter
--- OUTSIDE RECORDS SUMMARY | 2024-08-15 10:23 | XMS_ITS | Encounter Summary ---
Author Organization [employer] Address [address] [facility] 7 [place] [address] Care Team Providers Care Spotter Name Role Phone Tremaine Renee MD Primary Care Prov ider Reason for Visit * Reason Onset Date Comments Med Refill 04/11/2023 Encounter Details Date Type Department Care Team ([facility] st Contact Info) Description 04/11/2023 Telephone [facility] MEDICINE [address] [place] [address] Tremaine Renee MD [address] [place] [address] Med Refill Social History Tobacco Use Types [...] SYSTEM - [facility] MED & PEDS [address] [place] [address] Deena Prince, SHI [address] [place] [address] documented as of this encounter Visit Diagnoses Not on filedocumented in this encounter Additional Health Concerns Assessment Noted Time PHQ-9 Depression Total Score: 0 12/27/19 23 9:36 AM EDT documented as of this encounter Care Teams Spotter Relationship Specialty Start Date End Date Tremaine Renee MD [address] [place] [address] PCP - General Internal Medicine 05/20/19 documented as of this encounter
--- OUTSIDE RECORDS SUMMARY | 2024-08-15 10:23 | XMS_ITS | Encounter Summary ---
Author Organization [employer] Address [address] [facility] 7 [place] [address] Care Team Providers Care Care Professionals Name Role Phone Tremaine Renee MD Primary Care Prov ider Reason for Visit * Reason Onset Date Comments Med Refill 07/31/2023 Encounter Details Date Type Department Care Team (Late st Contact Info) Description 07/31/2023 Telephone [facility] MEDICINE [address] [place] [address] Tremaine Renee MD [address] [place] [address] Med Refill Social History Tobacco Use Types [...] sent to: [facility]/PHARMACY #[id number] - [place], [place] - [address] documented in this encounter Plan of Treatment Upcoming Encounters Date Type Department Care Team (Late st Contact Info) Description 08/22/2024 9:00 AM EDT Clinical Support [facility] CHC MED & PEDS 505 [place] [address] Deena Prince, RN 505 [place] [address] documented as of this encounter Visit Diagnoses Not on filedocumented in this encounter Additional Health Concerns Assessment Noted Time PHQ-9 Depression Total Score: 0 12/27/19 9:36 AM EDT documented as of this encounter Care Teams Care Professionals Relationship Specialty Start Date End Date Tremaine Renee MD [address] [place] [address] PCP - General Internal Medicine 05/20/19 documented as of this encounter
--- OUTSIDE RECORDS SUMMARY | 2024-08-15 10:23 | XMS_ITS | Encounter Summary ---
Author Organization [employer] Address [address] [place] [address] 7 [place] [address] Care Team Providers Care Disaster Director Name Role Phone Tremaine Renee MD Primary Care Prov ider Reason for Visit * Reason Comments Med Refill Encounter Details Date Type Department Care Team ([facility] Contact Info) Description 01/14/2023 Refill [facility] MED & PEDS [address] [place], [place] [phone] Fani Mishra MD [address] [place] [address] Primary osteoarthritis of right knee Social History [...] Upcoming Encounters Date Type Department Care Team ([facility] Contact Info) Description 08/22/2024 9:00 AM EDT Clinical Support [facility] MED & PEDS [address] [place] [address] Deena Prince RN 505 [place] [address] documented as of this encounter Visit Diagnoses Diagnosis Primary osteoarthritis of right knee documented in this encounter Additional Health Concerns Assessment Noted Time PHQ-9 Depression Total Score: 0 12/27/19 23 9:36 AM EDT documented as of this encounter Care Teams Disaster Director Relationship Specialty Start Date End Date Tremaine Renee MD 505 [facility] [place] [address] PCP - General Internal Medicine 05/20/19 documented as of this encounter
--- OUTSIDE RECORDS SUMMARY | 2024-08-15 10:23 | XMS_ITS | Encounter Summary ---
Author Organization [employer] Address [address] [facility] 7t [place] [address] Care Team Providers Care Security Investigator Name Role Phone Tremaine Renee MD Primary Care Prov ider Encounter Details Date Type Department Care Team ([facility] st Contact Info) Description 12/19/2023 Telephone [facility] CHC MED & PEDS [address] [place], [place] [phone] Tremaine Renee MD [address] [place] [address] Social History Tobacco Use Types Packs/Day Years [...] [facility] MED & PEDS [address] [place] [address] Deena Prince, SHI [address] [place] [address] documented as of this encounter Visit Diagnoses Not on filedocumented in this encounter Additional Health Concerns Assessment Noted Time PHQ-9 Depression Total Score: 0 12/27/19 23 9:36 AM EDT documented as of this encounter Care Teams Security Investigator Relationship Specialty Start Date End Date Tremaine Renee MD [address] [place] [address] PCP - General Internal Medicine 05/20/19 documented as of this encounter
--- OUTSIDE RECORDS SUMMARY | 2024-08-15 10:23 | XMS_ITS | Encounter Summary ---
Author Organization [employer] Address [address] [facility] 7t [place] [address] Care Team Providers Care Film Process Operator Name Role Phone Tremaine Renee MD Primary Care Prov ider Reason for Visit * Reason Comments Med Refill Encounter Details Date Type Department Care Team ([facility] st Contact Info) Description 07/31/2023 Refill [facility] CHC MED & PEDS [address] [place], [place] [phone] Tremaine Renee MD [address] [place] [address] Primary osteoarthritis of right knee Social History [...] Description 08/22/2024 9:00 AM EDT Clinical Support [facility] CHC MED & PEDS [address] [place] [address] Deena Prince RN [address] [place] [address] documented as of this encounter Visit Diagnoses Diagnosis Primary osteoarthritis of right knee documented in this encounter Additional Health Concerns Assessment Noted Time PHQ-9 Depression Total Score: 0 12/27/19 9:36 AM EDT documented as of this encounter Care Teams Film Process Operator Relationship Specialty Start Date End Date Tremaine Renee MD [address] [place] [address] PCP - General Internal Medicine 05/20/19 documented as of this encounter
--- OUTSIDE RECORDS SUMMARY | 2024-08-15 10:23 | XMS_ITS | Encounter Summary ---
Author Organization [employer] Address [address] [facility] 7t [place] [address] Care Team Providers Care Food Assembler Name Role Phone Tremaine Renee MD Primary Care Prov ider Reason for Visit * Reason Comments Med Refill Encounter Details Date Type Department Care Team (Late st Contact Info) Description 07/03/2023 Refill [facility] MEDICINE [address] [place] [address] Tremaine Renee MD [address] [place], [place] [phone] Primary osteoarthritis of right knee Social History [...] Description 08/22/2024 9:00 AM EDT Clinical Support [facility] CHC MED & PEDS 505 [place] [address] Deena Prince, SHI 505 [place] [address] documented as of this encounter Visit Diagnoses Diagnosis Primary osteoarthritis of right knee documented in this encounter Additional Health Concerns Assessment Noted Time PHQ-9 Depression Total Score: 0 12/27/19 9:36 AM EDT documented as of this encounter Care Teams Food Assembler Relationship Specialty Start Date End Date Tremaine Renee MD [address] [place] [address] PCP - General Internal Medicine 05/20/19 documented as of this encounter
--- OUTSIDE RECORDS SUMMARY | 2024-08-15 10:23 | XMS_ITS | Encounter Summary ---
Author Organization [employer] Address [address] [facility] 7 [place] [address] Care Team Providers Care Street Railway Line Installer Name Role Phone Tremaine Renee MD Primary Care Prov ider Encounter Details Date Type Department Care Team (Latest Contact Info) Description 07/23/2024 9:45 AM EST Telemedicine [facility] CHC MED & PEDS [address] [place], [place] [phone] Tremaine Renee MD [address] [place] [address] Screening for colon cancer (Primary Dx); Dietary counseling; Exercise counseling; Essential hypertension; Permanent atrial fibrillation (CMS/HCC); Screening for lung cancer; Mixed hyperlipidemia Social History Tobacco Use Types Packs/Day Years [...] your housing situation today? I have [employer] 07/23/[address] you li [...] AM EDT documented as of this encounter Progress Notes * Tremaine Lazaro MD - 07/23/2024 9:45 AM EST Subjective Patient ID: Zeb Mcdonald is a 68 y.o. male who presents for No chief complaint on file.. Hyperlipidemia This is a chronic problem. Exacerbating diseases include obesity. He has no history of chronic renal disease, diabetes, hypothyroidism, liver disease or nephrotic syndrome. Pertinent negatives include no chest pain, focal sensory loss, focal weakness, leg pain, myalgias or shortness of breath. Review of Systems Respiratory: Negative for shortness of breath. Cardiovascular: Negative for chest pain. Musculoskeletal: Negative for myalgias. Neurological: Negative for focal weakness. Objective Physical Exam Neurological: General: No focal deficit present. Mental Status: He is oriented to person, place, and time. Psychiatric: Mood and Affect: Mood normal. Behavior: Behavior normal. Assessment/Plan Problem List Items Addressed This Visit Atrial fibrillation (CMS/HCC) Followed by cardiology, he is on xarelto and metoprolol, no chest pain or palpitations Essential hypertension Controlled, continue low sodium diet and exercise as tolerated, labs reviewed Relevant Medications spironolactone (Aldactone) 25 MG tablet Hyperlipidemia On atorvastatin 10mg, cholesterol/ldl Screening for lung cancer Will place lung cancer screening referral Other Visit Diagnoses Screening for colon cancer - Primary Relevant Orders Cologuard?? colon cancer screening Dietary counseling Exercise counseling documented in this encounter Miscellaneous Notes * Assessment & Plan Note - Tremaine Lazaro MD - 07/23/2024 10:05 AM ESTAssociated Problem(s): Hyperlipidemia On atorvastatin 10mg, cholesterol/ldl * Assessment & Plan Note - Tremaine Lazaro MD - 07/23/2024 10:04 AM ESTAssociated Problem(s): Screening for lung cancer Will place lung cancer screening referral * Assessment & Plan Note - Tremaine Lazaro MD - 07/23/2024 10:03 AM ESTAssociated Problem(s): Essential hypertension Controlled, continue low sodium diet and exercise as tolerated, labs reviewed * Assessment & Plan Note - Tremaine Lazaro MD - 07/23/2024 10:03 AM ESTAssociated Problem(s): Atrial fibrillation (CMS/HCC) Followed by cardiology, he is on xarelto and metoprolol, no chest pain or palpitations documented in this encounter Plan of Treatment Upcoming Encounters Date Type Department Care Team (Late st Contact Info) Description 08/22/2024 9:00 AM EDT Clinical Support [facility] CHC MED & PEDS [address] [place] [address] Deena Prince, RN [address] [place] [address] Scheduled Orders Name Type Priority Associated Diagnoses Orde r Schedule Cologuard?? colon cancer screening Lab Routine Screening for colon cancer Ordered: 07/23/2024 documented as of this encounter Visit Diagnoses Diagnosis Screening for colon cancer- Primary Special screening for malignant neoplasms, colon Dietary counseling Dietary surveillance and counseling Exercise counseling Essential hypertension Unspecified essential hypertension Permanent atrial fibrillation (CMS/HCC) Atrial fibrillation Screening for lung cancer Mixed hyperlipidemia documented in this encounter Additional Health Concerns Assessment Noted Time PHQ-9 Depression Total Score: 0 07/23/19 25 9:20 AM EST documented as of this encounter Care Teams Street Railway Line Installer Relationship Specialty Start Date End Date Tremaine Renee MD [address] [place] [address] PCP - General Internal Medicine 05/20/19 documented as of this encounter
--- OUTSIDE RECORDS SUMMARY | 2024-08-15 10:23 | XMS_ITS | Encounter Summary ---
Author Organization [employer] Address [address] [facility] 7 [place] [address] Care Team Providers Care Middle School English Teacher Name Role Phone Tremaine Renee MD Primary Care Prov ider Reason for Visit * Reason Onset Date Comments chart prep 07/22/2024 Encounter Details Date Type Department Care Team ([facility] st Contact Info) Description 07/22/2024 Telephone [facility] CHC MED & PEDS [address] [place] [address] Tremaine Renee MD [address] [place] [address] chart prep Social History Tobacco Use Types Packs/Day Years [...] encounter Miscellaneous Notes * Telephone Encounter - Yisel Chou [place] - 07/22/2024 4:16 PM EST Chart Prep Labs: done Images: done Vaccines due: yes Referrals: complete Screenings: colonoscopy Overdue care gaps: Sbirt, SDOH, PHQ-9 documented in this encounter Plan of Treatment Upcoming Encounters Date Type Department Care Team (Late st Contact Info) Description 08/22/2024 9:00 AM EDT Clinical Support [facility] MED & PEDS [address] [place] [address] Deena Prince RN [address] [place] [address] documented as of this encounter Visit Diagnoses Not on filedocumented in this encounter Additional Health Concerns Assessment Noted Time PHQ-9 Depression Total Score: 0 12/27/19 23 9:36 AM EDT documented as of this encounter Care Teams Middle School English Teacher Relationship Specialty Start Date End Date Tremaine Renee MD [address] [place] [address] PCP - General Internal Medicine 05/20/19 documented as of this encounter
== END 2024-08-15 09:45 | disposition home or self-care (01) ==
LOC: HO.HOS 09:29
PROVIDERS: PCP Internal Medicine; Visit Provider Physician Assistant
DX: M17.11 Unilateral primary osteoarthritis, right knee (principal)
CPT/HCPCS: 20610; 99213

== ENCOUNTER → 2024-08-15 09:28 | Outpatient (BNVA) | payer MEDICARE, MEDICAID, SELFPAY | PROVIDERS: PCP Internal Medicine; Visit Provider Physician Assistant | DX: M17.11 Unilateral primary osteoarthritis, right knee (principal) | CPT/HCPCS: 20610; 99212; J1010; J2003 ==

== ENCOUNTER 2024-11-14 13:08 | Outpatient (AMB) | payer MEDICARE, MEDICAID, SELFPAY ==
--- NOTE | 2024-11-14 13:16 | A.OFFVIS_ITS ---
Intake Visit Reasons: right knee injection (80) , last inj 08/15/24 Intake Note: Zeb is a 69 year old male who presents today for a repeat injection for his right knee, last injection 08/15/24. Patient reports his last injection gave him relief and would like to repeat. Allergies No Known Allergies (No Known Allergies*) Allergy (Verified 11/14/24 13:34) HPI HPI right knee injection (80) , last inj 08/15/24: Details: Mr. Harry dickson is a 69-year-old male who presents to the office today for chronic right knee pain. Last cortisone injection was 08/15/2024 which gave him good relief. He would like to repeat injection while in the office today. [facility] Medical History Primary osteoarthritis of right knee Chronic diastolic (congestive) heart failure Hypertension Sleep apnea Paroxysmal atrial fibrillation Family History Mother No problems noted. Father No problems noted. Social History Alcohol intake: current Alcohol intake frequency: a few times a week Alcohol type: wine Patient Tobacco Use Status: Current everyday Tobacco user Cigarettes Per Day: 8 Years Smoked: 50 Current occupational status: retired Current occupation: Right Handed Review of Systems Const All systems reviewed & are unremarkable except as noted in HPI and below Physical Exam Const General: cooperative, healthy appearing and no acute distress Resp Effort & Inspection: normal respiratory effort and able to speak in complete sentences Extrem Other: Right knee: Normal to inspection. No ecchymosis, redness or joint effusion. Patient is able to demonstrate full knee flexion extension. Crepitus felt with knee range of motion. Negative Lanie. NVI. Office Procedures AMB Joint Injection/Aspiration Joint Injection/Aspiration Primary Site: right knee Prep: site was prepped using aseptic technique, ethochloride spray was applied and injection warnings given Injected: 80 mg of, DepoMedrol and with 8 mL of (2% plain lidocaine) Approach Used: anterolateral Procedure: The patient tolerated the procedure well, but had some pain with the injection and there was some relief with the local anesthesia Coding 83489 - Large joint Procedure code (CPT) selection complete Assessment & Plan Assessment & Plan (1) Primary osteoarthritis of right knee: Code(s): M17.11 - Unilateral primary osteoarthritis, right knee Category: Medical Plan The patient was offered a cortisone injection in the right knee with 80 mg of DepoMedrol. The patient was explained the risks, benefits, and alternatives to receiving this injection. After receiving consent for the injection, the patient had the procedure done while in the office today. The patient tolerated the procedure well with no complications. Follow-up will be p.r.n., or sooner if needed Coding Level of Care Code Est Pt Level 3 (65905) Diagnoses Primary osteoarthritis of right knee M17.11 CPT Codes Coding - 58011 Large joint: 25212 - Large joint ([id number])
== END 2024-11-14 13:33 | disposition home or self-care (01) ==
LOC: HO.HOS 13:08
PROVIDERS: PCP Internal Medicine; Visit Provider Physician Assistant
DX: M17.11 Unilateral primary osteoarthritis, right knee (principal)
CPT/HCPCS: 20610; 99213

== ENCOUNTER → 2024-11-14 13:08 | Outpatient (BNVA) | payer MEDICARE, MEDICAID, SELFPAY | PROVIDERS: PCP Internal Medicine; Visit Provider Physician Assistant | DX: M17.11 Unilateral primary osteoarthritis, right knee (principal) | CPT/HCPCS: 20610; 99212; J1010; J2003 ==

== ENCOUNTER → 2024-12-04 09:27 | Outpatient (REF) | payer MEDICARE, MEDICAID, SELFPAY ==
--- NOTE | ~2024-12-04 | NM_ITS ---
Lexiscan Myocardial perfusion study Indication: Chest pain to evaluate for myocardial ischemia Technique: The patient was brought in for a Lexiscan perfusion study on December 04, 2024 and was injected 0.4 mg of Lexiscan intravenously. Within a minute of this injection 40 mCi of sestamibi was given intravenously. Images were obtained using the SPECT gamma camera interlaced with the gating device. Images were obtained in supine position. Resting perfusion study was performed on December 05, 2024. Patient was administered 40 mCi of sestamibi intravenously at rest. Images were then obtained in supine position. Images obtained without without CT attenuation. Total DLP 79 mGy-cm Images were processed with the software and compared side to side in short axis, horizontal long axis and vertical long axis views. Findings: The stress perfusion study showed nonattenuated images show severely reduced uptake in the basal and mid inferior as well as moderately reduced uptake in the inferoapical and moderately reduced uptake in the inferolateral as well as mildly reduced uptake in the inferoseptal wall of the LV myocardium. Attenuated corrected images show mildly to moderately reduced uptake in the inferior as well as ingestion inferoseptal and inferolateral wall of the LV myocardium.. The gated study shows normal LV systolic function with calculated LVEF of 60%. LV cavity is mildly dilated in size. The gated study shows basal and mid inferior hypokinesis wall thickening and contraction of segments. Resting study shows improved uptake in the inferior as well as suggestion inferoseptal and inferolateral wall on both attenuated as well as nonattenuated images. Gating at rest reveals basal and mid inferior wall motion abnormality with ejection fraction at greater than 55%. The findings are consistent with moderately large area of mild to moderate intensity inferior and ingested inferoseptal and inferolateral ischemia in RCA territory.. NM/NM cardiolite stress test Impression: 1. Myocardial perfusion imaging study shows moderately large area of mild to moderate intensity RCA territory ischemia 2. Gated LVEF is 60% 3. Transient ischemic dilatation not present Nondiagnostic changes on EKG. Electronically signed by: Raheel York MD 12/05/2024 04:51 PM EDT
--- NOTE | 2024-12-04 09:34 | CA_ITS ---
Acquisition Time: 2024-12-04 10:54:52 Total Exercise Time: 00:02:00 Test Indications: CP AFIB Medications: SEE H&P Protocol: LEXISCAN Max HR: 76 BPM 51% of Pred: 149 BPM Max BP: 128/66 mmHG Max Work Load: 1.0 METS Pharmacological stress test with Lexiscan while pt marches in chair and moves his arm, with reports of heaache, dizziness, SOB and fatigue, without any arrythmias, with normotensive response to injection. Nondiagnostic EKG for ischemia. In recovery, pt treated with IVP Aminophylline 75 mg to reverse Lexiscan after which pt started feeling back to baseline. Nuclear images pending. Test reviewed with Dr. Hurtado. Referred By: Raheel York Electronically Signed By: Andres Nolan
--- OUTSIDE RECORDS SUMMARY | 2024-12-04 09:50 | XMS_ITS | Encounter Summary ---
Author Organization [employer] Address [address] [facility] 7 [place] [address] Care Team Providers Care Furniture Mechanic Name Role Phone Tremaine Renee MD Primary Care Prov ider Reason for Visit * Reason Onset Date Comments Med Refill 09/04/2024 Encounter Details Date Type Department Care Team (Late st Contact Info) Description 09/04/2024 Telephone [facility] MEDICINE [address] [place] [address] Tremaine Renee MD [address] [place], [place] [phone] Med Refill Social History Tobacco Use Types [...] encounter Miscellaneous Notes * Telephone Encounter - Karthik Ann - 09/04/2024 9:29 AM EDT TC from pt requesting medication refill. Medications needing refill : traMADol (Ultram) 50 MG tablet To be sent to: [facility]/pharmacy #[id number] - [place], [place] - [address] documented in this encounter Plan of Treatment Upcoming Encounters Date Type Department Care Team (Late st Contact Info) Description 01/29/2025 9:00 AM EDT Clinical Support [facility] MED & PEDS [address] [place] [address] Deena Prince RN [address] [place] [address] documented as of this encounter Visit Diagnoses Not on filedocumented in this encounter Additional Health Concerns Assessment Noted Time PHQ-9 Depression Total Score: 0 07/23/19 25 9:20 AM EST documented as of this encounter Care Teams Furniture Mechanic Relationship Specialty Start Date End Date Tremaine Renee MD [address] [place] [address] PCP - General Internal Medicine 05/20/19 documented as of this encounter
== END ==
LOC: HO.CARD 09:27
PROVIDERS: PCP Internal Medicine; Visit Provider Internal Medicine Cardiovascular Disease
DX: R07.9 Chest pain, unspecified (principal); I50.32 Chronic diastolic (congestive) heart failure; I48.0 Paroxysmal atrial fibrillation; I71.20 Thoracic aortic aneurysm, without rupture, unspecified
CPT/HCPCS: 78452; 93017; A9500; J0280; J2785

== ENCOUNTER → 2024-12-04 09:34 | Outpatient (BNV) | payer MEDICARE, MEDICAID, SELFPAY | PROVIDERS: PCP Internal Medicine | DX: R06.02 Shortness of breath (principal); R42 Dizziness and giddiness | CPT/HCPCS: 78452; 93016; 93018 ==

== ENCOUNTER 2024-12-30 07:56 | Outpatient (AMB) | payer MEDICARE, MEDICAID, SELFPAY ==
--- OUTSIDE RECORDS SUMMARY | 2024-12-30 07:58 | XMS_ITS | Encounter Summary ---
Author Organization [employer] Address [address] [facility] 7[address] [place] [address] Care Team Providers Care Personal Assistant Name Role Phone Tremaine Renee MD Primary Care Prov ider Reason for Visit * Reason Comments Med Refill Encounter Details Date Type Department Care Team (Late st Contact Info) Description 12/23/2024 Refill [facility] CHC MED & PEDS [address] [place], [place] [phone] Tala Thurman MD 505 [place] [address] Primary osteoarthritis of right knee Social History [...] Upcoming Encounters Date Type Department Care Team ([facility] st Contact Info) Description 01/29/2025 9:00 AM EDT Clinical Support [facility] CHC MED & PEDS [address] [place] [address] Deena Prince, SHI [address] [place] [address] documented as of this encounter Visit Diagnoses Diagnosis Primary osteoarthritis of right knee documented in this encounter Additional Health Concerns Assessment Noted Time PHQ-9 Depression Total Score: 0 07/23/19 25 9:20 AM EST documented as of this encounter Care Teams Personal Assistant Relationship Specialty Start Date End Date Tremaine Renee MD [address] [place] [address] PCP - General Internal Medicine 05/20/19 documented as of this encounter
[2024-12-30 08:12] VITALS: BP 118/80; PULSE 55; BMI 32.1
--- NOTE | 2024-12-30 08:12 | A.OFFVIS_ITS ---
Vital Signs 12/30/24 08:12 Height 6 ft 1 in Weight 243 lb 6.245 oz BMI 32.1 BP 118/80 Blood Pressure Location Lt brachial Position Sitting Pulse 55 Pulse Source Pulse Oximeter Intake Visit Reasons: [facility] [place] cardiac [place] (NS) Environmental Law Professor Required: No Automotive Brake Adjuster: Automotive Brake Adjuster Present Allergies lisinopril Allergy (Verified 12/30/24 08:15) Facial Swelling Medication List - Last Reconciled 12/30/24 by Jennifer Arredondo NP-C atorvastatin 80 mg PO DAILY clopidogrel (Plavix) 75 mg PO DAILY ibuprofen mg PO metoprolol tartrate 50 mg PO BID 90 days rivaroxaban (Xarelto) 20 mg PO DAILY spironolactone 25 mg PO DAILY tramadol 50 mg PO BID PRN HPI HPI [facility] [place] cardiac cath (NS): Details: Zeb is a 69-year-old male with past medical history of hypertension, hyperlipidemia, smoking, mildly dilated ascending aorta, chronic diastolic heart failure, paroxysmal atrial fibrillation, recent reports of chest discomfort with abnormal nuclear stress test followed by inferior STEMI 12/12/2024. He did have from thrombolytic therapy at [facility] and was transported to [facility] where he had cardiac catheterization showing moderate three-vessel coronary artery disease with no clear culprit lesion. He was managed medically. Today he reports that he was at [facility] last week with an episode of chest discomfort. He says he was told everything was okay. He has not had recurrent chest discomfort since then. He has been doing normal day-to-day activities and has been trying to walk each morning. He declines cardiac rehab. No shortness of breath, PND, orthopnea or edema. No heart palpitations, lightheadedness, presyncope, syncope. Compliant with meds. Has several bruises from his recent hospital visits and from echocardiogram that was done at [facility]. is present. [facility] Medical History Primary osteoarthritis of right knee Chronic diastolic (congestive) heart failure Hypertension Sleep apnea Paroxysmal atrial fibrillation Family History Mother No problems noted. Father No problems noted. Social History Alcohol intake: current Alcohol intake frequency: a few times a week Alcohol type: wine Patient Tobacco Use Status: Current everyday Tobacco user Cigarettes Per Day: 8 Years Smoked: 50 Current occupational status: retired Current occupation: Right Handed Review of Systems Const All systems reviewed & are unremarkable except as noted in HPI and below ENT Denies dizziness Card Denies chest pain, Denies chest pain at rest, Denies chest pain with activity, Denies rapid heart rate, Denies pedal edema, Denies edema, Denies leg edema, Denies lightheadedness, Denies palpitations, Denies dyspnea, Denies dyspnea on exertion and Denies orthopnea Resp Denies cough, Denies dyspnea and Denies dyspnea on exertion GI Denies hematochezia and Denies change in stool character Musc Denies abnormal gait, Denies limited range of motion, Denies muscle cramps, Denies muscle weakness, Denies numbness, Denies radiating pain into limb, Denies stiffness and Denies tingling Neuro Denies abnormal gait, Denies dizziness, Denies numbness and Denies tingling Endo Denies palpitations Physical Exam Vital Signs: Last Vital Signs Pulse 55 12/30/24 08:12 BP 118/80 12/30/24 08:12 BMI result Body Mass Index 32.1 Const General: cooperative, healthy appearing, comfortable and no acute distress Orientation/consciousness: patient oriented x3 Neck Neck: Yes normal visual inspection Resp Effort & Inspection: normal respiratory effort Auscultation: clear to auscultation bilaterally, no crackles, no rales, no rhonchi and no wheezes Cardio Rate: regular rate Rhythm: regular rhythm Heart sounds: S1 normal heart sound present, S2 normal heart sound present, no gallops, no murmurs and no rubs Neuro General: patient oriented x3 Extrem Other: right radial cath site well healed, easily palpable radial pulse and normal hand assessment General: Yes normal to inspection, No no pedal edema and No calf tenderness Psych Appearance: grossly normal Mental Status: mental status grossly normal Speech and movement: Normal speech and movement present Assessment & Plan Assessment & Plan (1) ST elevation myocardial infarction (STEMI) of inferior wall: Code(s): I21.19 - ST elevation (STEMI) myocardial infarction involving other coronary artery of inferior wall Category: Medical Plan: Inferior STEMI 12/12/2024, thrombolytic therapy at [facility]. Cardiac catheterization at [facility] 12/13/2024 showing moderate three-vessel coronary artery disease, no clear culprit lesion, medical management. He describes an episode of chest discomfort last week, will reach out to [facility] to obtain those records. Will also obtain echocardiogram results from [facility]. He declines Cardiac rehab. Continue Plavix uninterrupted 1 year. He is not on aspirin as he is on Xarelto. Continue high-dose atorvastatin with ideal LDL goal less than 70. Continue metoprolol. Signs and symptoms of angina reviewed with him. Cardiology office visit 3 months, sooner if needed. (2) S/P cardiac cath: Comment: 12/13/2024 proximal mid LAD 65% stenosis, mid circumflex 60% stenosis, proximal RCA 40% stenosis, distal portion of proximal RCA 70% stenosis, mid RCA 65% stenosis, distal RCA 60% stenosis. Code(s): Z98.890 - Other specified postprocedural states Category: Surgical Plan: Right radial catheterization site well healed (3) Paroxysmal atrial fibrillation: Code(s): I48.0 - Paroxysmal atrial fibrillation Category: Medical Plan: History of paroxysmal atrial fibrillation, treated with rhythm control. He continues on metoprolol for rate control. He is on Xarelto for anticoagulation. Pulse is regular on examination today. No recent episodes of PAF reported. (4) Chronic diastolic (congestive) heart failure: Code(s): I50.32 - Chronic diastolic (congestive) heart failure Category: Medical Plan: Stable at this time with no clinical signs of decompensated heart failure. Will obtain most recent echocardiogram from [facility]. It continues on Aldactone but does not require any other diuretics. Low-salt diet reviewed. Signs and symptoms of heart failure discussed. (5) Hypertension: Code(s): I10 - Essential (primary) hypertension Category: Medical Plan: Blood pressure goal less than 130/80. Well controlled at this time. Continue metoprolol and Aldactone. (6) Smoking trying to quit: Code(s): Z72.0 - Tobacco use Category: Social Hx Plan: Current smoker, now using patch to help with smoking cessation. Plan Time spent on chart review, documentation, interview and assessment Coding Level of Care Code Est Pt Level 4 (11991) Complex EM visit Add On G2211 Diagnoses ST elevation myocardial infarction (STEMI) of inferior wall I21.19 S/P cardiac cath Z98.890 Paroxysmal atrial fibrillation I48.0 Chronic diastolic (congestive) heart failure I50.32 Hypertension I10 Smoking trying to quit Z72.0 Time Spent (min) 32
== END 2024-12-30 08:47 | disposition home or self-care (01) ==
LOC: HO.HCS 07:56
PROVIDERS: PCP Internal Medicine; Visit Provider Nurse Practitioner Family
DX: I21.19 ST elevation (STEMI) myocardial infarction involving other coronary artery of inferior wall (principal); Z98.890 Other specified postprocedural states; I48.0 Paroxysmal atrial fibrillation; I50.32 Chronic diastolic (congestive) heart failure; I10 Essential (primary) hypertension; Z72.0 Tobacco use
CPT/HCPCS: 99214; G2211

== ENCOUNTER → 2024-12-30 07:56 | Outpatient (BNVA) | payer MEDICARE, MEDICAID, SELFPAY | PROVIDERS: PCP Internal Medicine; Visit Provider Nurse Practitioner Family | DX: I21.19 ST elevation (STEMI) myocardial infarction involving other coronary artery of inferior wall (principal); I11.0 Hypertensive heart disease with heart failure; I50.32 Chronic diastolic (congestive) heart failure; I48.0 Paroxysmal atrial fibrillation; Z98.890 Other specified postprocedural states; F17.210 Nicotine dependence, cigarettes, uncomplicated; Z71.6 Tobacco abuse counseling | CPT/HCPCS: 99212 ==

== ENCOUNTER 2025-02-13 13:09 | Outpatient (AMB) | payer MEDICARE, MEDICAID, SELFPAY ==
--- NOTE | 2025-02-13 13:12 | A.OFFVIS_ITS ---
Vital Signs 02/13/25 13:16 Height 6 ft 1 in Weight 240 lb BMI 31.7 Intake Visit Reasons: INJ-right knee injection (80) , last inj 11/14/24 Intake Note: Zeb is a 69 year old male who presents today for a repeat injection for his right knee, last injection 11/14/24. Patient reports his last injection worked really well and he would like another injection today. Flame Cutter Required: No Allergies lisinopril Allergy (Verified 02/13/25 13:18) Facial Swelling Medication List - Last Reconciled 02/13/25 by Rachael Eisenberg, RN atorvastatin 80 mg PO DAILY clopidogrel (Plavix) 75 mg PO DAILY ibuprofen mg PO isosorbide mononitrate ER 30 mg PO DAILY metoprolol tartrate 50 mg PO BID 90 days rivaroxaban (Xarelto) 20 mg PO DAILY spironolactone 25 mg PO DAILY tramadol 50 mg PO BID PRN HPI HPI INJ-right knee injection (80) , last inj 11/14/24: Details: Mr. Mcdonald is a 69-year-old male who presents to the office today for chronic right knee pain. He receives cortisone injections in the right knee every 3 months which gave him good relief. He is looking for repeat injection today. [facility] Medical History Primary osteoarthritis of right knee Chronic diastolic (congestive) heart failure Hypertension Sleep apnea Paroxysmal atrial fibrillation Family History Mother No problems noted. Father No problems noted. Social History Alcohol intake: current Alcohol intake frequency: a few times a week Alcohol type: wine Patient Tobacco Use Status: Current everyday Tobacco user Cigarettes Per Day: 8 Years Smoked: 50 Current occupational status: retired Current occupation: Right Handed Review of Systems Const All systems reviewed & are unremarkable except as noted in HPI and below Physical Exam Vital Signs: BMI result Body Mass Index 31.7 Const General: cooperative, healthy appearing and no acute distress Resp Effort & Inspection: normal respiratory effort and able to speak in complete sentences Extrem Other: Right knee: Normal to inspection. No ecchymosis, redness or joint effusion. Patient is able to demonstrate full knee flexion extension. Crepitus felt with knee range of motion. Negative Lanie. NVI. Office Procedures AMB Joint Injection/Aspiration Joint Injection/Aspiration Primary Site: right knee Prep: site was prepped using aseptic technique, ethochloride spray was applied and injection warnings given Injected: 40 mg of, with 3 mL of, 1% plain lidocaine, 0.25% bupivacaine, in the joint and decadron Approach Used: anterolateral Procedure: The patient tolerated the procedure well, but had some pain with the injection and there was some relief with the local anesthesia Coding - Large joint Procedure code (CPT) selection complete Assessment & Plan Assessment & Plan (1) Primary osteoarthritis of right knee: Code(s): M17.11 - Unilateral primary osteoarthritis, right knee Category: Medical Plan The patient was offered a cortisone injection in the right knee. The patient was explained the risks, benefits, and alternatives to receiving this injection. After receiving consent for the injection, the patient had the procedure done while in the office today. The patient tolerated the procedure well with no complications. Follow-up will be PRN, or sooner if needed Coding Level of Care Code Est Pt Level 3 (19350) Diagnoses Primary osteoarthritis of right knee M17.11 CPT Codes Coding - Large joint: 30924 - Large joint ([id number])
[2025-02-13 13:16] VITALS: BMI 31.7
--- OUTSIDE RECORDS SUMMARY | 2025-02-13 15:11 | XMS_ITS | Encounter Summary ---
Author Organization [employer] Address [address] [place] [address] 7 [place] [address] Care Team Providers Care Machined Parts Quality Inspector Name Role Phone Tremaine Renee MD Primary Care Prov ider Reason for Visit * Reason Comments Med Refill Encounter Details Date Type Department Care Team ([facility] st Contact Info) Description 06/14/2024 Refill [facility] CHC MED & PEDS [address] [place], [place] [phone] Tremaine Renee MD [address] [place], [place] [phone] Primary osteoarthritis of right knee Social History [...] Care Team (Late st Contact Info) Description 02/26/2025 1:00 PM EDT Office Visit [facility] ADULT DENTAL [address] [place] [address] Vicky Ogden DDS [address] [place] [address] 04/28/2025 9:30 AM EST Telemedicine [facility] MED & PEDS [address] [place] [address] Deena Prince, SHI [address] [place] [address] documented as of this encounter Visit Diagnoses Diagnosis Primary osteoarthritis of right knee documented in this encounter Additional Health Concerns Assessment Noted Time PHQ-9 Depression Total Score: 0 12/27/19 9:36 AM EDT documented as of this encounter Care Teams Machined Parts Quality Inspector Relationship Specialty Start Date End Date Tremaine Renee MD [address] [place] [address] PCP - General Internal Medicine 05/20/19 documented as of this encounter
--- OUTSIDE RECORDS SUMMARY | 2025-02-13 15:11 | XMS_ITS | Encounter Summary ---
Author Organization [employer] Address [address] [place] [address] 7 [place] [address] Care Team Providers Care Technical Specialist Cytology Name Role Phone Tremaine Renee MD Primary Care Prov ider Reason for Visit * Reason Comments Med Refill Encounter Details Date Type Department Care Team ([facility] st Contact Info) Description 01/21/2025 Refill [facility] CHC MED & PEDS [address] [place], [place] [phone] Tremiane Renee MD [address] [place] [address] Primary osteoarthritis of right knee Social History [...] Description 02/26/2025 1:00 PM EDT Office Visit [facility] ADULT DENTAL [address] [place] [address] Vicky Ogden DDS [address] [place] [address] 04/28/2025 9:30 AM EST Telemedicine [facility] MED & PEDS [address] [place] [address] Deena Prince, RN [address] [place] [address] documented as of this encounter Visit Diagnoses Diagnosis Primary osteoarthritis of right knee documented in this encounter Additional Health Concerns Assessment Noted Time PHQ-9 Depression Total Score: 0 07/23/19 25 9:20 AM EST documented as of this encounter Care Teams Technical Specialist Cytology Relationship Specialty Start Date End Date Tremaine Renee MD [address] [place] [address] PCP - General Internal Medicine 05/20/19 documented as of this encounter
--- OUTSIDE RECORDS SUMMARY | 2025-02-13 15:11 | XMS_ITS | Encounter Summary ---
Author Organization [employer] Address [address] [facility] 7 [place] [address] Care Team Providers Care Distance Learning Program Coordinator Name Role Phone Tremaine Renee MD Primary Care Prov ider Reason for Visit * Reason Onset Date Comments Med Refill 01/08/2024 Encounter Details Date Type Department Care Team (Late st Contact Info) Description 01/08/[address] [facility] MEDICINE [address] [place] [address] Tremaine Renee MD [address] [place], [place] [phone] Med Refill Social History Tobacco Use Types [...] tablet To be sent to: [facility]/pharmacy #[id number] - [place], [place] - [address] documented in this encounter Plan of Treatment Upcoming Encounters Date Type Department Care Team (Late st Contact Info) Description 02/26/2025 1:00 PM EDT Office Visit [facility] ADULT DENTAL [address] [place] [address] Vicky Ogden DDS [address] [place] [address] 04/28/2025 9:30 AM EST Telemedicine [facility] MED & PEDS [address] [place] [address] Deena Prince, SHI [address] [place] [address] documented as of this encounter Visit Diagnoses Not on filedocumented in this encounter Additional Health Concerns Assessment Noted Time PHQ-9 Depression Total Score: 0 12/27/19 23 9:36 AM EDT documented as of this encounter Care Teams Distance Learning Program Coordinator Relationship Specialty Start Date End Date Tremaine Renee MD [address] [place] [address] PCP - General Internal Medicine 05/20/19 documented as of this encounter
--- OUTSIDE RECORDS SUMMARY | 2025-02-13 15:11 | XMS_ITS | Encounter Summary ---
Author Organization [employer] Address [address] [facility] 7 [place] [address] Care Team Providers Care Mold Presser Name Role Phone Tremaine Renee MD Primary Care Prov ider Reason for Visit * Reason Onset Date Comments Med Refill 11/25/2024 Encounter Details Date Type Department Care Team ([facility] st Contact Info) Description 11/25/[address] [facility] MEDICINE [address] [place] [address] Tremaine Renee MD [address] [place], [place] [phone] Med Refill Social History Tobacco Use Types [...] * Telephone Encounter - Reshma Kamara - 11/25/2024 9:17 AM EDT TC from pt requesting medication refill. Medications needing refill : traMADol (Ultram) 50 MG tablet To be sent to: [facility]/pharmacy #[id number] - [place], [place] - [address] documented in this encounter Plan of Treatment Upcoming Encounters Date Type Department Care Team (Late st Contact Info) Description 02/26/2025 1:00 PM EDT Office Visit [facility] ADULT DENTAL [address] [place] [address] Vicky Ogden DDS [address] [place] [address] 04/28/2025 9:30 AM EST Telemedicine [facility] MED & PEDS [address] [place] [address] Deena Prince, SHI [address] [place] [address] documented as of this encounter Visit Diagnoses Not on filedocumented in this encounter Additional Health Concerns Assessment Noted Time PHQ-9 Depression Total Score: 0 07/23/19 9:20 AM EST documented as of this encounter Care Teams Mold Presser Relationship Specialty Start Date End Date Tremaine Renee MD [address] [place] [address] PCP - General Internal Medicine 05/20/19 documented as of this encounter
--- OUTSIDE RECORDS SUMMARY | 2025-02-13 15:11 | XMS_ITS | Encounter Summary ---
Author Organization [employer] Address [address] [facility] 7 [place] [address] Care Team Providers Care Mounter Smoking Pipe Name Role Phone Tremaine Renee MD Primary Care Prov ider Reason for Visit * Reason Onset Date Comments Med Refill 04/22/2024 Encounter Details Date Type Department Care Team ([facility] st Contact Info) Description 04/22/2024 Telephone [facility] MEDICINE [address] [place] [address] Tremaine Renee MD [address] [place], [place] [phone] Med Refill Social History Tobacco Use Types [...] 50 MG tablet To be sent to: [facility]/pharmacy #[id number] [facility] [place] documented in this encounter Plan of Treatment Upcoming Encounters Date Type Department Care Team (Late st Contact Info) Description 02/26/2025 1:00 PM EDT Office Visit [facility] ADULT DENTAL [address] [place] [address] Vicky Ogden DDS [address] [place] [address] 04/28/2025 9:30 AM EST Telemedicine [facility] MED & PEDS [address] [place] [address] Deena Prince, SHI [address] [place] [address] documented as of this encounter Visit Diagnoses Not on filedocumented in this encounter Additional Health Concerns Assessment Noted Time PHQ-9 Depression Total Score: 0 12/27/19 23 9:36 AM EDT documented as of this encounter Care Teams Mounter Smoking Pipe Relationship Specialty Start Date End Date Tremaine Renee MD [address] [place] [address] PCP - General Internal Medicine 05/20/19 documented as of this encounter
--- OUTSIDE RECORDS SUMMARY | 2025-02-13 15:11 | XMS_ITS | Encounter Summary ---
Author Organization [employer] Address [address] [facility] 7 [place] [address] Care Team Providers Care Manager Functional Name Role Phone Tremaine Renee MD Primary Care Prov ider Reason for Visit * Reason Onset Date Comments Med Refill 10/02/2024 Encounter Details Date Type Department Care Team ([facility] st Contact Info) Description 10/02/2024 Telephone [facility] MEDICINE [address] [place] [address] Tremaine Renee MD [address] [place], [place] [phone] Med Refill Social History Tobacco Use Types [...] * Telephone Encounter - Reshma Kamara - 10/02/2024 9:12 AM EDT TC from pt requesting medication refill. Medications needing refill : traMADol (Ultram) 50 MG tablet To be sent to: [facility]/pharmacy #[id number] - [place], [place] - [address] documented in this encounter Plan of Treatment Upcoming Encounters Date Type Department Care Team (Late st Contact Info) Description 02/26/2025 1:00 PM EDT Office Visit [facility] ADULT DENTAL [address] [place] [address] Vicky Ogden DDS [address] [place] [address] 04/28/2025 9:30 AM EST Telemedicine [facility] MED & PEDS [address] [place] [address] Deean Prince, SHI [address] [place] [address] documented as of this encounter Visit Diagnoses Not on filedocumented in this encounter Additional Health Concerns Assessment Noted Time PHQ-9 Depression Total Score: 0 07/23/19 9:20 AM EST documented as of this encounter Care Teams Manager Functional Relationship Specialty Start Date End Date Tremaine Renee MD [address] [place] [address] PCP - General Internal Medicine 05/20/19 documented as of this encounter
--- OUTSIDE RECORDS SUMMARY | 2025-02-13 15:11 | XMS_ITS | Encounter Summary ---
Author Organization [employer] Address [address] [place] [address] 7 [place] [address] Care Team Providers Care Splicing Technician Name Role Phone Tremaine Renee MD Primary Care Prov ider Reason for Visit * Reason Onset Date Comments Med Refill 07/11/2024 Encounter Details Date Type Department Care Team ([facility] st Contact Info) Description 07/11/2024 Refill [facility] CH[facility] MED & PEDS [address] [place], [place] [phone] Tremaine Renee MD 505 [place] [address] Primary osteoarthritis of right knee Social History [...] 1:00 PM EDT Office Visit [facility] ADULT DENTAL [address] [place] [address] Vicky Ogden DDS [address] [place] [address] 04/28/2025 9:30 AM EST Telemedicine [facility] MED & PEDS [address] [place] [address] Deena Prince, RN 505 [place] [address] documented as of this encounter Visit Diagnoses Diagnosis Primary osteoarthritis of right knee documented in this encounter Additional Health Concerns Assessment Noted Time PHQ-9 Depression Total Score: 0 12/27/19 23 9:36 AM EDT documented as of this encounter Care Teams Splicing Technician Relationship Specialty Start Date End Date Tremaine Renee MD [address] [place] [address] PCP - General Internal Medicine 05/20/19 documented as of this encounter
--- OUTSIDE RECORDS SUMMARY | 2025-02-13 15:11 | XMS_ITS | Encounter Summary ---
Author Organization [employer] Address [address] [facility] 7 [place] [address] Care Team Providers Care Toolman Name Role Phone Tremaine Renee MD Primary Care Prov ider Reason for Visit * Reason Onset Date Comments Med Refill 07/29/2022 Encounter Details Date Type Department Care Team ([facility] st Contact Info) Description 07/29/2022 Telephone [facility] MEDICINE [address] [place] [address] Tremaine Renee MD [address] [place] [address] [phone] Med Refill Social History Tobacco Use Types [...] 1:00 PM EDT Office Visit [facility] ADULT DENTAL 505 [place] [address] Vicky Ogden DDS 230 [place], [place] [phone] 04/28/2025 9:30 AM EST Telemedicine [facility] MED & PEDS [address] [place], [place] [phone] Deena Prince, RN 505 [place], [place] [phone] documented as of this encounter Visit Diagnoses Not on filedocumented in this encounter Care Teams Toolman Relationship Specialty Start Date End Date Tremaine Renee MD 505 [place] [address] PCP - General Internal Medicine 05/20/19 documented as of this encounter
--- OUTSIDE RECORDS SUMMARY | 2025-02-13 15:11 | XMS_ITS | Encounter Summary ---
Author Organization [employer] Address [address] [place] [address] 7 [place] [address] Care Team Providers Care Counseling Specialist Name Role Phone Tremaine Renee MD Primary Care Prov ider Reason for Visit * Reason Onset Date Comments Paperwork/Forms 11/23/2023 Encounter Details Date Type Department Care Team ([facility] Contact Info) Description 11/23/2023 Telephone [facility] CHC MED & PEDS [address] [place], [place] [phone] Tremaine Renee MD [address] [place] [address] Paperwork/Forms Social History Tobacco Use Types Packs/Day [...] status on medical clearance form sent by [facility] dental. Please contact pt at [phone] documented in this encounter Plan of Treatment Upcoming Encounters Date Type Department Care Team (Late st Contact Info) Description 02/26/2025 1:00 PM EDT Office Visit [facility] ADULT DENTAL [address] [place] [address] Vicky Ogden DDS 230 [place] [address] 04/28/2025 9:30 AM EST Telemedicine [facility] MED & PEDS [address] [place] [address] Deena Prince, RN 505 [place] [address] documented as of this encounter Visit Diagnoses Not on filedocumented in this encounter Additional Health Concerns Assessment Noted Time PHQ-9 Depression Total Score: 0 12/27/19 23 9:36 AM EDT documented as of this encounter Care Teams Counseling Specialist Relationship Specialty Start Date End Date Tremaine Renee MD 505 [place] [address] PCP - General Internal Medicine 05/20/19 documented as of this encounter
--- OUTSIDE RECORDS SUMMARY | 2025-02-13 15:11 | XMS_ITS | Encounter Summary ---
Author Organization [employer] Address 75 [facility] 7 [place] [address] Care Team Providers Care Client Services Vice President Name Role Phone Tremaine Renee MD Primary Care Prov ider Encounter Details Date Type Department Care Team ([facility] st Contact Info) Description 07/12/2024 Orders Only [facility] CHC MED & PEDS [address] [place], [place] [phone] Tremaine Renee MD 505 [place] [address] Social History Tobacco Use Types Packs/Day Years [...] Visit [facility] ADULT DENTAL 505 [place] [address] Vicky Ogden DDS 230 [place] [address] 04/28/2025 9:30 AM EST Telemedicine [facility] MED & PEDS 505 [place] [address] Deena Prince, SHI 505 [place] [address] documented as of this encounter Visit Diagnoses Not on filedocumented in this encounter Additional Health Concerns Assessment Noted Time PHQ-9 Depression Total Score: 0 12/27/19 23 9:36 AM EDT documented as of this encounter Care Teams Client Services Vice President Relationship Specialty Start Date End Date Tremaine Renee MD 505 [place] [address] PCP - General Internal Medicine 05/20/19 documented as of this encounter
--- OUTSIDE RECORDS SUMMARY | 2025-02-13 15:11 | XMS_ITS | Encounter Summary ---
Author Organization [employer] Address [address] [facility] 7t [place] [address] Care Team Providers Care Security Chief Museum Name Role Phone Tremaine Renee MD Primary Care Prov ider Reason for Visit * Reason Onset Date Comments medical clearance 11/17/2023 Encounter Details Date Type Department Care Team (Late st Contact Info) Description 11/17/2023 Telephone [facility] ADULT DENTAL [address] [place], [place] [phone] Manjit Horvath DDS 230 [facility] [place] [address] medical clearance Social History Tobacco Use Types [...] Description 02/26/2025 1:00 PM EDT Office Visit [facility] ADULT DENTAL 505 [place] [address] Vicky Ogden DDS 230 [place] [address] 04/28/2025 9:30 AM EST Telemedicine [facility] MED & PEDS 505 [place] [address] Deena Prince, SHI 505 [place] [address] documented as of this encounter Visit Diagnoses Not on filedocumented in this encounter Additional Health Concerns Assessment Noted Time PHQ-9 Depression Total Score: 0 12/27/19 9:36 AM EDT documented as of this encounter Care Teams Security Chief Museum Relationship Specialty Start Date End Date Tremaine Renee MD [address] [place], [place] [address] [address] PCP - General Internal Medicine 05/20/19 documented as of this encounter
--- OUTSIDE RECORDS SUMMARY | 2025-02-13 15:11 | XMS_ITS | Encounter Summary ---
Author Organization [employer] Address [address] [place] [address] 7 [place] [address] Care Team Providers Care New Media Strategist Name Role Phone Tremaine Renee MD Primary Care Prov ider Reason for Visit * Reason Comments Med Refill Encounter Details Date Type Department Care Team ([facility] st Contact Info) Description 07/01/2024 Refill [facility] CHC MED & PEDS [address] [place], [place] [phone] Tremaine Renee MD [address] [place], [place] [phone] Permanent atrial fibrillation (CMS/HCC) Social History Tobacco [...] Description 02/26/2025 1:00 PM EDT Office Visit [facility] ADULT DENTAL [address] [place] [address] Vicky Ogden DDS 230 [place] [address] 04/28/2025 9:30 AM EST Telemedicine [facility] MED & PEDS [address] [place] [address] Deena Prince, SHI 505 [place] [address] documented as of this encounter Visit Diagnoses Diagnosis Permanent atrial fibrillation (CMS/HCC) Atrial fibrillation documented in this encounter Additional Health Concerns Assessment Noted Time PHQ-9 Depression Total Score: 0 12/27/19 23 9:36 AM EDT documented as of this encounter Care Teams New Media Strategist Relationship Specialty Start Date End Date Tremaine Renee MD 505 [place] [address] PCP - General Internal Medicine 05/20/19 documented as of this encounter
--- OUTSIDE RECORDS SUMMARY | 2025-02-13 15:11 | XMS_ITS | Encounter Summary ---
Author Organization [employer] Address [address] [facility] 7 [place] [address] Care Team Providers Care Clerical Coordinator Name Role Phone Tremaine Renee MD Primary Care Prov ider Reason for Visit * Reason Onset Date Comments Med Refill 07/31/2023 Encounter Details Date Type Department Care Team (Late st Contact Info) Description 07/31/2023 Telephone [facility] MEDICINE [address] [place], [place] [phone] Tremaine Renee MD 505 [place], [place] [phone] Med Refill Social History Tobacco Use Types [...] 50 MG tablet To be sent to: [facility][id number] - [place], [place] - [address] documented in this encounter Plan of Treatment Upcoming Encounters Date Type Department Care Team (Late st Contact Info) Description 02/26/2025 1:00 PM EDT Office Visit [facility] ADULT DENTAL 505 [place] [address] Vicky Ogden DDS 230 [place] [address] 04/28/2025 9:30 AM EST Telemedicine [facility] MED & PEDS [address] [place] [address] Deena Prince, SHI 505 [place] [address] documented as of this encounter Visit Diagnoses Not on filedocumented in this encounter Additional Health Concerns Assessment Noted Time PHQ-9 Depression Total Score: 0 12/27/19 23 9:36 AM EDT documented as of this encounter Care Teams Clerical Coordinator Relationship Specialty Start Date End Date Tremaine Renee MD [address] [place] [address] PCP - General Internal Medicine 05/20/19 documented as of this encounter
--- OUTSIDE RECORDS SUMMARY | 2025-02-13 15:11 | XMS_ITS | Encounter Summary ---
Author Organization [employer] Address [address] [facility] 7 [place] [address] Care Team Providers Care Chief Recordist Name Role Phone Tremaine Renee MD Primary Care Prov ider Reason for Visit * Reason Onset Date Comments Med Refill 02/02/2024 Encounter Details Date Type Department Care Team (Late st Contact Info) Description 02/02/2024 Telephone [facility] MEDICINE [address] [place], [place] [phone] Tremaine Renee MD [address] [place], [place] [phone] Med Refill Social History Tobacco Use Types [...] sent to: [facility][id number] - [place], [place] - [address] documented in this encounter Plan of Treatment Upcoming Encounters Date Type Department Care Team (Late st Contact Info) Description 02/26/2025 1:00 PM EDT Office Visit [facility] ADULT DENTAL [address] [place] [address] Vicky Ogden DDS [address] [place] [address] 04/28/2025 9:30 AM EST Telemedicine [facility] MED & PEDS [address] [place] [address] Deena Prince, SHI 505 [place] [address] documented as of this encounter Visit Diagnoses Not on filedocumented in this encounter Additional Health Concerns Assessment Noted Time PHQ-9 Depression Total Score: 0 12/27/19 9:36 AM EDT documented as of this encounter Care Teams Chief Recordist Relationship Specialty Start Date End Date Tremaine Renee MD [address] [place] [address] PCP - General Internal Medicine 05/20/19 documented as of this encounter
--- OUTSIDE RECORDS SUMMARY | 2025-02-13 15:11 | XMS_ITS | Clinical Summary ---
Author Organization [employer] Address [address] [facility] 7[address] [place] [address] Care Team Providers Care Senior Tax Analyst Name Role Phone Tremaine Renee MD Primary Care Prov ider Allergies Active Allergy Reactions Criticality Noted Date Comments Lisinopril Other 01/29/2025 Pt reports swollen lips when he took meds last Medications naloxone (Narcan) 4 mg/0.1 mL nasal spray Administer 0.1 mL into affected nostril(s). Active albuterol 108 (90 Base) MCG/ACT inhaler INHALE 2 PUFFS EVERY 4 HOURS IF NEEDED FOR WHEEZING. 18 g 3 Active Additional Information Patient not taking.Reported on 01/29/2025 chlorhexidine (Peridex) 0.12 % solution Please use 15 ml orally as mouthwash twice daily. Swish for 60 seconds and spit. Do not rinse. 473 mL 1 Active Additional Information Patient not taking.Reported on 01/29/2025 rivaroxaban (Xarelto) 20 MG tabletIndications :Permanent atrial fibrillation (CMS/HCC) Take 1 tablet (20 mg) by mouth at bedtime. Take with food. 90 tablet 2 Active spironolactone (Aldactone) 25 MG tabletIndications :Essential hypertension Take 1 tablet (25 mg) by mouth in the morning. 90 tablet 3 025 2025 Active atorvastatin (Lipitor) 10 MG tabletIndications :Mixed hyperlipidemia TAKE 1 TABLET BY MOUTH EVERY DAY IN THE MORNING 90 tablet Active metoprolol tartrate (Lopressor) 50 MG tablet TAKE 1 TABLET BY MOUTH EVERY 12 HOURS 180 tablet 025 Active ibuprofen 400 MG tablet TAKE 1 TABLET BY MOUTH EVERY 6 HOURS IF NEEDED FOR PAIN OR FEVER 60 tablet 025 Active traMADol (Ultram) 50 MG tabletIndications :Primary osteoarthritis of right knee Take 1 tablet (50 mg) by mouth every 12 (twelve) hours if needed for severe pain. 56 tablet 025 Active clopidogrel (Plavix) 75 MG tablet Take 75 mg by mouth Once per day. Active isosorbide dinitrate (Isordil) 20 MG tablet Take 20 mg by mouth in the morning. Active traMADol (Ultram) 50 MG tabletIndications :Primary osteoarthritis of right knee Take 1 tablet (50 mg) by mouth every 12 (twelve) hours if needed for severe pain. 56 tablet 025 2024 Discontinued(R eorder (will not trigger notification to Pharmacy)) Active Problems Problem Noted Date Diagnosed Date Long-term current use of opiate analgesic 2024 Viral URI 09/14/2023 Assessment & Plan (09/14/2023 [...] years ago, will place referal for to [facility] eye care Screening for lung cancer [...] echocardiogram done past week, has appointment with information support project manager 06/17/22, on Xarelto, no reported episode of [...] Encounters Date Type Department Care Team Description 01/29/2025 9:45 AM EDT Office Visit [facility] ADULT DENTAL [address] [place] [address] Vicky Ogden DDS 01/29/2025 9:00 AM EDT Clinical Support [facility] MED & PEDS [address] [place] [address] Deena Prince RN Back pain, unspecified back location, unspecified back pain laterality, unspecified chronicity 01/29/2025 Travel 01/21/2025 Refill [facility] CHC MED & PEDS [address] [place] [address] Tremaine Renee MD Primary osteoarthritis of right knee 01/20/2025 Refill [facility] CHC MED & PEDS [address] [place] [address] Deena Prince RN Primary osteoarthritis of right knee 01/20/2025 Telephone [facility] MEDICINE [address] [place] [phone] Tremaine Renee MD Med Refill 12/23/2024 Refill [facility] CHC MED & PEDS [address] [place] [address] Tala Thurman MD Primary osteoarthritis of right knee 12/23/2024 Refill [facility] CHC MED & PEDS [address] [place] [address] Patricia Castillo MD 12/23/2024 Refill [facility] CHC MED & PEDS [address] [place] [address] Tremaine Renee MD Primary osteoarthritis of right knee 12/04/2024 Orders Only [facility] External Provider, [facility] 11/25/2024 Telephone [facility] MEDICINE [address] [place] [phone] Tremaine Renee MD Med Refill 11/24/2024 Refill [facility] CHC MED & PEDS [address] [place] [address] Tremaine Renee MD 11/24/2024 Refill [facility] CHC MED & PEDS [address] [place] [address] Fani Mishra MD Primary osteoarthritis of right knee 11/24/2024 Refill [facility] CHC MED & PEDS [address] [place] [address] Tala Thurman MD 11/13/2024 Telephone [facility] CHC MED & PEDS [address] [place] [address] Tremaine Renee MD Results; Referral 11/13/2024 Telephone [facility] MED & PEDS [address] [place] [address] Tremaine Renee MD Results; Referral from Last 3 Months Immunizations Immunization Administration Dates Next Due Influenza High-dose Quadriva [...] Tobacco: Never Tobacco Cessation:Ready to Q uit: Not Asked; Counseling Given: Not Answered Alcohol Use Standard Drinks/Week Comments Yes 0 (1 standard drink = 0.6 oz pur e alcohol) occasional Depression Answer Date Recorded Patient Health Questionnaire-9 Score 0 07/23/2024 Patient Health Questionnaire-9 Score 0 07/23/2024 Last PHQ-9: Questionnaire Data Not on file 0 07/23/2024 Housing Stability Answer Date Recorded What is your housing situation today? I have austinlyla rinaldi 07/23/[address] you [...] 80 04/18/2024 11:17 AM EST Temperature 36.2 C (97.2 F) 04/18/2024 11:17 AM EST Respiratory Rate 20 04/18/2024 11:17 AM EST [...] Description 02/26/2025 1:00 PM EDT Office Visit [facility] ADULT DENTAL [address] [place] [address] Vicky Ogden DDS [address] [place] [address] 04/28/2025 9:30 AM EST Telemedicine [facility] MED & PEDS [address] [place] [address] Deena Prince, RN [address] [place] [address] Health Maintenance Due Date Last Done Comments CT Colonography 1955 Colonoscopy 1955 Dental X-Ray: Full Mouth 1955 FIT 1955 Sigmoidoscopy 1955 Lung Cancer Screening 10/10/2003 Dental Oral Exam 08/21/2024 02/21/2024 Dental Prophylaxis 08/21/2024 02/21/2024 Dental X-Ray: Bitewings 10/26/2024 10/26/2023 COVID-19 Vaccine ( season) 2025 05/17/2022, 03/25/2021, 09/06/2020, Additional history exists Influenza Vaccine (#1) 2025 , 04/08/2021, 04/14/2020, Additional history exists Alcohol/Substance Use Screening 07/23/2025 07/23/2024 Depression Screening 07/23/2025 07/23/2024, 07/23/19 SDOH Screening 07/23/2025 07/23/2024 FOBT 09/25/2025 09/25/2024 Tobacco Screening 01/29/2026 01/29/2025 DTaP/Tdap/Td Vaccines (2 - Td or Tdap) 05/09/2026 05/09/2016 Colorectal Cancer Screening 09/26/2027 FIT DNA/Cologuard 09/26/2027 09/25/2024 RSV Patients and Patients Aged 60 years [...] patient's age to complete this topic Meningococcal B Vaccine Aged Out No l onger eligible based on patient's age to complete [...] Procedure Name Priority Date/Time Associated Diagnosis Comments CONSULTATION - DIAGNOSTIC SERVICE PROVIDED BY DENTIST OR PHYSICIAN OTHER THAN REQUESTING DENTIST OR PHYSICIAN Routine 01/29/2025 9:45 AM EDT CASE PRESENTATION, DETAILED AND EXTENSIVE TREATMENT PLANNING Routine 01/29/2025 9:45 AM EDT POCT MARIBELL-14 URINE DRUG SCREEN Routine 01/29/2025 9:07 AM EDT Back pain, unspecified back location, unspecified back pain laterality, unspecified chronicity STRESS TEST WITH MYOCARDIAL PERFUSION Routine 12/04/2024 10:12 AM EDT LAB COLOGUARD COLON CANCER SCREEN Routine 09/25/2024 8:30 AM EDT Screening for colon cancer LIPID PANEL, STANDARD Routine 07/16/2024 9:18 AM [...] Relevant to Health Maintenance Results * POCT MARIBELL-14 Urine Drug Screen (01/29/2025 9:07 AM EDT) THC Negative Negative Cocaine Screen, Urine Negative Negative Opiate Screen, Urine Negative Negative Methamphetamine Screen Urine Negative Negative Amphetamine Screen, Urine Negative Negative Benzodiazepines Screen, Urine Negative Negative Barbiturate Screen, Urine Negative Negative Methadone Screen, Urine Negative Negative Buprenophine Screen, Urine Negative Negative TCA, Urine Negative Negative MDMA Urine Negative Negative ng/mL Oxycodone Screen, Urine Negative Negative Phencyclidine (PCP), Urine Negative Negative Propoxyphene, Urine Negative Negative Fentanyl, Urine Negative Negative Urine Urine specimen obtained by clean catch procedure / Unknown 01/29/2025 9:07 AM EDT Narrative [facility] - 01/29/2025 9:07 AM EDT Internal Pass Control Lot# [id number] Exp: 03-28-26 Tremaine Lazaro MD POINT OF CARE TEST ENTER/EDIT ORDERABLES Final Result * Stress test with myocardial perfusion (12/04/2024 10:12 AM EDT) 12/04/2024 10:1 2 AM EDT Narrative [facility] - 12/05/2024 4:54 PM EDT [place] [address] Nuclear Medicine Report Signed Patient: Zeb Mcdonald MR#: [id number] : 1955 Acct:[id number] Age/Sex: 69 / M ADM Date: 12/04/24 [facility]: Raheel York MD Ordering Physician: Raheel York MD Date of Service: 12/04/24 Procedure(s): NM cardiolite stress test Accession Number(s): [id number] cc: Tremaine Renee MD; Raheel York MD Lexiscan Myocardial perfusion study Indication: Chest pain to evaluate for myocardial ischemia Technique: The patient was brought in for a Lexiscan perfusion study on December 04, 2024 and was injected 0.4 mg of Lexiscan intravenously. Within a minute of this injection 40 mCi of sestamibi was given intravenously. Images were obtained using the SPECT gamma camera interlaced with the gating device. Images were obtained in supine position. Resting perfusion study was performed on December 05, 2024. Patient was administered 40 mCi of sestamibi intravenously at rest. Images were then obtained in supine position. Images obtained without without CT attenuation. Total DLP 79 mGy-cm Images were processed with the software and compared side to side in short axis, horizontal long axis and vertical long axis views. Findings: The stress perfusion study showed nonattenuated images show severely reduced uptake in the basal and mid inferior as well as moderately reduced uptake in the inferoapical and moderately reduced uptake in the inferolateral as well as mildly reduced uptake in the inferoseptal wall of the LV myocardium. Attenuated corrected images show mildly to moderately reduced uptake in the inferior as well as ingestion inferoseptal and inferolateral wall of the LV myocardium.. The gated study shows normal LV systolic function with calculated LVEF of 60%. LV cavity is mildly dilated in size. The gated study shows basal and mid inferior hypokinesis wall thickening and contraction of segments. Resting study shows improved uptake in the inferior as well as suggestion inferoseptal and inferolateral wall on both attenuated as well as nonattenuated images. Gating at rest reveals basal and mid inferior wall motion abnormality with ejection fraction at greater than 55%. The findings are consistent with moderately large area of mild to moderate intensity inferior and ingested inferoseptal and inferolateral ischemia in RCA territory.. NM/NM cardiolite stress test Impression: 1. Myocardial perfusion imaging study shows moderately large area of mild to moderate intensity RCA territory ischemia 2. Gated LVEF is 60% 3. Transient ischemic dilatation not present Nondiagnostic changes on EKG. Electronically signed by: Raheel York MD 12/05/2024 04:51 PM EDT Dictated By: Raheel York MD Signed By: <Electronically signed by Raheel York MD in OV> 12/05/24 1651 DD/ 1012 TD/TT: 12/05/24 1230 Taxicab Driver: Procedure Note Donotuseinterpreter, Image - 12/05/2024 [place] [address] Nuclear Medicine Report Signed Patient: Adilene Mcdonald#: [id number] : 4Acct:[id number] Age/Sex: 69 / MADM Date: 12/04/24 Loc: [facility] Attending Dr: Raheel York MD Ordering Physician: Raheel York MD Date of Service: 12/04/24 Procedure(s): NM cardiolite stress test Accession Number(s): [id number] cc: Tremaine Renee MD; Raheel York MD Lexiscan Myocardial perfusion study Indication: Chest pain to evaluate for myocardial ischemia Technique: The patient was brought in for a Lexiscan perfusion study on December 04, 2024 and was injected 0.4 mg of Lexiscan intravenously. Within a minute of this injection 40 mCi of sestamibi was given intravenously. Images were obtained using the SPECT gamma camera interlaced with the gating device. Images were obtained in supine position. Resting perfusion study was performed on December 05, 2024. Patient was administered 40 mCi of sestamibi intravenously at rest. Images were then obtained in supine position. Images obtained without without CT attenuation. Total DLP 79 mGy-cm Images were processed with the software and compared side to side in short axis, horizontal long axis and vertical long axis views. Findings: The stress perfusion study showed nonattenuated images show severely reduced uptake in the basal and mid inferior as well as moderately reduced uptake in the inferoapical and moderately reduced uptake in the inferolateral as well as mildly reduced uptake in the inferoseptal wall of the LV myocardium. Attenuated corrected images show mildly to moderately reduced uptake in the inferior as well as ingestion inferoseptal and inferolateral wall of the LV myocardium.. The gated study shows normal LV systolic function with calculated LVEF of 60%. LV cavity is mildly dilated in size. The gated study shows basal and mid inferior hypokinesis wall thickening and contraction of segments. Resting study shows improved uptake in the inferior as well as suggestion inferoseptal and inferolateral wall on both attenuated as well as nonattenuated images. Gating at rest reveals basal and mid inferior wall motion abnormality with ejection fraction at greater than 55%. The findings are consistent with moderately large area of mild to moderate intensity inferior and ingested inferoseptal and inferolateral ischemia in RCA territory.. NM/NM cardiolite stress test Impression: 1. Myocardial perfusion imaging study shows moderately large area of mild to moderate intensity RCA territory ischemia 2. Gated LVEF is 60% 3. Transient ischemic dilatation not present Nondiagnostic changes on EKG. Electronically signed by: Raheel York MD 12/05/2024 04:51 PM EDT Dictated By: Raheel York MD Signed By: <Electronically signed by Raheel York MD in OV> 12/05/24 1651 DD/ 1012 TD/TT: 12/05/24 1230 Taxicab Driver: us [facility] External Provider CV STRE SS PROCEDURES Edited Result - Final [facility] [address] [place] [address] * (ABNORMAL) Cologuard?? colon cancer screening (09/25/2024 8:30 AM EDT) Cologuard Result Positive( A) Negative 10/03/2024 4:48 PM EDT [employer] (CLIA #:[id number]) Comment: The Cologuard Plus (TM) test was performed on this specimen. POSITIVE TEST RESULT. A positive (abnormal) Cologuard Plus result means the patient has a oiaxeb-eioq-suxoxhm chance of having colorectal cancer (CRC) or precancer (polyps or lesions that could become cancer). The normal value (reference range) for this assay is negative. A positive result should be followed by a colonoscopy to locate and confirm the presence of cancer or precancer. A positive Cologuard Plus result is not a cancer diagnosis. The federal government now considers the colonoscopy following a positive Cologuard Plus test result a covered preventive service. Call for more information. A clinical validation study measured the effectiveness of the Cologuard Plus test. Out of 100 patients testing positive: approximately 3 patients will have CRC; 34 patients will have advanced precancer; 33 will have a non-advanced precancer; and 30 will have no cancer or precancer. TEST DESCRIPTION: The Cologuard Plus test is a multi-target stool DNA (mt-sDNA) test that analyzes DNA and hemoglobin biomarkers in stool. It uses a proprietary algorithm to qualitatively detect CRC and advanced precancer. It is FDA-approved and indicated for use in adults 45 years or older at average risk for CRC. A positive (abnormal) result should be followed by a colonoscopy. Patients with a negative (normal) result should screen again in 3 years. False positive and false negative results may occur. The USPSTF recommends the Cologuard test as a CRC screening option. Their modeling estimates that screening with the test every 3 years from ages 45-85 could prevent up to 73% of CRC and avoid up to 85% of CRC deaths. A 18,911-patient clinical trial found the Cologuard Plus test effectively detects CRC and precancer. The study found the test was 95% sensitive for CRC, 43% sensitive for advanced precancer, and had a 91% specificity (Cologuard Plus Clinician Brochure. [employer]. [place], [place].). Visit www.[employer]JackBe/about/oslqrkwt-bbidvwbrfkt-gfrdgfnlckp for more test information, references, warnings, and precautions. Stool specimen (specimen) 09/25/2024 8:30 AM EDT 09/26/2024 10:39 AM EDT Tremaine Lazaro MD LAB MOLECULAR DIAG NOSTICS ORDERABLES Final Result [employer] (CLIA #:[id number]) [address] [place] [address], * (ABNORMAL) Lipid Panel, Standard (07/16/2024 9:18 AM EST) Triglycerides 77 <150 mg/dL [facility] Comment:Desirable Triglyceri de: less than 150 mg/dLBorderline High Triglyceride 150-199 mg/dLHigh Triglyceride: 200-499 mg/dLVery High Triglyceride: greater than or equal to 5OO mg/dL Cholesterol 169 <200 mg/dL [facility] Comment:Desirable Cholestero l: less than 200 mg/dLBorderline High Cholesterol: 200-239 mg/dLHigh Cholesterol: greater than 239 mg/dL LDL Cholesterol Calculated 109(H) <100 mg/dL [facility] Comment:Desirable LDL: less than 100 mg/dLNear Optimal/Above Optimal LDL: 110- 129 mg/dLBorderline High LDL: 130-159 mg/dLHigh LDL: 160-189 mg/dLVery High LDL: greater than or equal to 190 mg/dL HDL Cholesterol 45 >40 mg/dL [facility] Comment:Desirable HDL: great er than 40 mg/dL Note: This HDL assay may give artificially low results in patients with liver disease. Blood Venous blood specimen / Unknown 07/16/2024 9:18 AM EST 07/16/2024 2:14 PM EST Tremaine aLzaro MD LAB BLOOD ORDERABL ES Final Result Performing Organization Address [facility] Co de Phone Number [facility] [address] [place] [address] [phone] * (ABNORMAL) Hepatitis C Antibody with Reflex to HCV, RNA, Quantitative, Real- Time PCR (02/21/2023 9:59 AM EDT) Hepatitis C Antibody Reactive( A) Nonreactive [facility] Comment:Presumptive evidence of antibodies to HCV. 02/21/2023 9:59 AM EDT 02/21/2023 2:50 PM EDT Tremaine Lazaro MD LAB BLOOD ORDERABL ES Final Result Performing Organization Address [facility] de Phone Number [facility] [address] [place] [phone] from Last 3 Months or Most Recently Relevant to Health Maintenance Insurance [facility]ANDARD MEDICARE DENTAL - HSN FULL (MEDICAID) Care Teams Senior Tax Analyst Relationship Specialty Start Date End Date Tremaine Renee MD [address] [place] [phone] PCP - General Internal Medicine 05/20/19
--- OUTSIDE RECORDS SUMMARY | 2025-02-13 15:11 | XMS_ITS | Encounter Summary ---
Author Organization [employer] Address [address] [facility] [address] [place] [address] Care Team Providers Care Farm Laborer Name Role Phone Tremaine Renee MD Primary Care Prov ider Reason for Visit * Reason Comments Med Refill Encounter Details Date Type Department Care Team (Late st Contact Info) Description 12/23/2024 Refill [facility] CHC MED & PEDS [address] [place], [place] [phone] Tala Thurman MD [address] [place] [address] Primary osteoarthritis of right knee Social History [...] Upcoming Encounters Date Type Department Care Team ([facility] st Contact Info) Description 02/26/2025 1:00 PM EDT Office Visit [facility] ADULT DENTAL [address] [place] [address] Vicky Ogden DDS [address] [place] [address] 04/28/2025 9:30 AM EST Telemedicine [facility] MED & PEDS [address] [place] [address] Deena Prince, RN [address] [place] [address] documented as of this encounter Visit Diagnoses Diagnosis Primary osteoarthritis of right knee documented in this encounter Additional Health Concerns Assessment Noted Time PHQ-9 Depression Total Score: 0 07/23/19 25 9:20 AM EST documented as of this encounter Care Teams Farm Laborer Relationship Specialty Start Date End Date Tremaine Renee MD [address] [place] [address] PCP - General Internal Medicine 05/20/19 documented as of this encounter
--- OUTSIDE RECORDS SUMMARY | 2025-02-13 15:11 | XMS_ITS | Encounter Summary ---
Author Organization [employer] Address [address] [place] [address] 7 [place] [address] Care Team Providers Care Jewel Setter Name Role Phone Tremaine Renee MD Primary Care Prov ider Reason for Visit * Reason Comments Med Refill Encounter Details Date Type Department Care Team ([facility] st Contact Info) Description 08/28/2023 Refill [facility] CHC MED & PEDS [address] [place], [place] [phone] Tremaine Renee MD [address] [place], [place] [phone] Primary osteoarthritis of right knee Social History [...] 1:00 PM EDT Office Visit [facility] ADULT DENTAL [address] [place] [address] Vicky Ogden DDS [address] [place] [address] 04/28/2025 9:30 AM EST Telemedicine [facility] MED & PEDS [address] [place] [address] Deena Prince, SHI [address] [place] [address] documented as of this encounter Visit Diagnoses Diagnosis Primary osteoarthritis of right knee documented in this encounter Additional Health Concerns Assessment Noted Time PHQ-9 Depression Total Score: 0 12/27/19 9:36 AM EDT documented as of this encounter Care Teams Jewel Setter Relationship Specialty Start Date End Date Tremaine Renee MD [address] [place] [address] PCP - General Internal Medicine 05/20/19 documented as of this encounter
--- OUTSIDE RECORDS SUMMARY | 2025-02-13 15:11 | XMS_ITS | Encounter Summary ---
Author Organization [employer] Address [address] [facility] 7 [place] [address] Care Team Providers Care Glass Production Machine Operator Name Role Phone Tremaine Renee MD Primary Care Prov ider Reason for Visit * Reason Comments Med Refill Encounter Details Date Type Department Care Team (Late st Contact Info) Description 06/03/2023 Refill [facility] MEDICINE [address] [place] [address] Tremaine Renee MD [address] [place], [place] [phone] Primary osteoarthritis of right knee Social History [...] 1:00 PM EDT Office Visit [facility] ADULT DENTAL [address] [place] [address] Vicky Ogden DDS [address] [place] [address] 04/28/2025 9:30 AM EST Telemedicine [facility] MED & PEDS [address] [place] [address] Deena Prince, SHI [address] [place] [address] documented as of this encounter Visit Diagnoses Diagnosis Primary osteoarthritis of right knee documented in this encounter Additional Health Concerns Assessment Noted Time PHQ-9 Depression Total Score: 0 12/27/19 23 9:36 AM EDT documented as of this encounter Care Teams Glass Production Machine Operator Relationship Specialty Start Date End Date Tremaine Renee MD [address] [place] [address] PCP - General Internal Medicine 05/20/19 documented as of this encounter
--- OUTSIDE RECORDS SUMMARY | 2025-02-13 15:11 | XMS_ITS | Encounter Summary ---
Author Organization [employer] Address 75 [facility] 7 [place] [address] Care Team Providers Care Transmission Inspector Name Role Phone Tremaine Renee MD Primary Care Prov ider Reason for Visit * Reason Onset Date Comments Med Refill 09/04/2024 Encounter Details Date Type Department Care Team (Late st Contact Info) Description 09/04/[address] [facility] MEDICINE 230 [place] [address] Tremaine Renee MD 505 [place], [place] [phone] Med Refill Social History Tobacco Use Types [...] 50 MG tablet To be sent to: [facility]/pharmacy #[id number] - [place], [place] - [address] documented in this encounter Plan of Treatment Upcoming Encounters Date Type Department Care Team (Late st Contact Info) Description 02/26/2025 1:00 PM EDT Office Visit [facility] ADULT DENTAL 505 [place] [address] Vicky Ogden DDS 230 [place] [address] 04/28/2025 9:30 AM EST Telemedicine [facility] MED & PEDS 505 [place] [address] Deena Prince RN 505 [place] [address] documented as of this encounter Visit Diagnoses Not on filedocumented in this encounter Additional Health Concerns Assessment Noted Time PHQ-9 Depression Total Score: 0 07/23/19 25 9:20 AM EST documented as of this encounter Care Teams Transmission Inspector Relationship Specialty Start Date End Date DohertyTremaine Hawkins MD [address] [place] [address] PCP - General Internal Medicine 05/20/19 documented as of this encounter
--- OUTSIDE RECORDS SUMMARY | 2025-02-13 15:11 | XMS_ITS | Encounter Summary ---
Author Organization [employer] Address [address] [place] [address] 7 [place] [address] Care Team Providers Care Airplane Gas Tank Liner Assembler Name Role Phone Tremaine Renee MD Primary Care Prov ider Reason for Visit * Reason Onset Date Comments Med Refill 07/08/2024 Encounter Details Date Type Department Care Team ([facility] st Contact Info) Description 07/08/2024 Refill [facility] CHC MED & PEDS 505 [place], [place] [phone] Tremaine Renee MD 505 [place] [address] Permanent atrial fibrillation (CMS/HCC) Social History Tobacco [...] Description 02/26/2025 1:00 PM EDT Office Visit [facility] ADULT DENTAL 505 [place] [address] Vicky Ogden DDS 230 [place] [address] 04/28/2025 9:30 AM EST Telemedicine [facility] MED & PEDS 505 [place] [address] Deena Prince, RN 505 [place] [address] documented as of this encounter Visit Diagnoses Diagnosis Permanent atrial fibrillation (CMS/HCC) Atrial fibrillation documented in this encounter Additional Health Concerns Assessment Noted Time PHQ-9 Depression Total Score: 0 12/27/19 23 9:36 AM EDT documented as of this encounter Care Teams Airplane Gas Tank Liner Assembler Relationship Specialty Start Date End Date Tremaine Renee MD 505 [place] [address] PCP - General Internal Medicine 05/20/19 documented as of this encounter
--- OUTSIDE RECORDS SUMMARY | 2025-02-13 15:11 | XMS_ITS | Encounter Summary ---
Author Organization [employer] Address [address] [place] [address] 7 [place] [address] Care Team Providers Care Ton Cylinder Inspector Name Role Phone Tremaine Renee MD Primary Care Prov ider Reason for Visit * Reason Comments Med Refill Encounter Details Date Type Department Care Team ([facility] st Contact Info) Description 07/31/2023 Refill [facility] CHC MED & PEDS 505 [place], [place] [phone] Tremaine Renee MD 505 [place], [place] [phone] Primary osteoarthritis of right knee Social History [...] 1:00 PM EDT Office Visit [facility] ADULT DENTAL 505 [place] [address] Vicky Ogden DDS 230 [place] [address] 04/28/2025 9:30 AM EST Telemedicine [facility] MED & PEDS 505 [place] [address] Deena Prince, SHI 505 [place] [address] documented as of this encounter Visit Diagnoses Diagnosis Primary osteoarthritis of right knee documented in this encounter Additional Health Concerns Assessment Noted Time PHQ-9 Depression Total Score: 0 12/27/19 9:36 AM EDT documented as of this encounter Care Teams Ton Cylinder Inspector Relationship Specialty Start Date End Date Tremaine Renee MD 505 [place] [address] PCP - General Internal Medicine 05/20/19 documented as of this encounter
--- OUTSIDE RECORDS SUMMARY | 2025-02-13 15:11 | XMS_ITS | Encounter Summary ---
Author Organization [employer] Address 75 [facility] 7 [place] [address] Care Team Providers Care Wax Room Supervisor Name Role Phone Tremaine Renee MD Primary Care Prov ider Reason for Visit * Reason Onset Date Comments Med Refill 04/11/2023 Encounter Details Date Type Department Care Team ([facility] st Contact Info) Description 04/11/2023 Telephone [facility] MEDICINE 230 [place] [address] Tremaine Renee MD 505 [place], [place] [phone] Med Refill Social History Tobacco Use Types [...] [facility] 505 [place] [address] Vicky Ogden DDS 230 [place] [address] 04/28/2025 9:30 AM EST Telemedicine [facility] MED & PEDS 505 [place] [address] Deena Prince, RN 505 [place] [address] documented as of this encounter Visit Diagnoses Not on filedocumented in this encounter Additional Health Concerns Assessment Noted Time PHQ-9 Depression Total Score: 0 12/27/19 23 9:36 AM EDT documented as of this encounter Care Teams Wax Room Supervisor Relationship Specialty Start Date End Date Tremaine Renee MD 505 [place] [address] PCP - General Internal Medicine 05/20/19 documented as of this encounter
--- OUTSIDE RECORDS SUMMARY | 2025-02-13 15:11 | XMS_ITS | Encounter Summary ---
Author Organization [employer] Address 75 [facility] 7t [place] [address] Care Team Providers Care Fiscal Services Manager Name Role Phone Tremaine Renee MD Primary Care Prov ider Encounter Details Date Type Department Care Team ([facility] st Contact Info) Description 12/19/2023 Telephone [facility] CHC MED & PEDS 505 [place], [place] [phone] Tremaine Renee MD 505 [place] [address] Social History Tobacco Use Types Packs/Day Years [...] 1:00 PM EDT Office Visit [facility] ADULT DENTAL 505 [place] [address] Vicky Ogden DDS 230 [place] [address] 04/28/2025 9:30 AM EST Telemedicine [facility] MED & PEDS 505 [place] [address] Deena Prince, SHI 505 [place] [address] documented as of this encounter Visit Diagnoses Not on filedocumented in this encounter Additional Health Concerns Assessment Noted Time PHQ-9 Depression Total Score: 0 12/27/19 23 9:36 AM EDT documented as of this encounter Care Teams Fiscal Services Manager Relationship Specialty Start Date End Date Tremaine Renee MD 505 [place] [address] PCP - General Internal Medicine 05/20/19 documented as of this encounter
--- OUTSIDE RECORDS SUMMARY | 2025-02-13 15:11 | XMS_ITS | Encounter Summary ---
Author Organization [employer] Address 75 [facility] 7 [place] [address] Care Team Providers Care Zinc Plating Machine Operator Name Role Phone Tremaine Renee MD Primary Care Prov ider Reason for Visit * Reason Onset Date Comments Med Refill 01/20/2025 Encounter Details Date Type Department Care Team ([facility] st Contact Info) Description 01/20/[address] [facility] MEDICINE 230 [place] [address] Tremaine Renee MD 505 [place], [place] [phone] Med Refill Social History Tobacco Use Types [...] encounter Miscellaneous Notes * Telephone Encounter - Colleen Pacheco - 01/20/2025 10:42 AM EDT TC from pt requesting medication refill. Medications needing refill : - traMADol (Ultram) 50 MG tablet To be sent to: - [facility]/pharmacy #[id number] [place], [place] - [address] documented in this encounter Plan of Treatment Upcoming Encounters Date Type Department Care Team ([facility] st Contact Info) Description 02/26/2025 1:00 PM EDT Office Visit [facility] ADULT DENTAL 505 [place] [address] iVcky Ogden DDS 230 [place] [address] 04/28/2025 9:30 AM EST Telemedicine [facility] MED & PEDS 505 [place] [address] Deena Prince, SHI 505 [place] [address] documented as of this encounter Visit Diagnoses Not on filedocumented in this encounter Additional Health Concerns Assessment Noted Time PHQ-9 Depression Total Score: 0 07/23/19 9:20 AM EST documented as of this encounter Care Teams Zinc Plating Machine Operator Relationship Specialty Start Date End Date Tremaine Renee MD [address] [place] [address] PCP - General Internal Medicine 05/20/19 documented as of this encounter
--- OUTSIDE RECORDS SUMMARY | 2025-02-13 15:11 | XMS_ITS | Encounter Summary ---
Author Organization [employer] Address [address] [place] [address] 7 [place] [address] Care Team Providers Care Pulp Press Tender Name Role Phone Tremaine Renee MD Primary Care Prov ider Reason for Visit * Reason Onset Date Comments Med Refill 06/13/2024 Encounter Details Date Type Department Care Team ([facility] st Contact Info) Description 06/13/2024 Refill [facility] CHC MED & PEDS 505 [place], [place] [phone] Tremaine Renee MD 505 [place] [address] Primary osteoarthritis of right knee Social History [...] Visit [facility] ADULT DENTAL 505 [place] [address] Vicky Ogden DDS 230 [place] [address] 04/28/2025 9:30 AM EST Telemedicine [facility] MED & PEDS 505 [place] [address] Deena Prince, RN 505 [place] [address] documented as of this encounter Visit Diagnoses Diagnosis Primary osteoarthritis of right knee documented in this encounter Additional Health Concerns Assessment Noted Time PHQ-9 Depression Total Score: 0 12/27/19 23 9:36 AM EDT documented as of this encounter Care Teams Pulp Press Tender Relationship Specialty Start Date End Date Tremaine Renee MD 505 [place] [address] PCP - General Internal Medicine 05/20/19 documented as of this encounter
--- OUTSIDE RECORDS SUMMARY | 2025-02-13 15:11 | XMS_ITS | Encounter Summary ---
Author Organization [employer] Address [address] [place] [address] 7 [place] [address] Care Team Providers Care Time Motion Analyst Name Role Phone Tremaine Renee MD Primary Care Prov ider Reason for Visit * Reason Onset Date Comments Med Refill 07/03/2024 Encounter Details Date Type Department Care Team ([facility] st Contact Info) Description 07/03/2024 Refill [facility] CHC MED & PEDS 505 [place], [place] [phone] Tremaine Renee MD 505 [place] [address] Permanent atrial fibrillation (CMS/HCC) Social History Tobacco [...] Visit [facility] ADULT DENTAL 505 [place] [address] Vicky Ogden DDS 230 [place] [address] 04/28/2025 9:30 AM EST Telemedicine [facility] MED & PEDS 505 [place] [address] Deena Prince, RN 505 [place] [address] documented as of this encounter Visit Diagnoses Diagnosis Permanent atrial fibrillation (CMS/HCC) Atrial fibrillation documented in this encounter Additional Health Concerns Assessment Noted Time PHQ-9 Depression Total Score: 0 12/27/19 23 9:36 AM EDT documented as of this encounter Care Teams Time Motion Analyst Relationship Specialty Start Date End Date Tremaine Renee MD 505 [place] [address] PCP - General Internal Medicine 05/20/19 documented as of this encounter
--- OUTSIDE RECORDS SUMMARY | 2025-02-13 15:12 | XMS_ITS | Encounter Summary ---
Author Organization [employer] Address [address] [place] [address] 7 [place] [address] Care Team Providers Care Almond Paste Mixer Name Role Phone Tremaine Renee MD Primary Care Prov ider Reason for Visit * Reason Comments Med Refill Encounter Details Date Type Department Care Team ([facility] Contact Info) Description 01/14/2023 Refill [facility] MED & PEDS 505 [place], [place] [phone] Fani Mishra MD 505 [place], [place] [phone] Primary osteoarthritis of right knee Social History [...] Encounters Date Type Department Care Team (Late Contact Info) Description 02/26/2025 1:00 PM EDT Office Visit [facility] ADULT DENTAL 505 [place], [place] [phone] Vicky Ogden DDS 230 [place], [place] [phone] 04/28/2025 9:[address] [facility] CHC MED & PEDS 505 [place] [address] Deena Prince, SHI 505 [place] [address] documented as of this encounter Visit Diagnoses Diagnosis Primary osteoarthritis of right knee documented in this encounter Additional Health Concerns Assessment Noted Time PHQ-9 Depression Total Score: 0 12/27/19 9:36 AM EDT documented as of this encounter Care Teams Almond Paste Mixer Relationship Specialty Start Date End Date Tremaine Renee MD 505 [place] [address] PCP - General Internal Medicine 05/20/19 documented as of this encounter
--- OUTSIDE RECORDS SUMMARY | 2025-02-13 15:12 | XMS_ITS | Encounter Summary ---
Author Organization [employer] Address 75 [facility] 7 [place] [address] Care Team Providers Care Aids Nurse Name Role Phone Tremaine Renee MD Primary Care Prov ider Reason for Visit * Reason Onset Date Comments Med Refill 08/08/2024 Encounter Details Date Type Department Care Team (Late st Contact Info) Description 08/08/2024 Refill [facility] MEDICINE 230 [place] [address] Tremaine Renee MD 505 [place] [address] Primary osteoarthritis of right knee Social History [...] 1:00 PM EDT Office Visit [facility] ADULT DENTAL 505 [place] [address] Vicky Ogden DDS 230 [place] [address] 04/28/2025 9:30 AM EST Telemedicine [facility] MED & PEDS 505 [place] [address] Deena Prince, SHI 505 [place] [address] documented as of this encounter Visit Diagnoses Diagnosis Primary osteoarthritis of right knee documented in this encounter Additional Health Concerns Assessment Noted Time PHQ-9 Depression Total Score: 0 07/23/19 9:20 AM EST documented as of this encounter Care Teams Aids Nurse Relationship Specialty Start Date End Date Tremaine Renee MD 505 [place] [address] PCP - General Internal Medicine 05/20/19 documented as of this encounter
--- OUTSIDE RECORDS SUMMARY | 2025-02-13 15:12 | XMS_ITS | Encounter Summary ---
Author Organization [employer] Address 75 [facility] 7 [place] [address] Care Team Providers Care Is Architect Name Role Phone Tremaine Renee MD Primary Care Prov ider Reason for Visit * Reason Comments Med Refill Encounter Details Date Type Department Care Team (Late st Contact Info) Description 07/03/2023 Refill [facility] MEDICINE 230 [place] [address] Tremaine Renee MD 505 [place], [place] [phone] Primary osteoarthritis of right knee Social History [...] 1:00 PM EDT Office Visit [facility] ADULT DENTAL 505 [place] [address] Vicky Ogden DDS 230 [place] [address] 04/28/2025 9:30 AM EST Telemedicine [facility] MED & PEDS 505 [place] [address] Deena Prince, SHI 505 [place] [address] documented as of this encounter Visit Diagnoses Diagnosis Primary osteoarthritis of right knee documented in this encounter Additional Health Concerns Assessment Noted Time PHQ-9 Depression Total Score: 0 12/27/19 23 9:36 AM EDT documented as of this encounter Care Teams Is Architect Relationship Specialty Start Date End Date Tremaine Renee MD 505 [place] [address] PCP - General Internal Medicine 05/20/19 documented as of this encounter
== END 2025-02-13 13:37 | disposition home or self-care (01) ==
LOC: HO.HOS 13:10
PROVIDERS: PCP Internal Medicine; Visit Provider Physician Assistant
DX: M17.11 Unilateral primary osteoarthritis, right knee (principal)
CPT/HCPCS: 20610

== ENCOUNTER → 2025-02-13 13:09 | Outpatient (BNVA) | payer MEDICARE, MEDICAID, SELFPAY | PROVIDERS: PCP Internal Medicine; Visit Provider Physician Assistant | DX: M17.11 Unilateral primary osteoarthritis, right knee (principal) | CPT/HCPCS: 20610; J0665; J1100; J2003 ==

== ENCOUNTER 2025-05-15 12:57 | Outpatient (AMB) | payer MEDICARE, MEDICAID, SELFPAY ==
--- NOTE | 2025-05-15 13:07 | MHC.OFFVIS ---
Intake Visit Reasons: right knee injection, last inj 02/13/25 Intake Note: Zeb is a 69 year old male who presents today for a repeat injection for his right knee, last injection was on 02/13/25. Patient reports last injection gave him relief and would like to repeat. Allergies lisinopril Allergy (Verified 05/15/25 13:20) Facial Swelling HPI HPI right knee injection, last inj 02/13/25: Details: Patient presents to the office today for chronic right knee pain due to osteoarthritis. Last cortisone injection was 02/13/2025 which gave him good relief. He is looking to repeat injection while in the office today. [facility] Medical History Primary osteoarthritis of right knee Chronic diastolic (congestive) heart failure Hypertension Sleep apnea Paroxysmal atrial fibrillation Family History Mother No problems noted. Father No problems noted. Social History Alcohol intake: current Alcohol intake frequency: a few times a week Alcohol type: wine Patient Tobacco Use Status: Current everyday Tobacco user Cigarettes Per Day: 8 Years Smoked: 50 Current occupational status: retired Current occupation: Right Handed Review of Systems Const All systems reviewed & are unremarkable except as noted in HPI and below Physical Exam Const General: cooperative, healthy appearing and no acute distress Resp Effort & Inspection: normal respiratory effort and able to speak in complete sentences Extrem Other: Right knee: Normal to inspection. No ecchymosis, redness or joint effusion. Patient is able to demonstrate full knee flexion extension. Crepitus felt with knee range of motion. Negative Lanie. NVI. Psych Appearance: grossly normal Mental Status: mental status grossly normal Attitude: cooperative Office Procedures AMB Joint Injection/Aspiration Joint Injection/Aspiration Primary Site: Right Knee Prep: site was prepped using aseptic technique, ethochloride spray was applied and injection warnings given Injected: 40 mg of, Decadron, with 3 mL of, 1% plain Lidocaine, 0.25% Bupivacaine and in the joint Approach Used: anterolateral Procedure: The patient tolerated the procedure well, but had some pain with the injection and there was some relief with the local anesthesia Coding 88569 - Large joint Procedure code (CPT) selection complete Assessment & Plan Assessment & Plan (1) Primary osteoarthritis of right knee: Code(s): M17.11 - Unilateral primary osteoarthritis, right knee Category: Medical Plan The patient was offered a cortisone injection in right knee. The patient was explained the risks, benefits, and alternatives to receiving this injection. After receiving consent for the injection, the patient had the procedure done while in the office today. The patient tolerated the procedure well with no complications. The risks, benefits, and alternatives to a corticosteroid injection were discussed with the patient, including the potential benefits of decreased inflammation and pain, improved function, and diagnostic value. Risks were reviewed, including post-injection flare, skin or fat atrophy, transient facial flushing, temporary elevation in blood glucose, bruising, and rare but serious complications such as infection, tendon weakening or rupture, and cartilage damage with repeated injections. Procedure-related discomfort and possible vasovagal symptoms were also explained. Alternatives were reviewed, including NSAIDs, physical therapy, activity modification, bracing, ice/heat, weight management, hyaluronic acid injections when appropriate, PRP or other orthobiologics, oral steroids, surgery depending on pathology, and observation. The patient verbalized understanding and elected to proceed. After receiving consent for the injection, the patient had the procedure done while in the office today. The patient tolerated the procedure well with no complications. Follow-up will be PRN, or sooner if needed Coding Level of Care Code Est Pt Level 3 (75481) Add On Problem Visit Only Diagnoses Primary osteoarthritis of right knee M17.11 CPT Codes Coding - 81214 Large joint: 38256 - Large joint ([id number])
--- OUTSIDE RECORDS SUMMARY | 2025-05-15 16:51 | XMS_ITS | Encounter Summary ---
Author Organization [employer] Address [address] [place] [address] 7 [place] [address] Care Team Providers Care Gauge And Weigh Machine Operator Name Role Phone Tremaine Renee MD Primary Care Prov ider Reason for Visit * Reason Comments Med Refill Encounter Details Date Type Department Care Team ([facility] st Contact Info) Description 08/28/2023 Refill [facility] CHC MED & PEDS 505 [place], [place] [phone] Tremaine Renee MD 505 [place], [place] [phone] Primary osteoarthritis of right knee Social History [...] Care Team (Late st Contact Info) Description 05/26/2025 10:00 AM EST Office Visit [facility] ADULT DENTAL 505 [place] [address] Vicky Ogden DDS 230 [place] [address] 06/11/2025 9:45 AM EST Office Visit [facility] MED & PEDS 505 [place] [address] Tremaine Renee MD 505 [place] [address] 06/13/2025 9:30 AM EST Office Visit [facility] ADULT DENTAL [address] [place] [address] Ron Maradiaga 07/31/2025 10:00 AM EST Clinical Support [facility] MED & PEDS [address] [place] [address] Deena Prince, SHI 505 [place] [address] documented as of this encounter Visit Diagnoses Diagnosis Primary osteoarthritis of right knee documented in this encounter Additional Health Concerns Assessment Noted Time PHQ-9 Depression Total Score: 0 12/27/19 23 9:36 AM EDT documented as of this encounter Care Teams Gauge And Weigh Machine Operator Relationship Specialty Start Date End Date Tremaine Renee MD 505 [place] [address] PCP - General Internal Medicine 05/20/19 documented as of this encounter
--- OUTSIDE RECORDS SUMMARY | 2025-05-15 16:51 | XMS_ITS | Encounter Summary ---
Author Organization [employer] Address 75 [facility] 7 [place] [address] Care Team Providers Care Payroll And Benefits Manager Name Role Phone Tremaine Renee MD Primary Care Prov ider Reason for Visit * Reason Onset Date Comments Med Refill 02/02/2024 Encounter Details Date Type Department Care Team (Late st Contact Info) Description 02/02/2024 Telephone [facility] MEDICINE 230 [place], [place] [phone] Tremaine Renee MD 505 [place], [place] [phone] Med Refill Social History Tobacco Use Types [...] 50 MG tablet To be sent to: [facility]/pharmacy #[id number] - [place], [place] - [address] documented in this encounter Plan of Treatment Upcoming Encounters Date Type Department Care Team (Late st Contact Info) Description 05/26/2025 10:00 AM EST Office Visit [facility] ADULT DENTAL 505 [place] [address] Vicky Ogden DDS 230 [place] [address] 06/11/2025 9:45 AM EST Office Visit [facility] MED & PEDS [address] [place] [address] Tremaine Renee MD 505 [place] [address] 06/13/2025 9:30 AM EST Office Visit [facility] ADULT DENTAL [address] [place] [address] Ron Maradiaga 07/31/2025 10:00 AM EST Clinical Support [facility] MED & PEDS [address] [place] [address] Deena Prince RN 505 [place] [address] documented as of this encounter Visit Diagnoses Not on filedocumented in this encounter Additional Health Concerns Assessment Noted Time PHQ-9 Depression Total Score: 0 12/27/19 23 9:36 AM EDT documented as of this encounter Care Teams Payroll And Benefits Manager Relationship Specialty Start Date End Date Tremaine Renee MD 505 [place] [address] PCP - General Internal Medicine 05/20/19 documented as of this encounter
--- OUTSIDE RECORDS SUMMARY | 2025-05-15 16:51 | XMS_ITS | Encounter Summary ---
Author Organization [employer] Address [address] [place] [address] 7 [place] [address] Care Team Providers Care Bench Molder Name Role Phone Tremaine Renee MD Primary Care Prov ider Reason for Visit * Reason Onset Date Comments Med Refill 05/13/2025 Encounter Details Date Type Department Care Team ([facility] st Contact Info) Description 05/13/2025 Refill [facility] CH[facility] MED & PEDS [address] [place] [address] Tremaine Renee MD 505 [place] [address] Primary osteoarthritis of right knee Social History [...] encounter Miscellaneous Notes * Telephone Encounter - Clemente Moore - 05/13/2025 3:55 PM EST TC from pt requesting medication refill. Medications needing refill : traMADol (Ultram) 50 MG tablet To be sent to: [facility]/pharmacy #[id number] - [place], [place] - [address] documented in this encounter Plan of Treatment Upcoming Encounters Date Type Department Care Team (Late st Contact Info) Description 05/26/2025 10:00 AM EST Office Visit [facility] ADULT DENTAL [address] [place] [address] Vicky Ogden DDS [address] [place] [address] 06/11/2025 9:45 AM EST Office Visit [facility] MED & PEDS [address] [place], [place] [phone] Tremaine Renee MD [address] [place], [place] 06/13/2025 9:30 AM EST Office Visit [facility] ADULT [facility]ENT[facility] [address] [place], [place] [phone] Ron Maradiaga 07/31/2025 10:00 AM EST Clinical Support [facility] CHC MED & PEDS [address] [place] [address] Deena Prince, SHI 505 [place] [address] documented as of this encounter Visit Diagnoses Diagnosis Primary osteoarthritis of right knee documented in this encounter Additional Health Concerns Assessment Noted Time PHQ-9 Depression Total Score: 0 07/23/19 25 9:20 AM EST documented as of this encounter Care Teams Bench Molder Relationship Specialty Start Date End Date Tremaine Renee MD [address] [place] [address] PCP - General Internal Medicine 05/20/19 documented as of this encounter
--- OUTSIDE RECORDS SUMMARY | 2025-05-15 16:51 | XMS_ITS | Encounter Summary ---
Author Organization [employer] Address [address] [place] [address] 7 [place] [address] Care Team Providers Care Tools And Parts Attendant Name Role Phone Tremaine Renee MD Primary Care Prov ider Reason for Visit * Reason Onset Date Comments Med Refill 07/11/2024 Encounter Details Date Type Department Care Team ([facility] st Contact Info) Description 07/11/2024 Refill [facility] CHC MED & PEDS [address] [place], [place] [phone] Tremaine Renee MD [address] [place] [address] Primary osteoarthritis of right knee Social History [...] Description 05/26/2025 10:00 AM EST Office Visit [facility] ADULT DENTAL [address] [place] [address] Vicky Ogden DDS 230 [place] [address] 06/11/2025 9:45 AM EST Office Visit [facility] MED & PEDS [address] [place] [address] Tremaine Renee MD 505 [place] [address] 06/13/2025 9:30 AM EST Office Visit [facility] ADULT DENTAL [address] [place] [address] Ron Maradiaga 07/31/2025 10:00 AM EST Clinical Support [facility] MED & PEDS [address] [place] [address] Deena Prince, SHI 505 [place] [address] documented as of this encounter Visit Diagnoses Diagnosis Primary osteoarthritis of right knee documented in this encounter Additional Health Concerns Assessment Noted Time PHQ-9 Depression Total Score: 0 12/27/19 23 9:36 AM EDT documented as of this encounter Care Teams Tools And Parts Attendant Relationship Specialty Start Date End Date Tremaine Renee MD [address] [place] [address] PCP - General Internal Medicine 05/20/19 documented as of this encounter
--- OUTSIDE RECORDS SUMMARY | 2025-05-15 16:51 | XMS_ITS | Encounter Summary ---
Author Organization [employer] Address [address] [facility] 7 [place] [address] Care Team Providers Care Communications Advisor Name Role Phone Tremaine Renee MD Primary Care Prov ider Reason for Visit * Reason Onset Date Comments Med Refill 01/08/2024 Encounter Details Date Type Department Care Team (Late st Contact Info) Description 01/08/2024 Telephone [facility] MEDICINE [address] [place] [address] Tremaine Renee MD [address] [place], [place] [phone] Med Refill Social History Tobacco Use Types [...] 50 MG tablet To be sent to: [facility]/pharmacy #[id number] - [place], [place] - [address] documented in this encounter Plan of Treatment Upcoming Encounters Date Type Department Care Team (Late st Contact Info) Description 05/26/2025 10:00 AM EST Office Visit [facility] ADULT DENTAL [address] [place] [address] Vicky Ogden DDS 230 [place] [address] 06/11/2025 9:45 AM EST Office Visit [facility] MED & PEDS [address] [place] [address] Tremaine Renee MD [address] [place] [address] 06/13/2025 9:30 AM EST Office Visit [facility] ADULT DENTAL [address] [place] [address] Ron Maradiaga 07/31/2025 10:00 AM EST Clinical Support [facility] MED & PEDS [address] [place] [address] Deena Prince RN 505 [place] [address] documented as of this encounter Visit Diagnoses Not on filedocumented in this encounter Additional Health Concerns Assessment Noted Time PHQ-9 Depression Total Score: 0 12/27/19 23 9:36 AM EDT documented as of this encounter Care Teams Communications Advisor Relationship Specialty Start Date End Date Tremaine Renee MD 505 [place] [address] PCP - General Internal Medicine 05/20/19 documented as of this encounter
--- OUTSIDE RECORDS SUMMARY | 2025-05-15 16:51 | XMS_ITS | Encounter Summary ---
Author Organization [employer] Address [address] [place] [address] 7 [place] [address] Care Team Providers Care Screen Stretcher Name Role Phone Tremaine Renee MD Primary Care Prov ider Reason for Visit * Reason Onset Date Comments Paperwork/Forms 11/23/2023 Encounter Details Date Type Department Care Team ([facility] Contact Info) Description 11/23/2023 Telephone [facility] CHC MED & PEDS [address] [place], [place] [phone] Tremaine Renee MD 505 [place] [address] Paperwork/Forms Social History Tobacco Use Types Packs/Day [...] status on medical clearance form sent by [facility] dental. Please contact pt at [phone] documented in this encounter Plan of Treatment Upcoming Encounters Date Type Department Care Team (Late st Contact Info) Description 05/26/2025 10:00 AM EST Office Visit [facility] ADULT DENTAL [address] [place] [address] Vicky Ogden DDS 230 [place] [address] 06/11/2025 9:45 AM EST Office Visit [facility] MED & PEDS [address] [place] [address] Tremaine Renee MD 505 [place] [address] 06/13/2025 9:30 AM EST Office Visit [facility] ADULT DENTAL [address] [place] [address] Ron Maradiaga 07/31/2025 10:00 AM EST Clinical Support [facility] MED & PEDS [address] [place] [address] Deena Prince, SHI 505 [place] [address] documented as of this encounter Visit Diagnoses Not on filedocumented in this encounter Additional Health Concerns Assessment Noted Time PHQ-9 Depression Total Score: 0 12/27/19 23 9:36 AM EDT documented as of this encounter Care Teams Screen Stretcher Relationship Specialty Start Date End Date Tremaine Renee MD [address] [place] [address] PCP - General Internal Medicine 05/20/19 documented as of this encounter
--- OUTSIDE RECORDS SUMMARY | 2025-05-15 16:51 | XMS_ITS | Encounter Summary ---
Author Organization [employer] Address [address] [place] [address] 7 [place] [address] Care Team Providers Care Manager Pmo Name Role Phone Tremaine Renee MD Primary Care Prov ider Reason for Visit * Reason Comments Med Refill Encounter Details Date Type Department Care Team ([facility] st Contact Info) Description 07/01/2024 Refill [facility] CHC MED & PEDS [address] [place], [place] [phone] Tremaine Renee MD [address] [place], [place] [phone] Permanent atrial fibrillation (CMS/HCC) Social History Tobacco [...] 10:00 AM EST Office Visit [facility] ADULT DENTAL [address] [place] [address] Vicky Ogden DDS 230 [place] [address] 06/11/2025 9:45 AM EST Office Visit [facility] MED & PEDS [address] [place] [address] Tremaine Renee MD 505 [place] [address] 06/13/2025 9:30 AM EST Office Visit [facility] ADULT DENTAL [address] [place] [address] Ron Maradiaga 07/31/2025 10:00 AM EST Clinical Support [facility] MED & PEDS [address] [place] [address] Deena Prince, SHI 505 [place] [address] documented as of this encounter Visit Diagnoses Diagnosis Permanent atrial fibrillation (CMS/HCC) (HCC) Atrial fibrillation documented in this encounter Additional Health Concerns Assessment Noted Time PHQ-9 Depression Total Score: 0 12/27/19 23 9:36 AM EDT documented as of this encounter Care Teams Manager Pmo Relationship Specialty Start Date End Date Tremaine Renee MD 505 [place] [address] PCP - General Internal Medicine 05/20/19 documented as of this encounter
--- OUTSIDE RECORDS SUMMARY | 2025-05-15 16:51 | XMS_ITS | Encounter Summary ---
Author Organization [employer] Address [address] [place] [address] 7 [place] [address] Care Team Providers Care Lithograph Press Operator Tinware Name Role Phone Tremaine Renee MD Primary Care Prov ider Reason for Visit * Reason Onset Date Comments Med Refill 07/08/2024 Encounter Details Date Type Department Care Team ([facility] st Contact Info) Description 07/08/2024 Refill [facility] CHC MED & PEDS [address] [place], [place] [phone] Tremaine Renee MD 505 [place] [address] Permanent atrial fibrillation (CMS/HCC) Social History Tobacco [...] Description 05/26/2025 10:00 AM EST Office Visit [facility] ADULT DENTAL [address] [place] [address] Vicky Ogden DDS 230 [place] [address] 06/11/2025 9:45 AM EST Office Visit [facility] MED & PEDS [address] [place] [address] Tremaine Renee MD 505 [place] [address] 06/13/2025 9:30 AM EST Office Visit [facility] ADULT DENTAL [address] [place] [address] Ron Maradiaga 07/31/2025 10:00 AM EST Clinical Support [facility] MED & PEDS [address] [place] [address] Deena Prince, RN 505 [place] [address] documented as of this encounter Visit Diagnoses Diagnosis Permanent atrial fibrillation (CMS/HCC) (HCC) Atrial fibrillation documented in this encounter Additional Health Concerns Assessment Noted Time PHQ-9 Depression Total Score: 0 12/27/19 23 9:36 AM EDT documented as of this encounter Care Teams Lithograph Press Operator Tinware Relationship Specialty Start Date End Date Tremaine Renee MD [address] [place] [address] PCP - General Internal Medicine 05/20/19 documented as of this encounter
--- OUTSIDE RECORDS SUMMARY | 2025-05-15 16:51 | XMS_ITS | Encounter Summary ---
Author Organization [employer] Address [address] [facility] 7 [place] [address] Care Team Providers Care Retail Performance Specialist Name Role Phone Tremaine Renee MD Primary Care Prov ider Reason for Visit * Reason Onset Date Comments Med Refill 09/04/2024 Encounter Details Date Type Department Care Team (Late st Contact Info) Description 09/04/2024 Telephone [facility] MEDICINE 230 [place] [address] Tremaine Renee MD [address] [place], [place] [phone] Med Refill Social History Tobacco Use Types [...] 50 MG tablet To be sent to: [facility]/pharmacy #[id number] - [place], [place] - [address] documented in this encounter Plan of Treatment Upcoming Encounters Date Type Department Care Team (Late st Contact Info) Description 05/26/2025 10:00 AM EST Office Visit [facility] ADULT DENTAL 505 [place] [address] Vicky Ogden DDS [address] [place] [address] 06/11/2025 9:45 AM EST Office Visit [facility] MED & PEDS [address] [place], [place] [phone] Tremaine Renee MD [address] [place] [address] 06/13/2025 9:30 AM EST Office Visit [facility] ADULT DENTAL [address] [place], [place] [phone] Ron Maradiaga 07/31/2025 10:00 AM EST Clinical Support [facility] CHC MED & PEDS [address] [place] [address] Deena Prince, SHI 505 [place] [address] documented as of this encounter Visit Diagnoses Not on filedocumented in this encounter Additional Health Concerns Assessment Noted Time PHQ-9 Depression Total Score: 0 07/23/19 25 9:20 AM EST documented as of this encounter Care Teams Retail Performance Specialist Relationship Specialty Start Date End Date Tremaine Renee MD [address] [place] [address] PCP - General Internal Medicine 05/20/19 documented as of this encounter
--- OUTSIDE RECORDS SUMMARY | 2025-05-15 16:51 | XMS_ITS | Encounter Summary ---
Author Organization [employer] Address [address] [facility] 7 [place] [address] Care Team Providers Care Vulcanizing Press Operator Name Role Phone Tremaine Renee MD Primary Care Prov ider Reason for Visit * Reason Onset Date Comments Med Refill 10/02/2024 Encounter Details Date Type Department Care Team ([facility] st Contact Info) Description 10/02/2024 Telephone [facility] MEDICINE [address] [place] [address] Tremaine Renee MD 505 [place], [place] [phone] Med Refill Social History Tobacco Use Types [...] 50 MG tablet To be sent to: [facility]/pharmacy #[id number] - [place], [place] - [address] documented in this encounter Plan of Treatment Upcoming Encounters Date Type Department Care Team (Late st Contact Info) Description 05/26/2025 10:00 AM EST Office Visit [facility] ADULT DENTAL 505 [place] [address] Vicky Ogden DDS 230 [place] [address] 06/11/2025 9:45 AM EST Office Visit [facility] MED & PEDS [address] [place], [place] [phone] Tremaine Renee MD 505 [place] [address] 06/13/2025 9:30 AM EST Office Visit [facility] ADULT DENTAL [address] [place], [place] [phone] Ron Maradiaga 07/31/2025 10:00 AM EST Clinical Support [facility] CHC MED & PEDS 505 [place] [address] Deena Prince, SHI 505 [place] [address] documented as of this encounter Visit Diagnoses Not on filedocumented in this encounter Additional Health Concerns Assessment Noted Time PHQ-9 Depression Total Score: 0 07/23/19 25 9:20 AM EST documented as of this encounter Care Teams Vulcanizing Press Operator Relationship Specialty Start Date End Date Tremaine Renee MD 505 [place] [address] PCP - General Internal Medicine 05/20/19 documented as of this encounter
--- OUTSIDE RECORDS SUMMARY | 2025-05-15 16:51 | XMS_ITS | Encounter Summary ---
Author Organization [employer] Address [address] [facility] 7t [place] [address] Care Team Providers Care Leather Stamper Name Role Phone Tremaine Renee MD Primary Care Prov ider Encounter Details Date Type Department Care Team ([facility] st Contact Info) Description 03/31/2025 Telephone [facility] MEDICINE 230 [place] [address] Tremaine Renee MD 505 [place], [place] [phone] Social History Tobacco Use Types Packs/Day Years [...] Description 05/26/2025 10:00 AM EST Office Visit [facility] ADULT DENTAL [address] [place] [address] Vicky Ogden DDS 230 [place] [address] 06/11/2025 9:45 AM EST Office Visit [facility] MED & PEDS [address] [place] [address] Tremaine Renee MD 505 [place] [address] 06/13/2025 9:30 AM EST Office Visit [facility] ADULT DENTAL [address] [place] [address] Ron Maradiaga 07/31/2025 10:00 AM EST Clinical Support [facility] MED & PEDS [address] [place] [address] Deena Prince RN 505 [place] [address] documented as of this encounter Visit Diagnoses Not on filedocumented in this encounter Additional Health Concerns Assessment Noted Time PHQ-9 Depression Total Score: 0 07/23/19 25 9:20 AM EST documented as of this encounter Care Teams Leather Stamper Relationship Specialty Start Date End Date Tremaine Renee MD [address] [place] [address] PCP - General Internal Medicine 05/20/19 documented as of this encounter
--- OUTSIDE RECORDS SUMMARY | 2025-05-15 16:51 | XMS_ITS | Encounter Summary ---
Author Organization [employer] Address [address] [place] [address] 7 [place] [address] Care Team Providers Care Harbor Engineer Name Role Phone Tremaine Renee MD Primary Care Prov ider Reason for Visit * Reason Onset Date Comments Med Refill 06/13/2024 Encounter Details Date Type Department Care Team ([facility] st Contact Info) Description 06/13/2024 Refill [facility] CHC MED & PEDS [address] [place], [place] [phone] Tremaine Renee MD 505 [place] [address] Primary osteoarthritis of right knee Social History [...] Description 05/26/2025 10:00 AM EST Office Visit [facility] ADULT DENTAL 505 [place] [address] Vicky Ogden DDS [address] [place] [address] 06/11/2025 9:45 AM EST Office Visit [facility] MED & PEDS 505 [place] [address] Tremaine Renee MD 505 [place] [address] 06/13/2025 9:30 AM EST Office Visit [facility] ADULT DENTAL 505 [place] [address] Ron Maradiaga 07/31/2025 10:00 AM EST Clinical Support [facility] MED & PEDS 505 [place] [address] Deena Prince, SHI 505 [place] [address] documented as of this encounter Visit Diagnoses Diagnosis Primary osteoarthritis of right knee documented in this encounter Additional Health Concerns Assessment Noted Time PHQ-9 Depression Total Score: 0 12/27/19 23 9:36 AM EDT documented as of this encounter Care Teams Harbor Engineer Relationship Specialty Start Date End Date Tremaine Renee MD 505 [place] [address] PCP - General Internal Medicine 05/20/19 documented as of this encounter
--- OUTSIDE RECORDS SUMMARY | 2025-05-15 16:51 | XMS_ITS | Encounter Summary ---
Author Organization [employer] Address [address] [facility] 7t [place] [address] Care Team Providers Care Chief Operator Synthesis Name Role Phone Tremaine Renee MD Primary Care Prov ider Reason for Visit * Reason Onset Date Comments medical clearance 11/17/2023 Encounter Details Date Type Department Care Team (Late st Contact Info) Description 11/17/2023 Telephone [facility] ADULT DENTAL [address] [place], [place] [phone] Manjit Horvath DDS [address] [facility] [place] [address] medical clearance Social History Tobacco Use Types [...] Description 05/26/2025 10:00 AM EST Office Visit [facility] ADULT DENTAL [address] [place] [address] Vicky Ogden DDS 230 [place] [address] 06/11/2025 9:45 AM EST Office Visit [facility] MED & PEDS [address] [place] [address] Tremaine Renee MD 505 [place] [address] 06/13/2025 9:30 AM EST Office Visit [facility] ADULT DENTAL [address] [place] [address] Ron Maradiaga 07/31/2025 10:00 AM EST Clinical Support [facility] CHC MED & PEDS [address] [place] [address] Deena Prince, SHI 505 [place] [address] documented as of this encounter Visit Diagnoses Not on filedocumented in this encounter Additional Health Concerns Assessment Noted Time PHQ-9 Depression Total Score: 0 12/27/19 23 9:36 AM EDT documented as of this encounter Care Teams Chief Operator Synthesis Relationship Specialty Start Date End Date Tremaine Renee MD 505 [place] [address] PCP - General Internal Medicine 05/20/19 documented as of this encounter
--- OUTSIDE RECORDS SUMMARY | 2025-05-15 16:51 | XMS_ITS | Encounter Summary ---
Author Organization [employer] Address [address] [place] [address] 7 [place] [address] Care Team Providers Care Business Support Administrator Name Role Phone Tremaine Renee MD Primary Care Prov ider Reason for Visit * Reason Comments Med Refill Encounter Details Date Type Department Care Team ([facility] st Contact Info) Description 07/31/2023 Refill [facility] CHC MED & PEDS 505 [place], [place] [phone] Tremaine Renee MD [address] [place], [place] [phone] Primary osteoarthritis of right knee Social History [...] 10:00 AM EST Office Visit [facility] ADULT DENTAL [address] [place] [address] Vicky Ogden DDS 230 [place] [address] 06/11/2025 9:45 AM EST Office Visit [facility] MED & PEDS 505 [place] [address] Tremaine Renee MD [address] [place] [address] 06/13/2025 9:30 AM EST Office Visit [facility] ADULT DENTAL 505 [place] [address] Ron Maradiaga 07/31/2025 10:00 AM EST Clinical Support [facility] MED & PEDS [address] [place] [address] Deena Prince, SHI 505 [place] [address] documented as of this encounter Visit Diagnoses Diagnosis Primary osteoarthritis of right knee documented in this encounter Additional Health Concerns Assessment Noted Time PHQ-9 Depression Total Score: 0 12/27/19 23 9:36 AM EDT documented as of this encounter Care Teams Business Support Administrator Relationship Specialty Start Date End Date Tremaine Renee MD [address] [place] [address] PCP - General Internal Medicine 05/20/19 documented as of this encounter
--- OUTSIDE RECORDS SUMMARY | 2025-05-15 16:51 | XMS_ITS | Encounter Summary ---
Author Organization [employer] Address [address] [place] [address] 7 [place] [address] Care Team Providers Care Nursing Informatics Analyst Name Role Phone Tremaine Renee MD Primary Care Prov ider Reason for Visit * Reason Comments Med Refill Encounter Details Date Type Department Care Team ([facility] st Contact Info) Description 06/14/2024 Refill [facility] CHC MED & PEDS [address] [place], [place] [phone] Tremaine Renee MD 505 [place], [place] [phone] Primary osteoarthritis of right knee Social History [...] AM EST Office Visit [facility] ADULT DENTAL [address] [place] [address] Vicky Ogden DDS 230 [place] [address] 06/11/2025 9:45 AM EST Office Visit [facility] MED & PEDS [address] [place] [address] Tremaine Renee MD 505 [place] [address] 06/13/2025 9:30 AM EST Office Visit [facility] ADULT DENTAL [address] [place] [address] Ron Maradiaga 07/31/2025 10:00 AM EST Clinical Support [facility] MED & PEDS [address] [place] [address] Deena Prince, SHI 505 [place] [address] documented as of this encounter Visit Diagnoses Diagnosis Primary osteoarthritis of right knee documented in this encounter Additional Health Concerns Assessment Noted Time PHQ-9 Depression Total Score: 0 12/27/19 23 9:36 AM EDT documented as of this encounter Care Teams Nursing Informatics Analyst Relationship Specialty Start Date End Date Tremaine Renee MD 505 [place] [address] PCP - General Internal Medicine 05/20/19 documented as of this encounter
--- OUTSIDE RECORDS SUMMARY | 2025-05-15 16:51 | XMS_ITS | Encounter Summary ---
Author Organization [employer] Address 75 [facility] 7t [place] [address] Care Team Providers Care Video Game Developer Name Role Phone Tremaine Renee MD Primary Care Prov ider Reason for Visit * Reason Comments Med Refill Encounter Details Date Type Department Care Team (Late st Contact Info) Description 12/23/2024 Refill [facility] MED & PEDS [address] [place], [place] [phone] Tala Thurman MD 505 [place] [address] Primary osteoarthritis of right knee Social History [...] [facility] ADULT DENTAL [address] [place] [address] Vicky Ogden DDS 230 [place] [address] 06/11/2025 9:45 AM EST Office Visit [facility] MED & PEDS 505 [place] [address] Tremaine Renee MD 505 [place] [address] 06/13/2025 9:30 AM EST Office Visit [facility] ADULT DENTAL 505 [place] [address] Ron Maradiaga 07/31/2025 10:00 AM EST Clinical Support [facility] MED & PEDS [address] [place] [address] Deena Prince RN 505 [place] [address] documented as of this encounter Visit Diagnoses Diagnosis Primary osteoarthritis of right knee documented in this encounter Additional Health Concerns Assessment Noted Time PHQ-9 Depression Total Score: 0 07/23/19 25 9:20 AM EST documented as of this encounter Care Teams Video Game Developer Relationship Specialty Start Date End Date Tremaine Renee MD [address] [place] [address] PCP - General Internal Medicine 05/20/19 documented as of this encounter
--- OUTSIDE RECORDS SUMMARY | 2025-05-15 16:51 | XMS_ITS | Encounter Summary ---
Author Organization [employer] Address 75 [facility] 7 [place] [address] Care Team Providers Care Documentation Coordinator Name Role Phone Tremaine Renee MD Primary Care Prov ider Reason for Visit * Reason Onset Date Comments Med Refill 07/29/2022 Encounter Details Date Type Department Care Team ([facility] st Contact Info) Description 07/29/2022 Telephone [facility] MEDICINE 230 [place] [address] Tremaine Renee MD [address] [place] [address] [phone] Med Refill Social History Tobacco Use Types [...] 10:00 AM EST Office Visit [facility] ADULT DENTAL 505 [place] [address] Vicky Ogden DDS [address] [place] [address] 06/11/2025 9:45 AM EST Office Visit [facility] MED & PEDS [address] [place] [address] Tremaine Renee MD 505 [place] [address] 06/13/2025 9:30 AM EST Office Visit [facility] ADULT DENTAL [address] [place] [address] Ron Maradiaga 07/31/2025 10:00 AM EST Clinical Support [facility] MED & PEDS [address] [place] [address] Deena Prince, RN 505 [place] [address] documented as of this encounter Visit Diagnoses Not on filedocumented in this encounter Care Teams Documentation Coordinator Relationship Specialty Start Date End Date Tremaine Renee MD 505 [place] [address] PCP - General Internal Medicine 05/20/19 documented as of this encounter
--- OUTSIDE RECORDS SUMMARY | 2025-05-15 16:51 | XMS_ITS | Encounter Summary ---
Author Organization [employer] Address [address] [place] [address] 7 [place] [address] Care Team Providers Care Foundry Equipment Mechanic Name Role Phone Tremaine Renee MD Primary Care Prov ider Reason for Visit * Reason Comments Med Refill Encounter Details Date Type Department Care Team ([facility] st Contact Info) Description 02/18/2025 Refill [facility] CH[facility] MED & PEDS 505 [place], [place] [phone] Tremaine Renee MD 505 [place] [address] Social History Tobacco Use Types Packs/Day Years [...] EST Office Visit [facility] ADULT DENTAL 505 [place] [address] Vicky Ogden DDS 230 [place] [address] 06/11/2025 9:45 AM EST Office Visit [facility] MED & PEDS 505 [place] [address] Tremaine Renee MD 505 [place] [address] 06/13/2025 9:30 AM EST Office Visit [facility] ADULT DENTAL 505 [place] [address] Ron Maradiaga 07/31/2025 10:00 AM EST Clinical Support [facility] MED & PEDS 505 [place] [address] Deena Prince RN 505 [place] [address] documented as of this encounter Visit Diagnoses Not on filedocumented in this encounter Additional Health Concerns Assessment Noted Time PHQ-9 Depression Total Score: 0 07/23/19 25 9:20 AM EST documented as of this encounter Care Teams Foundry Equipment Mechanic Relationship Specialty Start Date End Date Tremaine Renee MD [address] [place] [address] PCP - General Internal Medicine 05/20/19 documented as of this encounter
--- OUTSIDE RECORDS SUMMARY | 2025-05-15 16:51 | XMS_ITS | Encounter Summary ---
Author Organization [employer] Address [address] [place] [address] 7 [place] [address] Care Team Providers Care Divider Operator Name Role Phone Tremaine Renee MD Primary Care Prov ider Reason for Visit * Reason Onset Date Comments Med Refill 07/03/2024 Encounter Details Date Type Department Care Team ([facility] st Contact Info) Description 07/03/[address] [facility] CHC MED & PEDS [address] [place], [place] [phone] Tremaine Renee MD 505 [place] [address] Permanent atrial fibrillation (CMS/HCC) Social History Tobacco [...] Description 05/26/2025 10:00 AM EST Office Visit [facility] ADULT DENTAL [address] [place] [address] Vicky Ogden DDS 230 [place] [address] 06/11/2025 9:45 AM EST Office Visit [facility] MED & PEDS [address] [place] [address] Tremaine Renee MD 505 [place] [address] 06/13/2025 9:30 AM EST Office Visit [facility] ADULT DENTAL [address] [place] [address] Ron Maradiaga 07/31/2025 10:00 AM EST Clinical Support [facility] MED & PEDS [address] [place] [address] Deena Prince, RN 505 [place] [address] documented as of this encounter Visit Diagnoses Diagnosis Permanent atrial fibrillation (CMS/HCC) (HCC) Atrial fibrillation documented in this encounter Additional Health Concerns Assessment Noted Time PHQ-9 Depression Total Score: 0 12/27/19 23 9:36 AM EDT documented as of this encounter Care Teams Divider Operator Relationship Specialty Start Date End Date Tremaine Renee MD [address] [place] [address] PCP - General Internal Medicine 05/20/19 documented as of this encounter
--- OUTSIDE RECORDS SUMMARY | 2025-05-15 16:51 | XMS_ITS | Encounter Summary ---
Author Organization [employer] Address 75 [facility] 7t [place] [address] Care Team Providers Care Freezer Operator Name Role Phone Tremaine Renee MD Primary Care Prov ider Encounter Details Date Type Department Care Team ([facility] st Contact Info) Description 12/19/2023 Telephone [facility] CHC MED & PEDS 505 [place], [place] [phone] Tremaine Renee MD 505 [place] [address] Social History Tobacco Use Types Packs/Day Years [...] Visit [facility] ADULT DENTAL 505 [place] [address] Vicky Ogden DDS 230 [place] [address] 06/11/2025 9:45 AM EST Office Visit [facility] MED & PEDS 505 [place] [address] Tremaine Renee MD 505 [place] [address] 06/13/2025 9:30 AM EST Office Visit [facility] ADULT DENTAL 505 [place] [address] Ron Maradiaga 07/31/2025 10:00 AM EST Clinical Support [facility] MED & PEDS 505 [place] [address] Deena Prince, SHI 505 [place] [address] documented as of this encounter Visit Diagnoses Not on filedocumented in this encounter Additional Health Concerns Assessment Noted Time PHQ-9 Depression Total Score: 0 12/27/19 23 9:36 AM EDT documented as of this encounter Care Teams Freezer Operator Relationship Specialty Start Date End Date Tremaine Renee MD 505 [place] [address] PCP - General Internal Medicine 05/20/19 documented as of this encounter
--- OUTSIDE RECORDS SUMMARY | 2025-05-15 16:51 | XMS_ITS | Encounter Summary ---
Author Organization [employer] Address 75 [facility] 7 [place] [address] Care Team Providers Care Adult Basic Education Instructor Name Role Phone Tremaine Renee MD Primary Care Prov ider Reason for Visit * Reason Onset Date Comments Med Refill 07/31/2023 Encounter Details Date Type Department Care Team (Late st Contact Info) Description 07/31/2023 Telephone [facility] MEDICINE 230 [place], [place] [phone] Tremaine Renee MD 505 [place], [place] [phone] Med Refill Social History Tobacco Use Types [...] 50 MG tablet To be sent to: [id number] - [place], [place] - [address] documented in this encounter Plan of Treatment Upcoming Encounters Date Type Department Care Team (Late st Contact Info) Description 05/26/2025 10:00 AM EST Office Visit [facility] ADULT DENTAL 505 [place] [address] Vicky Ogden DDS 230 [place] [address] 06/11/2025 9:45 AM EST Office Visit [facility] MED & PEDS [address] [place] [address] Tremaine Renee MD 505 [place] [address] 06/13/2025 9:30 AM EST Office Visit [facility] ADULT DENTAL [address] [place] [address] Ron Maradiaga 07/31/2025 10:00 AM EST Clinical Support [facility] MED & PEDS [address] [place] [address] Deena Prince RN 505 [place] [address] documented as of this encounter Visit Diagnoses Not on filedocumented in this encounter Additional Health Concerns Assessment Noted Time PHQ-9 Depression Total Score: 0 12/27/19 23 9:36 AM EDT documented as of this encounter Care Teams Adult Basic Education Instructor Relationship Specialty Start Date End Date Tremaine Renee MD [address] [place] [address] [place] [address] PCP - General Internal Medicine 05/20/19 documented as of this encounter
--- OUTSIDE RECORDS SUMMARY | 2025-05-15 16:51 | XMS_ITS | Encounter Summary ---
Author Organization [employer] Address [address] [place] [address] 7 [place] [address] Care Team Providers Care Supervisor Body Assembly Name Role Phone Tremaine Renee MD Primary Care Prov ider Reason for Visit * Reason Comments Med Refill Encounter Details Date Type Department Care Team ([facility] st Contact Info) Description 02/16/2025 Refill [facility] CH[facility] MED & PEDS 505 [place], [place] [phone] Tremaine Renee MD 505 [place] [address] Primary osteoarthritis of right knee Social History [...] Description 05/26/2025 10:00 AM EST Office Visit [facility] ADULT DENTAL 505 [place] [address] Vicky Ogden DDS 230 [place] [address] 06/11/2025 9:45 AM EST Office Visit [facility] MED & PEDS 505 [place] [address] Tremaine Renee MD 505 [place] [address] 06/13/2025 9:30 AM EST Office Visit [facility] ADULT DENTAL 505 [place] [address] Ron Maradiaga 07/31/2025 10:00 AM EST Clinical Support [facility] MED & PEDS 505 [place] [address] Deena Prince RN 505 [place] [address] documented as of this encounter Visit Diagnoses Diagnosis Primary osteoarthritis of right knee documented in this encounter Additional Health Concerns Assessment Noted Time PHQ-9 Depression Total Score: 0 07/23/19 25 9:20 AM EST documented as of this encounter Care Teams Supervisor Body Assembly Relationship Specialty Start Date End Date Tremiane Renee MD [address] [place] [address] PCP - General Internal Medicine 05/20/19 documented as of this encounter
--- OUTSIDE RECORDS SUMMARY | 2025-05-15 16:51 | XMS_ITS | Encounter Summary ---
Author Organization [employer] Address [address] [place] [address] 7 [place] [address] Care Team Providers Care Sales Supervisor Name Role Phone Tremaine Renee MD Primary Care Prov ider Reason for Visit * Reason Comments Med Refill Encounter Details Date Type Department Care Team ([facility] st Contact Info) Description 01/21/2025 Refill [facility] CHC MED & PEDS 505 [place], [place] [phone] Tremaine Renee MD 505 [place] [address] Primary osteoarthritis of right knee Social History [...] 10:00 AM EST Office Visit [facility] ADULT DENTAL 505 [place] [address] Vicky Ogden DDS 230 [place] [address] 06/11/2025 9:45 AM EST Office Visit [facility] MED & PEDS 505 [place] [address] Tremaine Renee MD 505 [place] [address] 06/13/2025 9:30 AM EST Office Visit [facility] ADULT DENTAL 505 [place] [address] Ron Maradiaga 07/31/2025 10:00 AM EST Clinical Support [facility] MED & PEDS 505 [place] [address] Deena Prince RN 505 [place] [address] documented as of this encounter Visit Diagnoses Diagnosis Primary osteoarthritis of right knee documented in this encounter Additional Health Concerns Assessment Noted Time PHQ-9 Depression Total Score: 0 07/23/19 25 9:20 AM EST documented as of this encounter Care Teams Sales Supervisor Relationship Specialty Start Date End Date Tremaine Renee MD [address] [place] [address] PCP - General Internal Medicine 05/20/19 documented as of this encounter
--- OUTSIDE RECORDS SUMMARY | 2025-05-15 16:52 | XMS_ITS | Encounter Summary ---
Author Organization [employer] Address 75 [facility] 7 [place] [address] Care Team Providers Care Manager In Training Name Role Phone Tremaine Renee MD Primary Care Prov ider Reason for Visit * Reason Onset Date Comments Med Refill 04/11/2023 Encounter Details Date Type Department Care Team ([facility] st Contact Info) Description 04/11/2023 Telephone [facility] MEDICINE 230 [place] [address] Tremaine Renee MD 505 [place], [place] [phone] Med Refill Social History Tobacco Use Types [...] Description 05/26/2025 10:00 AM EST Office Visit [facility] ADULT DENTAL 505 [place] [address] Vicky Ogden DDS 230 [place] [address] 06/11/2025 9:45 AM EST Office Visit [facility] MED & PEDS 505 [place] [address] Tremaine Renee MD 505 [place] [address] 06/13/2025 9:30 AM EST Office Visit [facility] ADULT DENTAL 505 [place] [address] Ron Maradiaga 07/31/2025 10:00 AM EST Clinical Support [facility] MED & PEDS 505 [place] [address] Deena Prince, SHI 505 [place] [address] documented as of this encounter Visit Diagnoses Not on filedocumented in this encounter Additional Health Concerns Assessment Noted Time PHQ-9 Depression Total Score: 0 12/27/19 23 9:36 AM EDT documented as of this encounter Care Teams Manager In Training Relationship Specialty Start Date End Date Tremaine Renee MD [address] [place] [address] PCP - General Internal Medicine 05/20/19 documented as of this encounter
--- OUTSIDE RECORDS SUMMARY | 2025-05-15 16:52 | XMS_ITS | Clinical Summary ---
Author Organization [employer] Address [address] [place] [address] 7t [place] [address] Care Team Providers Care Marketing Co Op Name Role Phone Tremaine Renee MD Primary Care Prov ider Allergies Active Allergy Reactions Criticality Noted Date Comments Lisinopril Other 01/29/2025 Pt reports swollen lips when he took meds last Medications albuterol 108 (90 Base) MCG/ACT inhaler INHALE 2 PUFFS EVERY 4 HOURS IF NEEDED FOR WHEEZING. 18 g 3 Active chlorhexidine (Peridex) 0.12 % solution Please use 15 ml orally as mouthwash twice daily. Swish for 60 seconds and spit. Do not rinse. 473 mL 1 Active Additional Information Patient not taking.Reported on 03/26/2025 spironolactone (Aldactone) 25 MG tabletIndications :Essential hypertension Take 1 tablet (25 mg) by mouth in the morning. 90 tablet 3 025 2025 Active clopidogrel (Plavix) 75 MG tablet Take 75 mg by mouth Once per day. Active isosorbide dinitrate (Isordil) 20 MG tablet Take 20 mg by mouth in the morning. Active ibuprofen 400 MG tablet TAKE 1 TABLET BY MOUTH EVERY 6 HOURS IF NEEDED FOR PAIN OR FEVER 60 tablet Active traMADol (Ultram) 50 MG tabletIndications :Primary osteoarthritis of right knee Take 1 tablet (50 mg) by mouth every 12 (twelve) hours if needed for severe pain. 56 tablet Active azithromycin (Zithromax) 250 MG tablet Take 2 tabs day and then 1 tab daily 6 tablet Active Dextromethorphan- guaiFENesin (Mucinex DM) 30-600 MG tablet sustained-release 12 hour Use 1 tab TID 28 tablet Active Additional Information Patient not taking.Reported on 03/26/2025 metoprolol tartrate (Lopressor) 25 MG tablet Take 1 tablet (25 mg) by mouth every 12 (twelve) hours. 60 tablet 11 2025 Active naloxone (Narcan) 4 mg/0.1 mL nasal spray Administer 1 spray (4 mg) into affected nostril(s) if needed for opioid reversal. 1 each 1 Active apixaban (Eliquis) 5 MG tablet Take 5 mg by mouth. 2025 Active metoprolol succinate XL (Toprol-XL) 200 MG 24 hr tablet Take 1 tablet by mouth Once per day. Active Brilinta 90 MG tablet Take 90 mg by mouth 2 times daily. Active valsartan (Diovan) 40 MG tablet Take 40 mg by mouth. Active atorvastatin (Lipitor) 80 MG tabletIndications :Mixed hyperlipidemia Take 1 tablet (80 mg) by mouth in the morning. 90 tablet 3 025 2025 Active Xarelto 20 MG tabletIndications :Permanent atrial fibrillation (CMS/HCC) (HCC) TAKE 1 TABLET BY MOUTH EVERY DAY AT BEDTIME WITH FOOD 90 tablet 2 Active traMADol (Ultram) 50 MG tabletIndications :Primary osteoarthritis of right knee Take 1 tablet (50 mg) by mouth every 12 (twelve) hours if needed for severe pain. Do not start before May 16, 2025. 56 tablet Active rivaroxaban (Xarelto) 20 MG tabletIndications :Permanent atrial fibrillation (CMS/HCC) (HCC) Take 1 tablet (20 mg) by mouth at bedtime. Take with food. 90 tablet 2 025 2024 Discontinued traMADol (Ultram) 50 MG tabletIndications :Primary osteoarthritis of right knee Take 1 tablet (50 mg) by mouth every 12 (twelve) hours if needed for severe pain. Do not start before March 19, 2025. 56 tablet 025 2024 Discontinued(R eorder (will not trigger notification to Pharmacy)) traMADol (Ultram) 50 MG tabletIndications :Primary osteoarthritis of right knee Take 1 tablet (50 mg) by mouth every 12 (twelve) hours if needed for severe pain. Do not start before April 17, 2025. 56 tablet 025 2024 Discontinued(R eorder (will [...] years ago, will place referal for to [facility] eye care Screening for lung cancer 06/16/2022 Assessment & Plan (07/23/2024 10:04 AM EST): Will place lung cancer screening referral Assessment & Plan (05/31/2023 10:28 AM EST): Will refer for lung cancer screening Screening for prostate cancer 06/16/2022 Atrial fibrillation (CMS/HCC) 04/12/2022 Assessment & Plan (07/23/2024 10:03 AM [...] echocardiogram done past week, has appointment with state inspector 06/17/22, on Xarelto, no reported episode of [...] Encounters Date Type Department Care Team Description 05/13/2025 Refill [facility] [address] [place] [address] Tremaine Renee MD Primary osteoarthritis of right knee 05/08/2025 9:45 AM EST Office Visit [facility] ADULT DENTAL [address] [place] [address] Vicky Ogden DDS 04/28/2025 9:30 AM EST Telemedicine [facility] [address], [place] [phone] Deena Prince RN Back pain, unspecified back location, unspecified back pain laterality, unspecified chronicity 04/28/2025 Travel 04/25/2025 Refill [facility] MEDICINE [address] [place], [place] [phone] Tremaine Renee MD Permanent atrial fibrillation (CMS/HCC) (HCC) 04/22/2025 9:00 AM EST Office Visit [facility] [address] [place] [address] Vicky Ogden DDS 04/16/2025 Refill [facility] [address] [place] [address] Tremaine Renee MD Primary osteoarthritis of right knee 04/01/2025 Telephone [facility] [address] [place] [address] Tremaine Renee MD No Show 03/31/2025 Orders Only [facility] [address] [place] [address] Tremaine Renee MD Mixed hyperlipidemia 03/31/2025 Telephone [facility] MED[facility] [address] [place] [address] Tremaine Renee MD new script 03/31/2025 Telephone [facility] MED[facility] [address] [place] [address] Tremaine Renee MD 03/26/2025 10:00 AM EDT Office Visit [facility] [address] [place] [address] Vicky Ogden DDS 03/26/2025 Telephone [facility] [address] [place] [address] Tremaine Renee MD Hospital Follow-up 03/20/2025 Refill [facility] [address] [place] [address] Tremaine Renee MD 03/18/2025 Refill [facility] [address] [place] [address] Tremaine Renee MD 03/17/2025 Refill [facility] [address] [place] [address] Tremaine Renee MD Primary osteoarthritis of right knee 03/11/2025 11:30 AM EDT Office Visit [facility] [address] [place] [address] Tala Thurman MD Dizzy spells (Primary Dx); Acute bronchitis, unspecified organism 03/11/2025 Travel 03/11/2025 Telephone [facility] MEDICINE [address] [place] [address] Tremaine Renee MD Nurse Triage 03/10/2025 9:30 AM EDT Office Visit [facility] [address] [place] [address] Cecelia Simmonsricio 03/07/2025 11:30 AM EDT Office Visit [facility] [address] [place] [address] Hunter Simmons 03/06/2025 Telephone [facility] [address] [place] [address] Vicky Ogden DDKy 02/26/2025 1:00 PM EDT Office Visit [facility] [address] [place] [address] Vicky Ogden DDKy 02/18/2025 Refill [facility] [address] [place] [address] Tremaine Renee MD Primary osteoarthritis of right knee 02/18/2025 Refill [facility] [address] [place] [address] Tremaine Renee MD 02/16/2025 Refill [facility] [address] [place] [address] Tremaine Renee MD Primary osteoarthritis of right knee 02/14/2025 Telephone [facility] [address] [place] [address] Tremaine Renee MD Med Refill from Last 3 Months Immunizations Immunization Administration [...] your housing situation today? I have austin rianldi 07/23/[address] you li [...] Sign Reading Time Taken Comments Blood Pressure 110/80 04/22/2025 8:59 AM EST Pulse 48 03/11/2025 11:37 AM EDT Temperature 36.7 C (98.1 F) 03/11/2025 11:37 AM EDT Respiratory Rate 20 03/11/2025 11:37 AM EDT Oxygen Saturation 95% 03/11/2025 11:37 AM EDT Inhaled Oxygen Concentration - - Weight 107 kg (235 lb) 03/11/2025 11:37 AM EDT Height 180.3 cm (5' 11 ) 03/11/2025 11:37 AM EDT Body Mass Index 32.78 03/11/2025 11:37 AM EDT Plan of Treatment Upcoming Encounters Date Type Department Care Team (Late st Contact Info) Description 05/26/2025 10:00 AM EST Office Visit [facility] [address] [place] [address] Vicky Ogden DDS [address] [place] [address] 06/11/2025 9:45 AM EST Office Visit [facility] [address] [place] [address] rTemaine Renee MD [address] [place] [address] 06/13/2025 9:30 AM EST Office Visit [facility] [address] [place] [address] Ron Maradiaga 07/31/2025 10:00 AM EST Clinical Support [facility] [address] [place] [address] Deena Prince RN [address] [place] [address] Health Maintenance Due Date Last Done Comments CT Colonography 1953 Colonoscopy 1953 FIT 1955 Sigmoidoscopy 1955 Lung Cancer Screening 10/10/2003 RSV Patients and Patients Aged 60 years or older (1 - Risk 50-74 years 1-dose series) 10/10/2003 Dental Oral Exam 08/21/2024 02/21/2024 Dental Prophylaxis 08/21/2024 02/21/2024 Dental X-Ray: Bitewings 10/26/2024 10/26/2023 COVID-19 Vaccine ( - season) 2025 05/17/2022, 03/25/2021, 09/06/2020, Additional history exists Influenza Vaccine (#1) 2025 , 04/08/2021, 04/14/2020, Additional history exists Alcohol/Substance Use Screening 07/23/2025 07/23/2024 Depression Screening 07/23/2025 07/23/2024, 07/23/19 SDOH Screening 07/23/2025 07/23/2024 FOBT 09/25/2025 09/25/2024 Tobacco Screening 05/08/2026 05/08/2025 DTaP/Tdap/Td Vaccines (2 - Td or Tdap) 05/09/2026 05/09/2016 Colorectal Cancer Screening 09/26/2027 FIT DNA/Cologuard 09/26/2027 09/25/2024 Dental X-Ray: Full Mouth 03/11/2028 03/10/2025 Lipid Panel 07/16/2029 07/16/2024, 0705/2023, 02/21/2023, Additional history exists Pneumococcal Vaccine: 50+ [...] PRESENTATION, DETAILED AND EXTENSIVE TREATMENT PLANNING Routine 05/08/2025 9:45 AM EST DENTURE IMPRESSION Routine 05/08/2025 9: 45 AM EST CASE PRESENTATION, DETAILED AND EXTENSIVE TREATMENT PLANNING Routine 04/22/2025 9:00 AM EST DENTURE IMPRESSION Routine 04/22/2025 9: 00 AM EST NO CHARGE PROCEDURE Routine 03/26/2025 1 0:00 AM EDT POCT RAPID COVID ANTIGEN Routine 03/11/2025 11:49 AM EDT Acute bronchitis, unspecified organism CASE PRESENTATION, DETAILED AND EXTENSIVE TREATMENT PLANNING Routine 03/10/2025 9:30 AM EDT PANORAMIC RADIOGRAPHIC IMAGE Routine 03/10/2025 9:30 AM EDT RE-EVAL - LIMITED, PROBLEM FOCUSED (EST PATIENT; NOT POST-OP VISIT) Routine 03/10/2025 9:30 AM EDT CASE PRESENTATION, DETAILED AND EXTENSIVE TREATMENT PLANNING Routine 03/07/2025 11:30 AM EDT LIMITED ORAL EVALUATION - PROBLEM FOCUSED Routine 03/07/2025 11:30 AM EDT CASE PRESENTATION, DETAILED AND EXTENSIVE TREATMENT PLANNING Routine 02/26/2025 1:00 PM EDT 18 EXTRACTION, ERUPTED TOOTH OR EXPOSED ROOT (ELEVATION/FORCEPS REMOVAL) Routine 02/26/2025 1:00 PM EDT LAB COLOGUARD COLON CANCER SCREEN Routine [...] to Health Maintenance Results * POCT Rapid Covid-19 BinaxNOW (03/11/2025 11:49 AM EDT) Pathologist [facility] Rapid COVID Ag Negative QC Media Lot # [id number] Lot# Expiration Date [id number] Swab 03/11/2025 11:4 9 AM EDT Tala Thurman MD POINT OF CARE TEST ENTER/EDIT OR DERABLES Final Result * (ABNORMAL) Cologuard?? colon cancer screening (09/25/2024 8:30 AM EDT) Pathologist [facility] Cologuard Result Positive( A) Negative 10/03/2024 4:48 PM EDT [facility] (CLIA #:[id number]) Comment: The Cologuard Plus (TM) test was performed on this specimen. POSITIVE TEST RESULT. A positive (abnormal) Cologuard Plus result means the patient has a [id number] chance of having colorectal cancer (CRC) or [...] a 91% specificity (Cologuard Plus Clinician Brochure. [employer]. [place], [place] Visit [email or web address] for more test information, references, warnings, and precautions. Stool specimen (specimen) 09/25/2024 8:30 AM EDT 09/26/2024 10:39 AM EDT Tremaine Lazaro MD LAB MOLECULAR DIAG NOSTICS ORDERABLES Final Result [facility] (CLIA #:[id number]) [address] [place] [address], * (ABNORMAL) Lipid Panel, Standard (07/16/2024 9:18 AM EST) Triglycerides 77 <150 mg/dL [facility] Comment:Desirable Triglyceri de: less than 150 mg/dLBorderline High Triglyceride 150-199 mg/dLHigh Triglyceride: 200-499 mg/dLVery High Triglyceride: greater than or equal to 5OO mg/dL Cholesterol 169 <200 mg/dL [facility] Comment:Desirable Cholestero l: less than 200 mg/dLBorderline High Cholesterol: 200-239 mg/dLHigh Cholesterol: greater than 239 mg/dL LDL Cholesterol Calculated 109(H) <100 mg/dL [facility] Comment:Desirable LDL: less than 100 mg/dLNear Optimal/Above Optimal LDL: 110- 129 mg/dLBorderline High LDL: 130-159 mg/dLHigh LDL: 160-189 mg/dLVery High LDL: greater than or equal to 190 mg/dL HDL Cholesterol 45 >40 mg/dL [facility] Comment:Desirable HDL: great er than 40 mg/dL Note: This HDL assay may give artificially low results in patients with liver disease. Blood Venous blood specimen / Unknown 07/16/2024 9:18 AM EST 07/16/2024 2:14 PM EST Tremaine Lazaro MD LAB BLOOD ORDERABL ES Final Result Performing Organization Address [facility] Co de Phone Number [facility] [address] [place] [address] [phone] * (ABNORMAL) Hepatitis C Antibody with Reflex to HCV, RNA, Quantitative, Real- Time PCR (02/21/2023 9:59 AM EDT) Hepatitis C Antibody Reactive( A) Nonreactive [facility] Comment:Presumptive evidence of antibodies to HCV. 02/21/2023 9:59 AM EDT 02/21/2023 2:50 PM EDT Tremaine Lazaro MD LAB BLOOD ORDERABL ES Final Result Performing Organization Address [facility] Co de Phone Number [facility] [address] [place] [phone] from Last 3 Months or Most Recently Relevant to Health Maintenance Insurance [facility] STANDARD MEDICARE DENTAL - HSN FULL (MEDICAID) Care Teams Marketing Co Op Relationship Specialty Start Date End Date Tremaine Renee MD [address] [place] [address] PCP - General Internal Medicine 05/20/19
--- OUTSIDE RECORDS SUMMARY | 2025-05-15 16:52 | XMS_ITS | Encounter Summary ---
Author Organization [employer] Address [address] [facility] 7 [place] [address] Care Team Providers Care Director Of Counseling Name Role Phone Tremaine Renee MD Primary Care Prov ider Reason for Visit * Reason Comments Med Refill Encounter Details Date Type Department Care Team (Late st Contact Info) Description 06/03/2023 Refill [facility] MED[facility] [address] [place] [address] Tremaine Renee MD [address] [place], [place] [phone] Primary osteoarthritis of right knee Social History [...] Visit [facility] ADULT DENTAL [address] [place] [address] Vicky Ogden DDS [address] [place] [address] 06/11/2025 9:45 AM EST Office Visit [facility] [address] [place] [address] Tremaine Renee MD [address] [place] [address] 06/13/2025 9:30 AM EST Office Visit [facility] ADULT [facility] [address] [place] [address] Ron Maradiaga 07/31/2025 10:00 AM EST Clinical Support [facility] [address] [place] [address] Deena Prnice, SHI [address] [place] [address] documented as of this encounter Visit Diagnoses Diagnosis Primary osteoarthritis of right knee documented in this encounter Additional Health Concerns Assessment Noted Time PHQ-9 Depression Total Score: 0 12/27/19 23 9:36 AM EDT documented as of this encounter Care Teams Director Of Counseling Relationship Specialty Start Date End Date Tremaine Renee MD [address] [place] [address] PCP - General Internal Medicine 05/20/19 documented as of this encounter
--- OUTSIDE RECORDS SUMMARY | 2025-05-15 16:52 | XMS_ITS | Encounter Summary ---
Author Organization [employer] Address [address] [facility] 7 [place] [address] Care Team Providers Care Media Coordinator Name Role Phone Tremaine Renee MD Primary Care Prov ider Reason for Visit * Reason Comments Med Refill Encounter Details Date Type Department Care Team (Late st Contact Info) Description 07/03/2023 Refill [facility] [address] [place] [address] Tremaine Renee MD [address] [place], [place] [phone] Primary osteoarthritis of right knee Social History [...] Description 05/26/2025 10:00 AM EST Office Visit [facility] ADULT DENTAL [address] [place] [address] Vicky Ogden DDS [address] [place] [address] 06/11/2025 9:45 AM EST Office Visit [facility] [address] [place] [address] Tremaine Renee MD [address] [place] [address] 06/13/2025 9:30 AM EST Office Visit [facility] ADULT DENT[facility] [address] [place] [address] Ron Maradiaga 07/31/2025 10:00 AM EST Clinical Support [facility] [address] [place] [address] Deena Prince, SHI [address] [place] [address] documented as of this encounter Visit Diagnoses Diagnosis Primary osteoarthritis of right knee documented in this encounter Additional Health Concerns Assessment Noted Time PHQ-9 Depression Total Score: 0 12/27/19 23 9:36 AM EDT documented as of this encounter Care Teams Media Coordinator Relationship Specialty Start Date End Date Tremaine Renee MD [address] [place] [address] PCP - General Internal Medicine 05/20/19 documented as of this encounter
--- OUTSIDE RECORDS SUMMARY | 2025-05-15 16:52 | XMS_ITS | Encounter Summary ---
Author Organization [employer] Address [address] [facility] 7 [place] [address] Care Team Providers Care Evening Anchor Name Role Phone Tremaine Renee MD Primary Care Prov ider Reason for Visit * Reason Onset Date Comments Med Refill 08/08/2024 Encounter Details Date Type Department Care Team (Late st Contact Info) Description 08/08/2024 Refill [facility] [address] [place] [address] Tremaine Renee MD [address] [place] [address] Primary osteoarthritis of right knee Social History [...] 05/26/2025 10:00 AM EST Office Visit [facility] [address] [place] [address] Vicky Ogden DDS [address] [place] [address] 06/11/2025 9:45 AM EST Office Visit [facility] [address] [place] [address] Tremaine Renee MD [address] [place] [address] 06/13/2025 9:30 AM EST Office Visit [facility] [address] [place] [address] Ron Maradiaga 07/31/2025 10:00 AM EST Clinical Support [facility] [address] [place] [address] Deena Prince, SHI [address] [place] [address] documented as of this encounter Visit Diagnoses Diagnosis Primary osteoarthritis of right knee documented in this encounter Additional Health Concerns Assessment Noted Time PHQ-9 Depression Total Score: 0 07/23/19 25 9:20 AM EST documented as of this encounter Care Teams Evening Anchor Relationship Specialty Start Date End Date Tremaine Renee MD [address] [place] [address] PCP - General Internal Medicine 05/20/19 documented as of this encounter
--- OUTSIDE RECORDS SUMMARY | 2025-05-15 16:52 | XMS_ITS | Encounter Summary ---
Author Organization [employer] Address [address] [facility] 7 [place] [address] Care Team Providers Care Entry Rep Name Role Phone Tremaine Renee MD Primary Care Prov ider Encounter Details Date Type Department Care Team ([facility] st Contact Info) Description 07/12/2024 Orders Only [facility] PEDS [address] [place], [place] [phone] Tremaine Renee MD [address] [place] [address] Social History Tobacco Use Types Packs/Day Years [...] 10:00 AM EST Office Visit [facility] ADULT DENTAL [address] [place] [address] Vicky Ogden DDS [address] [place] [address] 06/11/2025 9:45 AM EST Office Visit [facility] MED [facility] PEDS [address] [place] [address] Tremaine Renee MD [address] [place] [address] 06/13/2025 9:30 AM EST Office Visit [facility] ADULT DENTAL [address] [place] [address] Ron Maradiaga 07/31/2025 10:00 AM EST Clinical Support [facility] MED [facility] PED[facility] [address] [place] [address] Deena Prince, SHI [address] [place] [address] documented as of this encounter Visit Diagnoses Not on filedocumented in this encounter Additional Health Concerns Assessment Noted Time PHQ-9 Depression Total Score: 0 12/27/19 23 9:36 AM EDT documented as of this encounter Care Teams Entry Rep Relationship Specialty Start Date End Date Tremaine Renee MD [address] [place] [address] PCP - General Internal Medicine 05/20/19 documented as of this encounter
--- OUTSIDE RECORDS SUMMARY | 2025-05-15 16:52 | XMS_ITS | Encounter Summary ---
Author Organization [employer] Address [address] [place] [address] 7 [place] [address] Care Team Providers Care Drill Doctor Name Role Phone Termaine Renee MD Primary Care Prov ider Reason for Visit * Reason Comments Med Refill Encounter Details Date Type Department Care Team ([facility] Contact Info) Description 01/14/2023 Refill [facility] P[facility] [address] [place], [place] [phone] Fani Mishra MD [address] [place], [place] [phone] Primary osteoarthritis of right knee Social History [...] Department Care Team (Late Contact Info) Description 05/26/2025 10:00 AM EST Office Visit [facility] ADULT DENTAL [address] [place], [place] [phone] Vicky Ogden DDS [address] [place], [place] [phone] 06/11/2025 9:45 AM EST Office Visit [facility] [address] [place] [address] Tremaine Renee MD [address] [place] [address] 06/13/2025 9:30 AM EST Office Visit [facility] ADULT DENT[facility] [address] [place] [address] Ron Maradiaga 07/31/2025 10:00 AM EST Clinical Support [facility] [address] [place] [address] Deena Prince, SHI [address] [place] [address] documented as of this encounter Visit Diagnoses Diagnosis Primary osteoarthritis of right knee documented in this encounter Additional Health Concerns Assessment Noted Time PHQ-9 Depression Total Score: 0 12/27/19 23 9:36 AM EDT documented as of this encounter Care Teams Drill Doctor Relationship Specialty Start Date End Date Tremaine Renee MD [address] [place] [address] PCP - General Internal Medicine 05/20/19 documented as of this encounter
--- OUTSIDE RECORDS SUMMARY | 2025-05-15 16:52 | XMS_ITS | Encounter Summary ---
Author Organization [employer] Address [address] [facility] 7 [place] [address] Care Team Providers Care Renal Social Worker Name Role Phone Tremaine Renee MD Primary Care Prov ider Reason for Visit * Reason Onset Date Comments Med Refill 04/22/2024 Encounter Details Date Type Department Care Team ([facility] st Contact Info) Description 04/22/2024 Telephone [facility] MEDICINE [address] [place] [address] Tremaine Renee MD [address] [place], [place] [phone] Med Refill Social History Tobacco Use Types [...] 50 MG tablet To be sent to: [facility]/pharmacy #[id number] [facility] [place] documented in this encounter Plan of Treatment Upcoming Encounters Date Type Department Care Team (Late st Contact Info) Description 05/26/2025 10:00 AM EST Office Visit [facility] ADULT DENTAL [address] [place] [address] Vicky Ogden DDS [address] [place] [address] 06/11/2025 9:45 AM EST Office Visit [facility] MED & PEDS [address] [place] [address] Tremaine Renee MD [address] [place] [address] 06/13/2025 9:30 AM EST Office Visit [facility] ADULT DENT[facility] [address] [place] [address] Ron Maradiaga 07/31/2025 10:00 AM EST Clinical Support [facility] MED [facility] PED[facility] [address] [place] [address] Deena Prince RN [address] [place] [address] documented as of this encounter Visit Diagnoses Not on filedocumented in this encounter Additional Health Concerns Assessment Noted Time PHQ-9 Depression Total Score: 0 12/27/19 23 9:36 AM EDT documented as of this encounter Care Teams Renal Social Worker Relationship Specialty Start Date End Date Tremaine Renee MD [address] [place] [address] PCP - General Internal Medicine 05/20/19 documented as of this encounter
--- OUTSIDE RECORDS SUMMARY | 2025-05-15 16:52 | XMS_ITS | Encounter Summary ---
Author Organization [employer] Address [address] 7 [place] [address] Care Team Providers Care Continuous Improvement Manager Name Role Phone Tremaine Renee MD Primary Care Prov ider Reason for Visit * Reason Onset Date Comments Med Refill 11/25/2024 Encounter Details Date Type Department Care Team ([facility] st Contact Info) Description 11/25/2024 Telephone [facility] MEDICINE [address] [place] [address] Tremaine Renee MD [address], [place] [phone] Med Refill Social History Tobacco Use Types [...] your housing situation today? I have [place] rin[facility] 07/23/[address] you li [...] 50 MG tablet To be sent to: [facility]/pharmacy #[id number] - [place], [place] - [address] documented in this encounter Plan of Treatment Upcoming Encounters Date Type Department Care Team (Late st Contact Info) Description 05/26/2025 10:00 AM EST Office Visit [facility] ADULT DENTAL [address] [place] [address] Vicky Ogden DDS [address] [place] [address] 06/11/2025 9:45 AM EST Office Visit [facility] MED & PEDS [address], [place] [phone] Tremaine Renee MD [address] [place] [address] 06/13/2025 9:30 AM EST Office Visit [facility] ADULT DENTAL [address], [place] [phone] Ron Maradiaga 07/31/2025 10:00 AM EST Clinical Support [facility] MED & PEDS [address] [place] [address] Deena Prince, SHI [address] [place] [address] documented as of this encounter Visit Diagnoses Not on filedocumented in this encounter Additional Health Concerns Assessment Noted Time PHQ-9 Depression Total Score: 0 07/23/19 25 9:20 AM EST documented as of this encounter Care Teams Continuous Improvement Manager Relationship Specialty Start Date End Date Tremaine Renee MD [address] [place] [address] PCP - General Internal Medicine 05/20/19 documented as of this encounter
== END 2025-05-15 13:42 | disposition home or self-care (01) ==
LOC: HO.HOS 12:58
PROVIDERS: PCP Internal Medicine; Visit Provider Physician Assistant
DX: M17.11 Unilateral primary osteoarthritis, right knee (principal)
CPT/HCPCS: 20610

== ENCOUNTER → 2025-05-15 12:57 | Outpatient (BNVA) | payer MEDICARE, MEDICAID, SELFPAY | PROVIDERS: PCP Internal Medicine; Visit Provider Physician Assistant | DX: M17.11 Unilateral primary osteoarthritis, right knee (principal) | CPT/HCPCS: 20610; J0665; J1100; J2003 ==